=== PATIENT | female | born 1950 | race Caucasian/White ===

== ENCOUNTER 2017-11-29 14:35 | Emergency (ER) | payer MEDICARE, OTHER ==
[2017-11-29 14:44] VITALS: RESP 16
[2017-11-29] MEDS ORDERED: KETOROLAC 30 MG/ML 1 ML VIAL IVP STA (14:48)
[2017-11-29] MEDS ORDERED: KETOROLAC 60 MG/2 ML VIAL IVP STA (14:48)
--- NOTE | 2017-11-29 14:51 | ED ---
General Adult HPI - General Chief complaint: Chest Pain Stated complaint: Chest Pain Time Seen by Provider: 11/29/17 14:35 Source: patient, RN notes reviewed Mode of arrival: wheelchair Limitations: no limitations - History of Present Illness Initial comments: This is a 67-year-old female presents emergency Department complaining of left sided rib pain. Patient states the pain is been there for a week if she moves it's worse if she takes deep breath is worse. Patient states she does feel little bit more short of breath since the pain is gotten worse in the last couple of days. Patient states touching it makes it worse as well. Patient has not noticed any rashes. patient states the pain is never gone completely away for the last week. Patient states she's had no fever chills or cough. Patient denies any anterior chest pain. Patient denies any diaphoresis. Patient denies any nausea vomiting. Patient denies any injury but she states she is extremely active and she thought she just hurt something with her activity. Patient denies any abdominal pain. Patient denies any leg swelling or calf pain. Patient denies headache patient denies numbness weakness. - Related Data Home Medications Medication Instructions Recorded Confirmed Cholecalciferol [Vitamin D3] 1,000 unit PO DAILY 11/29/17 11/29/17 Vitamin B Complex 1 cap PO DAILY 11/29/17 11/29/17 traMADol HCL [Ultram] 50 mg PO Q8H PRN 11/29/17 11/29/17 Previous Rx's Medication Instructions Recorded Hydrocodone/Acetaminophen [[place] 1 each PO Q8HR PRN #1 tab 11/29/17 5-325] Ibuprofen [Motrin] 600 mg PO Q6HR PRN #20 tab 11/29/17 Orphenadrine [Norflex] 100 mg PO Q12H #20 tablet.er 11/29/17 Allergies Allergy/AdvReac Type Severity Reaction Status Date / Time No Known Allergies Allergy Verified 11/29/17 15:04 Review of Systems ROS Statement: Those systems with pertinent positive or pertinent negative responses have been documented in the HPI. ROS Other: All systems not noted in ROS Statement are negative. Past Medical History Past Medical History: Rheumatoid Arthritis (RA) History of Any Multi-Drug Resistant Organisms: None Reported Past Surgical History: Cholecystectomy Additional Past Surgical History / Comment(s): gastric sleeve surgery Past Psychological History: No Psychological Hx Reported Smoking Status: Never smoker Past Alcohol Use History: None Reported Past Drug Use History: None Reported General Exam - General Exam Comments Initial Comments: GENERAL: Patient is well-developed and well-nourished. Patient is nontoxic and well- hydrated and is in mild distress. ENT: Neck is soft and supple. No significant lymphadenopathy is noted. Oropharynx is clear. Moist mucous membranes. EYES: The sclera were anicteric and conjunctiva were pink and moist. Extraocular movements were intact and pupils were equal round and reactive to light. Eyelids were unremarkable. PULMONARY: Unlabored respirations. Good breath sounds bilaterally. No audible rales rhonchi or wheezing was noted. CARDIOVASCULAR: There is a regular rate and rhythm without any murmurs gallops or rubs. left lateral chest wall is tender to palpation there is no rash in the area. ABDOMEN: Soft and nontender with normal bowel sounds. No palpable organomegaly was noted. There is no palpable pulsatile mass. SKIN: Skin is clear with no lesions or rashes and otherwise unremarkable. NEUROLOGIC: Patient is alert and oriented x3. Cranial nerves II through XII are grossly intact. Motor and sensory are also intact. Normal speech, volume and content. Symmetrical smile. MUSCULOSKELETAL: Normal extremities with adequate strength and full range of motion. No lower extremity swelling or edema. No calf tenderness. LYMPHATICS: No significant lymphadenopathy is noted PSYCHIATRIC: Normal psychiatric evaluation. Normal interpersonal interactions appears functionally intact in deals appropriately with others. No signs of depression. No signs of anxiety. Limitations: no limitations Course Vital Signs 11/29/17 11/29/17 14:40 15:30 Temperature 98.2 F Pulse Rate 69 66 Respiratory 16 16 Rate Blood Pressure 153/80 134/73 O2 Sat by Pulse 100 98 Oximetry Medical Decision Making - Medical Decision Making EKG shows sinus rhythm at 69 bpm AK interval 206 QRS is under QT interval 386 QTC is 413. EKG shows no ST segment elevation or depression no T-wave abnormalities are noted. patient's chest x-ray showed no acute abnormality. After patient received pain medicine she was completely pain-free even movement did not elicit the same pain she had earlier. - Lab Data Result diagrams: 11/29/17 14:56 11/29/17 14:56 Lab Results 11/29/17 11/29/17 11/29/17 Range/Units 14:56 14:56 14:56 WBC 6.6 (3.8-10.6) k/uL RBC 4.92 (3.80-5.40) m/uL Hgb 13.9 (11.4-16.0) gm/dL Hct 42.0 (34.0-46.0) % MCV 85.4 (80.0-100.0) fL MCH 28.3 (25.0-35.0) pg MCHC 33.1 (31.0-37.0) g/dL RDW 13.6 (11.5-15.5) % Plt Count 250 (150-450) k/uL Neutrophils % 49 % Lymphocytes % 38 % Monocytes % 7 % Eosinophils % 3 % Basophils % 0 % Neutrophils # 3.2 (1.3-7.7) k/uL Lymphocytes # 2.5 (1.0-4.8) k/uL Monocytes # 0.5 (0-1.0) k/uL Eosinophils # 0.2 (0-0.7) k/uL Basophils # 0.0 (0-0.2) k/uL PT (9.0-12.0) sec INR (<1.2) APTT (22.0-30.0) sec D-Dimer (<0.60) mg/L FEU Sodium 141 (137-145) mmol/L Potassium 4.2 (3.5-5.1) mmol/L Chloride 104 (98-107) mmol/L Carbon Dioxide 28 (22-30) mmol/L Anion Gap 9 mmol/L BUN 15 (7-17) mg/dL Creatinine 0.77 (0.52-1.04) mg/dL Est GFR (MDRD) Af Amer >60 (>60 ml/min/1.73 sqM) Est GFR (MDRD) Non-Af >60 (>60 ml/min/1.73 sqM) Glucose 97 (74-99) mg/dL Calcium 9.6 (8.4-10.2) mg/dL Magnesium 1.9 (1.6-2.3) mg/dL Total Bilirubin 0.5 (0.2-1.3) mg/dL AST 27 (14-36) U/L ALT 26 (9-52) U/L Alkaline Phosphatase 84 (38-126) U/L Total Creatine Kinase 54 (30-135) U/L CK-MB (CK-2) 0.5 (0.0-2.4) ng/mL CK-MB (CK-2) Rel Index 0.9 Troponin I <0.012 (0.000-0.034) ng/mL Total Protein 6.7 (6.3-8.2) g/dL Albumin 3.9 (3.5-5.0) g/dL 11/29/17 Range/Units 14:56 WBC (3.8-10.6) k/uL RBC (3.80-5.40) m/uL Hgb (11.4-16.0) gm/dL Hct (34.0-46.0) % MCV (80.0-100.0) fL MCH (25.0-35.0) pg MCHC (31.0-37.0) g/dL RDW (11.5-15.5) % Plt Count (150-450) k/uL Neutrophils % % Lymphocytes % % Monocytes % % Eosinophils % % Basophils % % Neutrophils # (1.3-7.7) k/uL Lymphocytes # (1.0-4.8) k/uL Monocytes # (0-1.0) k/uL Eosinophils # (0-0.7) k/uL Basophils # (0-0.2) k/uL PT 10.2 (9.0-12.0) sec INR 1.0 (<1.2) APTT 22.5 (22.0-30.0) sec D-Dimer 0.56 (<0.60) mg/L FEU Sodium (137-145) mmol/L Potassium (3.5-5.1) mmol/L Chloride (98-107) mmol/L Carbon Dioxide (22-30) mmol/L Anion Gap mmol/L BUN (7-17) mg/dL Creatinine (0.52-1.04) mg/dL Est GFR (MDRD) Af Amer (>60 ml/min/1.73 sqM) Est GFR (MDRD) Non-Af (>60 ml/min/1.73 sqM) Glucose (74-99) mg/dL Calcium (8.4-10.2) mg/dL Magnesium (1.6-2.3) mg/dL Total Bilirubin (0.2-1.3) mg/dL AST (14-36) U/L ALT (9-52) U/L Alkaline Phosphatase (38-126) U/L Total Creatine Kinase (30-135) U/L CK-MB (CK-2) (0.0-2.4) ng/mL CK-MB (CK-2) Rel Index Troponin I (0.000-0.034) ng/mL Total Protein (6.3-8.2) g/dL Albumin (3.5-5.0) g/dL Disposition Clinical Impression: Chest wall pain Disposition: HOME SELF-CARE Condition: Good Instructions: Chest Pain (ED) Prescriptions: Hydrocodone/Acetaminophen [[place] 5-325] 1 each PO Q8HR PRN #1 tab PRN Reason: Pain Ibuprofen [Motrin] 600 mg PO Q6HR PRN #20 tab PRN Reason: For pain Orphenadrine [Norflex] 100 mg PO Q12H #20 tablet.er Referrals: Wilmar Calixto DO [Primary Care Provider] - 1-2 days Time of Disposition: 16:27
[2017-11-29 15:09] LABS: Basophils % (A) 0 %; Eosinophils # (A) 0.2 k/uL (0-0.7); Eosinophils % (A) 3 %; HGB 13.9 gm/dL (11.4-16.0); Lymphocytes # (A) 2.5 k/uL (1.0-4.8); Lymphocytes % (A) 38 %; MCH 28.3 pg (25.0-35.0); MCHC 33.1 g/dL (31.0-37.0); MCV 85.4 fL (80.0-100.0); Mean Platelet Volume 7.4; Monocytes # (A) 0.5 k/uL (0-1.0); Monocytes % (A) 7 %; Neutrophils # (A) 3.2 k/uL (1.3-7.7); Neutrophils % (A) 49 %; Platelet Count 250 k/uL (150-450); RBC 4.92 m/uL (3.80-5.40); RDW 13.6 % (11.5-15.5); WBC 6.6 k/uL (3.8-10.6)
--- NOTE | 2017-11-29 15:15 | XR ---
EXAMINATION TYPE: XR chest 2V DATE OF EXAM: 11/29/2017 COMPARISON: 02/08/2009 HISTORY: Chest pain TECHNIQUE: Frontal and lateral views of the chest are obtained. FINDINGS: Heart and mediastinum are normal. Lungs are clear. Diaphragm is normal. There are chest le ads. Bony thorax is intact. IMPRESSION: Normal chest. No change.
[2017-11-29 15:18] LABS: ALT 26 U/L (9-52); AST 27 U/L (14-36); Albumin 3.9 g/dL (3.5-5.0); Alkaline Phosphatase 84 U/L (38-126); Anion Gap 9 mmol/L; Blood Urea Nitrogen 15 mg/dL (7-17); Calcium 9.6 mg/dL (8.4-10.2); Carbon Dioxide 28 mmol/L (22-30); Chloride 104 mmol/L (98-107); Glucose 97 mg/dL (74-99); Magnesium 1.9 mg/dL (1.6-2.3); Potassium 4.2 mmol/L (3.5-5.1); Sodium 141 mmol/L (137-145); Total Bilirubin 0.5 mg/dL (0.2-1.3); Total Protein 6.7 g/dL (6.3-8.2)
[2017-11-29 15:24] LABS: D-Dimer 0.56 mg/L FEU (<0.60); Partial Thromboplastin Time 22.5 sec (22.0-30.0); Prothrombin Time 10.2 sec (9.0-12.0)
[2017-11-29 15:29] LABS: Creatine Kinase 54 U/L (30-135)
[2017-11-29] MEDS ORDERED: HYDROmorphone 0.5 MG/0.5 ML SYRINGE IVP STA (15:38)
[2017-11-29 15:41] LABS: Creatine Kinase MB 0.5 ng/mL (0.0-2.4); Troponin I <0.012 ng/mL (0.000-0.034)
[2017-11-29] MEDS ORDERED: HYDROmorphone 2 MG/ML 1 ML SYRINGE IVP STA (15:44)
[2017-11-29] MEDS ORDERED: HYDROmorphone 4 MG/ML 1 ML SYRINGE IVP STA (15:47)
[2017-11-29] MEDS: DIAZEPAM 5 MG/ML 2 ML INJ IVP STA ×2 (15:48→15:49)
[2017-11-29 16:38] VITALS: BP 148/70; PULSE 70; TEMP 97.8
== END 2017-11-29 16:37 | disposition home or self-care (01) ==
LOC: EC 14:35
DX: R07.89 Other chest pain (principal); R06.02 Shortness of breath; Z79.899 Other long term (current) drug therapy; Z53.8 Procedure and treatment not carried out for other reasons
CPT/HCPCS: 36415; 85379; 80053; 82550; 82553; 83735; 84484; 85025; 85610; 85730; 71046; 99285; 96374; 96375 ×2; J3360; J1885; J1170; 93005

== ENCOUNTER → 2018-01-04 | Outpatient (CLI) | payer MEDICARE, OTHER ==
--- NOTE | 2018-01-05 18:28 | ECHOF ---
Referral Reason:I34.0 Nonrheumatic Mitral Valve Insuffieciency MEASUREMENTS -------- HEIGHT: 162.6 cm WEIGHT: 81.6 kg BP: 158/68 RVIDd: 2.8 cm (< 3.3) IVSd: 1.1 cm (0.6 - 1.1) LVIDd: 4.1 cm (3.9 - 5.3) LVPWd: 1.1 cm (0.6 - 1.1) IVSs: 1.7 cm LVIDs: 2.9 cm LVPWs: 1.5 cm LA Diam: 3.2 cm (2.7 - 3.8) LAESV Index (A-L): 20.68 ml/m Ao Diam: 3.1 cm (2.0 - 3.7) AV Cusp: 1.9 cm (1.5 - 2.6) MV EXCURSION: 18.829 mm (> 18.000) MV EF SLOPE: 101 mm/s (70 - 150) EPSS: 0.5 cm MV E Raul: 0.58 m/s MV DecT: 194 ms MV A Raul: 0.70 m/s MV E/A Ratio: 0.84 AV maxP.04 mmHg AV meanP.01 mmHg RAP: 5.00 mmHg RVSP: 22.84 mmHg FINDINGS -------- Sinus rhythm. This was a technically adequate study. The left ventricular size is normal. There is borderline concentric left ventricular hypertrophy. Overall left ventricular systolic function is normal with, an EF between 55 - 60 %. The right ventricle is normal in size. Normal LA size by volume 22+/-6 ml/m2. The right atrium is normal in size. There is mild to moderate aortic valve sclerosis. There is mild aortic stenosis present. Peak/teagan n gradient across the Aortic Valve is 22.04mmHg / 12.01mmHg. Can't exclude possible Bicuspid Aov. There is trace mitral regurgitation. Mild tricuspid regurgitation present. Right ventricular systolic pressure is normal at < 35 mmHg. The pulmonic valve was not well visualized. The aortic root size is normal. Normal inferior vena cava with normal inspiratory collapse consistent with estimated right atrial pre ssure of 5 mmHg. There is no pericardial effusion. CONCLUSIONS -------- 1. Sinus rhythm. 2. This was a technically adequate study. 3. The left ventricular size is normal. 4. There is borderline concentric left ventricular hypertrophy. 5. Overall left ventricular systolic function is normal with, an EF between 55 - 60 %. 6. The right ventricle is normal in size. 7. Normal LA size by volume 22+/-6 ml/m2. 8. The right atrium is normal in size. 9. There is mild to moderate aortic valve sclerosis. 10. There is mild aortic stenosis present. 11. Peak/mean gradient across the Aortic Valve is 22.04mmHg / 12.01mmHg. 12. Can't exclude possible Bicuspid Aov. 13. There is trace mitral regurgitation. 14. Mild tricuspid regurgitation present. 15. Right ventricular systolic pressure is normal at < 35 mmHg. 16. The pulmonic valve was not well visualized. 17. The aortic root size is normal. 18. Normal inferior vena cava with normal inspiratory collapse consistent with estimated right atrial pressure of 5 mmHg. 19. There is no pericardial effusion. MACHINE CARTON MARKER: Shala Paris RDCS
== END | disposition home or self-care (01) ==
LOC: RADECHMAIN 14:30
PROVIDERS: ATTEND Family Medicine
DX: I08.2 Rheumatic disorders of both aortic and tricuspid valves (principal)
CPT/HCPCS: 93306

== ENCOUNTER → 2018-01-25 | Outpatient (CLI) | payer MEDICARE, OTHER ==
--- NOTE | 2018-01-25 16:02 | BD ---
EXAMINATION TYPE: MG DEXA axial skeleton. DATE OF EXAM: 01/25/2018 COMPARISON: NONE CLINICAL HISTORY: 67-year-old female postmenopausal SCREENING for osteopenia Height: 5'3 Weight: 197 FRAX RISK QUESTIONS: Alcohol (3 or more units per day): n Family History (Parent hip fracture): n Glucocorticoids (More than 3mos): n (Ex: prednisone, prednisolone, methylprednisolone, dexamethasone, and hydrocortisone). History of Fracture in Adulthood: n Secondary Osteoporosis: 1. Type 1 Diabetes: n 2. Hyperthyroidism: n 3. Menopause before 45: y 4. Malnutrition: n 5. Chronic liver disease: n Rheumatoid Arthritis: y Current Tobacco Use: n RISK FACTORS HISTORY OF: Postmenopausal woman: MEDICATIONS: Additional Medications: pain Additional History: gastric sleeve surgery 2012, lost 125 lbs EXAM MEASUREMENTS: Bone mineral densitometry was performed using the [employer] System. Bone mineral density as measured about the Lumbar spine is: ----- L1-L4(G/cm2): 1.369 T Score Values are as follows: ----- L2: 1.0 ----- L3: 1.8 ----- L4: 2.9 ----- L1-L4;1.6 Bone mineral density about the R hip (g/cm2): 0.830 Bone mineral density about the L hip (g/cm2): 0.925 T Score values are as follows: -----R Neck: -1.2 -----L Neck: -1.5 -----R Total: -1.0 -----L Total: -0.3 IMPRESSION: Osteopenia (T Score between -2.5 and -1). There is slightly increased risk of fracture and the patient may be considered for treatment. Re-Screen 2-5 years. NOTE: T-SCORE=SD OF THE YOUNG ADULT MEAN.
--- NOTE | 2018-01-28 09:54 | MM ---
Reason for exam: screening (asymptomatic). Last mammogram was performed 2 years and 1 month ago. History: Patient is postmenopausal. Family history of breast cancer in sister at age 60 and breast cancer in sister at age 58. Physical Findings: A clinical breast exam by your physician is recommended on an annual basis and results should be correlated with mammographic findings. MG 3D Screening Mammo W/Cad Bilateral CC and MLO view(s) were taken. Prior study comparison: December 24, 2015, bilateral MG screening mammo w CAD. October 17, 2014, bilateral MG screening mammo w CAD. There are scattered fibroglandular densities. No significant changes when compared with prior studies. ASSESSMENT: Negative, BI-RAD 1 RECOMMENDATION: Routine screening mammogram of both breasts in 1 year.
== END | disposition home or self-care (01) ==
LOC: RADMAMWWP 13:20
PROVIDERS: ATTEND Family Medicine
DX: Z12.31 Encounter for screening mammogram for malignant neoplasm of breast (principal); Z13.820 Encounter for screening for osteoporosis; M85.80 Other specified disorders of bone density and structure, unspecified site
CPT/HCPCS: 77063; 77067; 77080

== ENCOUNTER → 2018-04-01 | Outpatient (CLI) | payer MEDICARE, OTHER | END | disposition home or self-care (01) | LOC: RADECHMAIN 16:18 | PROVIDERS: ATTEND Family Medicine | DX: Z53.9 Procedure and treatment not carried out, unspecified reason (principal) ==

== ENCOUNTER → 2019-03-07 | Outpatient (CLI) | payer MEDICARE, OTHER ==
--- NOTE | 2019-03-08 10:54 | ECHOF ---
Referral Reason:R01.1 cardiac murmur MEASUREMENTS -------- HEIGHT: 162.6 cm WEIGHT: 81.6 kg BP: 119/58 RVIDd: 2.9 cm (< 3.3) IVSd: 1.0 cm (0.6 - 1.1) LVIDd: 4.2 cm (3.9 - 5.3) LVPWd: 1.2 cm (0.6 - 1.1) IVSs: 1.5 cm LVIDs: 2.8 cm LVPWs: 1.8 cm LA Diam: 3.5 cm (2.7 - 3.8) LAESV Index (A-L): 24.89 ml/m Ao Diam: 3.2 cm (2.0 - 3.7) AV Cusp: 0.9 cm (1.5 - 2.6) EPSS: 0.1 cm MV E Raul: 0.62 m/s MV DecT: 246 ms MV A Raul: 0.63 m/s MV E/A Ratio: 0.98 AV maxP.39 mmHg AV meanP.52 mmHg RAP: 5.00 mmHg RVSP: 27.22 mmHg MV EF SLOPE: 140.01 mm/s (70 - 150) MV EXCURSION: 2.46 cm (> 18.000) FINDINGS -------- Sinus rhythm. This was a technically adequate study. The left ventricular size is normal. There is borderline concentric left ventricular hypertrophy. Overall left ventricular systolic function is normal with, an EF between 60 - 65 %. The right ventricle is normal in size. Normal LA size by volume 22+/-6 ml/m2. The right atrium is normal in size. Aneurysmal Interatrial septum. There is moderate aortic valve sclerosis. Trace amount of aortic regurgitation. There is mild ao rtic stenosis present. Peak/mean gradient across the Aortic Valve is 28.39mmHg / 14.52mmHg. Can't exclude possible Bicuspid Aov. The mitral valve leaflets are mildly thickened. Mild mitral annular calcification present. Mild m itral regurgitation is present. Mild tricuspid regurgitation present. Right ventricular systolic pressure is normal at < 35 mmHg. Trace/mild (physiologic) pulmonic regurgitation. The aortic root size is normal. Normal inferior vena cava with normal inspiratory collapse consistent with estimated right atrial pre ssure of 5 mmHg. There is no pericardial effusion. CONCLUSIONS -------- 1. Sinus rhythm. 2. This was a technically adequate study. 3. The left ventricular size is normal. 4. There is borderline concentric left ventricular hypertrophy. 5. Overall left ventricular systolic function is normal with, an EF between 60 - 65 %. 6. The right ventricle is normal in size. 7. Normal LA size by volume 22+/-6 ml/m2. 8. The right atrium is normal in size. 9. Aneurysmal Interatrial septum. 10. There is moderate aortic valve sclerosis. 11. Trace amount of aortic regurgitation. 12. There is mild aortic stenosis present. 13. Peak/mean gradient across the Aortic Valve is 28.39mmHg / 14.52mmHg. 14. Can't exclude possible Bicuspid Aov. 15. The mitral valve leaflets are mildly thickened. 16. Mild mitral annular calcification present. 17. Mild mitral regurgitation is present. 18. Mild tricuspid regurgitation present. 19. Right ventricular systolic pressure is normal at < 35 mmHg. 20. Trace/mild (physiologic) pulmonic regurgitation. 21. The aortic root size is normal. 22. Normal inferior vena cava with normal inspiratory collapse consistent with estimated right atrial pressure of 5 mmHg. 23. There is no pericardial effusion. CHEMISTRY TECHNICIAN: MAGALIE Covington
== END | disposition home or self-care (01) ==
LOC: RADECHMAIN 13:09
PROVIDERS: ATTEND Family Medicine
DX: I08.1 Rheumatic disorders of both mitral and tricuspid valves (principal); I25.3 Aneurysm of heart
CPT/HCPCS: 93306

== ENCOUNTER → 2019-03-10 | Outpatient (CLI) | payer MEDICARE, OTHER ==
--- NOTE | 2019-03-11 10:00 | MM ---
Reason for exam: screening (asymptomatic). Last mammogram was performed 1 year and 1 month ago. History: Patient is postmenopausal. Family history of breast cancer in sister at age 60 and breast cancer in sister at age 58. Physical Findings: A clinical breast exam by your physician is recommended on an annual basis and results should be correlated with mammographic findings. MG 3D Screening Mammo W/Cad Bilateral CC and MLO view(s) were taken. Prior study comparison: January 25, 2018, bilateral MG 3d screening mammo w/cad. December 24, 2015, bilateral MG screening mammo w CAD. There are scattered fibroglandular densities. No significant changes when compared with prior studies. ASSESSMENT: Benign, BI-RAD 2 RECOMMENDATION: Routine screening mammogram of both breasts in 1 year.
== END | disposition home or self-care (01) ==
LOC: RADMAMWWP 12:22
PROVIDERS: ATTEND Family Medicine
DX: Z12.31 Encounter for screening mammogram for malignant neoplasm of breast (principal)
CPT/HCPCS: 77063; 77067

== ENCOUNTER → 2020-05-15 | Outpatient (CLI) | payer MEDICARE, OTHER ==
--- NOTE | 2020-05-16 08:43 | MM ---
Reason for exam: screening (asymptomatic). Last mammogram was performed 1 year and 2 months ago. History: Patient is postmenopausal. Family history of breast cancer in sister at age 60 and breast cancer in sister at age 58. Physical Findings: A clinical breast exam by your physician is recommended on an annual basis and results should be correlated with mammographic findings. MG 3D Screening Mammo W/Cad Bilateral CC and MLO view(s) were taken. Prior study comparison: March 10, 2019, bilateral MG 3d screening mammo w/cad. January 25, 2018, bilateral MG 3d screening mammo w/cad. The breast tissue is heterogeneously dense. This may lower the sensitivity of mammography. There are benign appearing round linear calcifications bilaterally. There is no discrete abnormality. ASSESSMENT: Benign, BI-RAD 2 RECOMMENDATION: Routine screening mammogram of both breasts in 1 year.
== END | disposition home or self-care (01) ==
LOC: RADMAMWWP 11:18
PROVIDERS: ATTEND Family Medicine
DX: Z12.31 Encounter for screening mammogram for malignant neoplasm of breast (principal)
CPT/HCPCS: 77063; 77067

== ENCOUNTER → 2020-08-23 | Outpatient (CLI) | payer MEDICARE, OTHER | END | disposition home or self-care (01) | LOC: LABWHC1 15:21 | PROVIDERS: ATTEND Family Medicine | DX: R19.7 Diarrhea, unspecified (principal) | CPT/HCPCS: U0003; C9803 ==

== ENCOUNTER → 2021-04-11 | Outpatient (CLI) | payer MEDICARE, OTHER ==
--- NOTE | 2021-04-11 18:13 | ECHOF ---
Referral Reason:I35.0 Nnrheumatic aortic stenosis; R09.89 other MEASUREMENTS -------- HEIGHT: 165.1 cm WEIGHT: 77.1 kg BP: RVIDd: 3.6 cm (< 3.3) IVSd: 1.4 cm (0.6 - 1.1) LVIDd: 4.4 cm (3.9 - 5.3) LVPWd: 1.3 cm (0.6 - 1.1) IVSs: 1.7 cm LVIDs: 3.2 cm LVPWs: 1.6 cm LAESV Index (A-L): 23.36 ml/m Ao Diam: 2.9 cm (2.0 - 3.7) AV Cusp: 1.6 cm (1.5 - 2.6) LA Diam: 3.4 cm (2.7 - 3.8) MV EXCURSION: 20.174 mm (> 18.000) MV EF SLOPE: 47 mm/s (70 - 150) EPSS: 0.4 cm MV E Raul: 0.64 m/s MV DecT: 211 ms MV A Raul: 0.73 m/s MV E/A Ratio: 0.88 AV maxP.92 mmHg AV meanP.75 mmHg RAP: 5.00 mmHg RVSP: 38.72 mmHg FINDINGS -------- Sinus rhythm. This was a technically adequate study. The left ventricular size is normal. There is moderate concentric left ventricular hypertrophy. O verall left ventricular systolic function is normal with, an EF between 55 - 60 %. The diastolic fi lling pattern is normal for the age of the patient 10.43. The right ventricle is mildly enlarged. Normal LA size by volume 22+/-6 ml/m2. The right atrial size is normal. Interatrial and interventricular septum intact. There is no evidence of aortic regurgitation. There is moderate aortic stenosis present. Peak/teagan n gradient across the Aortic Valve is 46.92mmHg / 27.75mmHg. Functionally bicuspid aortic valve. Mild mitral annular calcification present. Mild mitral regurgitation is present. The tricuspid valve appears structurally normal. Mild tricuspid regurgitation present. There is m ild pulmonary hypertension. The right ventricular systolic pressure, as measured by Doppler, is 38. 72mmHg. There is no pulmonic regurgitation present. The aortic root size is normal. Normal inferior vena cava with normal inspiratory collapse consistent with estimated right atrial pre ssure of 5 mmHg. There is no pericardial effusion. CONCLUSIONS -------- 1. There is moderate concentric left ventricular hypertrophy. 2. Overall left ventricular systolic function is normal with, an EF between 55 - 60 %. 3. The right ventricle is mildly enlarged. 4. Normal LA size by volume 22+/-6 ml/m2. 5. There is moderate aortic stenosis present. 6. Peak/mean gradient across the Aortic Valve is 46.92mmHg / 27.75mmHg. 7. Functionally bicuspid aortic valve. 8. Mild mitral annular calcification present. 9. Mild mitral regurgitation is present. 10. Mild tricuspid regurgitation present. 11. There is mild pulmonary hypertension. 12. There is no pericardial effusion. FISHERIES DIRECTOR: Tatiana Hernandez RDCS
--- NOTE | 2021-04-12 07:15 | US ---
EXAMINATION TYPE: US carotid duplex BILAT DATE OF EXAM: 04/11/2021 COMPARISON: NONE CLINICAL HISTORY: R09.89 OTHER SPECIFIED SYMPTOMS AND SIGNS INVOLVING. Bruit EXAM MEASUREMENTS: RIGHT: Peak Systolic Velocity (PSV) cm/sec ----- Right CCA: 70.6 ----- Right ICA: 104.0 ----- Right ECA: 96.8 ICA/CCA ratio: 1.5 RIGHT: End Diastole cm/sec ----- Right CCA: 19.8 ----- Right ICA: 35.7 ----- Right ECA: 12.5 LEFT: Peak Systolic Velocity (PSV) cm/sec ----- Left CCA: 54.5 ----- Left ICA: 99.7 ----- Left ECA: 69.2 ICA/CCA ratio: 1.8 LEFT: End Diastole cm/sec ----- Left CCA: 16.9 ----- Left ICA: 40.1 ----- Left ECA: 0 VERTEBRALS (direction of flow): Right Vertebral: Antegrade Left Vertebral: Antegrade Rhythm: Normal No significant stenosis seen IMPRESSION: No sonographic evidence for hemodynamically significant stenosis in the bilateral carotid arteries. Criteria for Assigning % of Stenosis / Diameter reduction (Estimation based on the indirect measurements of the internal carotid artery velocities (ICA PSV). 1. Normal (no stenosis)=ICA PSV < 125 cm/s: ratio < 2.0: ICA EDV<40 cm/s. 2. Less than 50% stenosis=ICA PSV < 125 cm/s: ratio < 2.0: ICA EDV<40 cm/s. 3. 50 to 69% stenosis=ICA PSV of 125 to 230 cm/s: ration 2.0 ? 4.0: ICA EDV 40-100 cm/s. 4. Greater than 70% stenosis to near occlusion= ICA PSV > 230 cm/s: ratio > 4.0: ICA EDV > 100 cm/s. 5. Near occlusion= ICA PSV velocities may be low or undetectable: variable ratio and ICA EDV. 6. Total occlusion=unable to detect flow.
== END | disposition home or self-care (01) ==
LOC: RADECHMAIN 14:54
PROVIDERS: ATTEND Family Medicine
DX: I08.1 Rheumatic disorders of both mitral and tricuspid valves (principal); I27.20 Pulmonary hypertension, unspecified; R09.89 Other specified symptoms and signs involving the circulatory and respiratory systems
CPT/HCPCS: 93306; 93880

== ENCOUNTER → 2022-07-01 | Outpatient (CLI) | payer MEDICARE, OTHER ==
--- NOTE | 2022-07-11 09:24 | MM ---
Reason for Exam: Screening (asymptomatic). Last mammogram was performed 2 year(s) and 2 month(s) ago. Patient History: Menarche at age 14. First Full-Term at age 26. Left ovary removed at age 29. Right ovary removed at age 29. Hysterectomy at age 29. Postmenopausal. Sister had breast cancer, age 60. Sister had breast cancer, age 58. Risk Values: Kavitha 5 year model risk: 6.0%. NCI Lifetime model risk: 16.5%. Prior Study Comparison: 01/25/2018 Bilateral Screening Mammogram, [facility]. 03/10/2019 Bilateral Screening Mammogram, [facility]. 05/15/2020 Bilateral Screening Mammogram, [facility]. Tissue Density: There are scattered fibroglandular densities. Findings: Analyzed By CAD. There is no suspicious group of microcalcifications or new suspicious mass in either breast. Overall Assessment: Benign, BI-RAD 2 Management: Screening Mammogram of both breasts in 1 year. A clinical breast exam by your physician is recommended on an annual basis and results should be correlated with mammographic findings. Electronically signed and approved by: Jam Martin M.D. Radiologis
== END | disposition home or self-care (01) ==
LOC: RADMAMWWP 20:59
PROVIDERS: ATTEND Family Medicine
DX: Z12.31 Encounter for screening mammogram for malignant neoplasm of breast (principal); Z78.0 Asymptomatic menopausal state; Z80.3 Family history of malignant neoplasm of breast
CPT/HCPCS: 77063; 77067

== ENCOUNTER 2023-04-04 07:41 | Emergency (ER) | payer MEDICARE, OTHER ==
[2023-04-04 07:54] VITALS: TEMP 98.2
[2023-04-04] MEDS ORDERED: KETOROLAC 15 MG/ML 1 ML VIAL IVP STA (08:25)
[2023-04-04] MEDS ORDERED: ORPHENADRINE 30 MG/ML 2 ML VIAL IVP STA (08:26)
--- NOTE | 2023-04-04 09:20 | ED ---
General Adult HPI - General Chief complaint: Back Pain/Injury Stated complaint: numbness rt side Time Seen by Provider: 04/04/23 07:59 Source: patient, family (daughter), RN notes reviewed Mode of arrival: wheelchair Limitations: physical limitation - History of Present Illness Initial comments: Patient is a 72-year-old female presenting to the emergency room with severe pain in the right shoulder with reduced range of motion without trauma. She also reports radiculopathy radiating from the shoulder towards the neck and down her arm. She denies any numbness or tingling not in these locations. She states that the pain began during the night and has progressively worsened. She denies any abnormal activity previously that would've possibly strained her shoulder. She denies any focal neurological deficits, weakness not related to he r pain in her right shoulder, chest pain, shortness of breath, abdominal pain, nausea, vomiting, fevers or chills. She took [id number] Tylenol for pain without any relief in symptoms. She has a past medical history significant for rheumatoid arthritis but is not currently on any immune suppressant therapy. - Related Data Home Medications Medication Instructions Recorded Confirmed Cholecalciferol [Vitamin D3] 1,000 unit PO DAILY 11/29/17 11/29/17 Vitamin B Complex 1 cap PO DAILY 11/29/17 11/29/17 traMADol HCL [Ultram] 50 mg PO Q8H PRN 11/29/17 11/29/17 Previous Rx's Medication Instructions Recorded Hydrocodone/Acetaminophen [[place] 1 each PO Q8HR PRN #1 tab 11/29/17 5-325] Ibuprofen [Motrin] 600 mg PO Q6HR PRN #20 tab 11/29/17 Orphenadrine [Norflex] 100 mg PO Q12H #20 tablet.er 11/29/17 Cyclobenzaprine HCl 5 mg PO TID PRN 7 Days #21 tab 04/04/23 Ketorolac [Toradol] 10 mg PO Q8H PRN 5 Days #15 tab 04/04/23 Allergies Allergy/AdvReac Type Severity Reaction Status Date / Time No Known Allergies Allergy Verified 04/04/23 07:54 Review of Systems ROS Statement: Those systems with pertinent positive or pertinent negative responses have been documented in the HPI. ROS Other: All systems not noted in ROS Statement are negative. Past Medical History Past Medical History: Rheumatoid Arthritis (RA) History of Any Multi-Drug Resistant Organisms: None Reported Past Surgical History: Bariatric Surgery, Cholecystectomy, Joint Replacement Additional Past Surgical History / Comment(s): gastric sleeve surgery, rt knee Past Psychological History: No Psychological Hx Reported Smoking Status: Never smoker Past Alcohol Use History: None Reported Past Drug Use History: None Reported General Exam Limitations: physical limitation General appearance: alert Head exam: Present: atraumatic, normocephalic, normal inspection Eye exam: Present: normal appearance, PERRL, EOMI. Absent: scleral icterus, conjunctival injection, periorbital swelling ENT exam: Present: normal exam, mucous membranes moist Neck exam: Present: normal inspection, full ROM. Absent: tenderness Respiratory exam: Present: normal lung sounds bilaterally. Absent: respiratory distress, wheezes, rales, rhonchi, stridor Cardiovascular Exam: Present: regular rate, normal rhythm, normal heart sounds. Absent: systolic murmur, diastolic murmur, rubs, gallop, clicks GI/Abdominal exam: Present: soft, normal bowel sounds. Absent: distended, tenderness, guarding, rebound, rigid Right Shoulder Exam: Present: tenderness, tenderness over AC joint. Absent: full ROM, swelling, abrasion, laceration, ecchymosis, deformity, crepitus, dislocation Vascular: Absent: vascular compromise Back exam: Present: normal inspection. Absent: vertebral tenderness Neurological exam: Present: alert, oriented X3, CN II-XII intact Expanded Cranial nerves: EOM's Intact: Normal, Gag Reflex: Normal, Tongue Deviation: Normal, Nystagmus: Normal, Facial Sensation: Abnormal Right (limited left jaw line radiating from shoulder, neck and trapezius), Facial Palsy with Forehead Movement: Normal, Facial Palsy without Forehead Movement: Normal Ataxia: Absent: yes Sensory exam: Upper Extremity Light Touch: Abnormal Right (Upper arm shoulder and trapezius) [place] Total: 15 Psychiatric exam: Present: normal affect, normal mood Skin exam: Present: warm, dry, intact, normal color. Absent: rash Course Vital Signs 04/04/23 04/04/23 04/04/23 07:51 09:00 10:20 Temperature 98.2 F Pulse Rate 69 64 76 Respiratory 20 18 18 Rate Blood Pressure 150/77 133/99 151/90 O2 Sat by Pulse 98 98 98 Oximetry Medical Decision Making - Medical Decision Making Was pt. sent in by a medical professional or institution (RUBINA Kiser, POULTRY VACCINATOR, urgent care, hospital, or care home...) When possible be specific @ -No Did you speak to anyone other than the patient for history (EMS, parent, family, police, friend...)? What history was obtained from this source @ -No Did you review nursing and triage notes (agree or disagree)? Why? @ -I reviewed and agree with nursing and triage notes Were old charts reviewed (outside hosp., previous admission, EMS record, old EKG, old radiological studies, urgent care reports/EKG's, care home records)? Report findings @ -No old charts were reviewed Differential Diagnosis (chest pain, altered mental status, abdominal pain women, abdominal pain men, vaginal bleeding, weakness, fever, dyspnea, syncope, headache, dizziness, GI bleed, back pain, seizure, CVA, palpatations, mental health, musculoskeletal)? @ -Differential Musculoskeletal Muscular strain, contusion, ligament sprain, fracture, arthritis, septic arthritis, bursitis, cellulitis, muscle spasm, nerve compression, DVT, arterial occlusion, herpes zoster, electrolyte abnormality, tumor.... This is not meant to be in all inclusive list EKG interpreted by me (3pts min.). @ -Sinus rhythm, ventricular rate 65 bpm, FL interval 140 ms, QRS duration 97 ms, QT/QTC 383/395 ms, PRT axes 60, 48, 24 X-rays interpreted by me (1pt min.). @ -X-ray of right shoulder: Capsular hypertrophy concerning for low-grade sprain. X-ray cervical spine: Degenerative disc disease. Foramen narrowing moderate right sized C7-T1. No fracture or subluxation. X-ray thoracic spine: Spondylosis mid and lower thoracic spine, no fracture. CT interpreted by me (1pt min.). @ -None done U/S interpreted by me (1pt. min.). @ -None done What testing was considered but not performed or refused? (CT, X-rays, U/S, labs)? Why? @ -None What meds were considered but not given or refused? Why? @ -None Did you discuss the management of the patient with other professionals (professionals i.e. RUBINA Kiser, POULTRY VACCINATOR, lab, RT, psych nurse, social human services assistants, gas engine operator, teacher, human resources officer, piano case maker)? Give summary @ -No Was smoking cessation discussed for >3mins.? @ -No Was critical care preformed (if so, how long)? @ -No Were there social determinants of health that impacted care today? How? (Homelessness, low income, unemployed, alcoholism, drug addiction, transportation, low edu. Level, literacy, decrease access to med. care, shelter, rehab)? @ -No Was there de-escalation of care discussed even if they declined (Discuss DNR or withdrawal of care, Hospice)? DNR status @ -No What co-morbidities impacted this encounter? (DM, HTN, Smoking, COPD, CAD, Cancer, CVA, ARF, Chemo, Hep., AIDS, mental health diagnosis, sleep apnea, morbid obesity)? @ -None Was patient admitted / discharged? Hospital course, mention meds given and route, prescriptions, significant lab abnormalities, going to OR and other pert inent info. @ -72-year-old female presenting to the emergency room with severe pain in the right shoulder with reduced range of motion without trauma. She also reports radiculopathy radiating from the shoulder towards the neck and down her arm. She denies any numbness or tingling not in these locations. Will give Toradol IV along with reduced Norflex dose of 30 mg IV. Triag nurse completed EKG will order. Will also obtain laboratory studies of CBC, CMP, and troponin. EKG shows sinus rhythm. No abnormalities on laboratory studies including normal CBC, normal CMP and negative troponin. X-ray of shoulder concerning for low- grade sprain versus degenerative changes. C7-T1 right moderate foramen narrowing noted on cervical spine x-ray. Thoracic spine without any acute abnormalities. Pain improved with Toradol and Norflex. Findings discussed with patient and daughter at bedside. Advised no indication for further diagnostic imaging or laboratory studies. Encouraged gentle range of motion as tolerated along with continuation of muscle relaxer and anti-inflammatory. Advised may also use previously prescribed tramadol for pain as well. Advised not to drive after taking Flexeril and not to take Flexeril and tramadol together. Encouraged follow-up with primary care provider. Questions and concerns answered. Return parameters to the emergency room discussed. Will discharge home in stable condition on anti-inflammatory and muscle relaxer to treat right shoulder sprain along with cervical radiculopathy encouraging range of motion and follow-up with primary care provider. Undiagnosed new problem with uncertain prognosis? @ -No Drug Therapy requiring intensive monitoring for toxicity (Heparin, Nitro, Insulin, Cardizem)? @ -No Were any procedures done? @ -No Diagnosis/symptom? @ -Right shoulder strain Acute, or Chronic, or Acute on Chronic? @ -Acute Uncomplicated (without systemic symptoms) or Complicated (systemic symptoms)? @ -Uncomplicated Side effects of treatment? @ -No Exacerbation, Progression, or Severe Exacerbation? @ -No Poses a threat to life or bodily function? How? (Chest pain, [place], DC, pneumonia, PE, COPD, DKA, ARF, appy, cholecystitis, CVA, Diverticulitis, Homicidal, Suicidal, threat to staff... and all critical care pts) @ -No Diagnosis/symptom? @ -Cervical radiculopathy Acute, or Chronic, or Acute on Chronic? @ -Acute Uncomplicated (without systemic symptoms) or Complicated (systemic symptoms)? @ -Uncomplicated Side effects of treatment? @ -none Exacerbation, Progression, or Severe Exacerbation] @ -no Poses a threat to life or bodily function? @ -no Case discussed with Dr. Juárez. - Lab Data Result diagrams: 04/04/23 09:06 04/04/23 09:06 Lab Results 04/04/23 04/04/23 04/04/23 Range/Units 09:06 09:06 09:06 WBC 7.4 (3.8-10.6) k/uL RBC 4.52 (3.80-5.40) m/uL Hgb 13.1 (11.4-16.0) gm/dL Hct 39.4 (34.0-46.0) % MCV 87.2 (80.0-100.0) fL MCH 29.0 (25.0-35.0) pg MCHC 33.3 (31.0-37.0) g/dL RDW 13.9 (11.5-15.5) % Plt Count 170 (150-450) k/uL MPV 9.1 Neutrophils % 69 % Lymphocytes % 18 % Monocytes % 8 % Eosinophils % 2 % Basophils % 0 % Neutrophils # 5.2 (1.3-7.7) k/uL Lymphocytes # 1.4 (1.0-4.8) k/uL Monocytes # 0.6 (0-1.0) k/uL Eosinophils # 0.2 (0-0.7) k/uL Basophils # 0.0 (0-0.2) k/uL Sodium 138 (137-145) mmol/L Potassium 4.1 (3.5-5.1) mmol/L Chloride 104 (98-107) mmol/L Carbon Dioxide 28 (22-30) mmol/L Anion Gap 6 mmol/L BUN 17 (7-17) mg/dL Creatinine 0.72 (0.52-1.04) mg/dL Est GFR (CKD-EPI)AfAm >90 (>60 ml/min/1.73 sqM) Est GFR (CKD-EPI)NonAf 85 (>60 ml/min/1.73 sqM) Glucose 97 (74-99) mg/dL Calcium 8.8 (8.4-10.2) mg/dL Total Bilirubin 0.7 (0.2-1.3) mg/dL AST 24 (14-36) U/L ALT 13 (4-34) U/L Alkaline Phosphatase 91 (38-126) U/L Troponin I <0.012 (0.000-0.034) ng/mL Total Protein 6.5 (6.3-8.2) g/dL Albumin 3.7 (3.5-5.0) g/dL Disposition Clinical Impression: Sprain of right shoulder joint, Foraminal stenosis of cervical region Disposition: HOME SELF-CARE Condition: Stable Instructions (If sedation given, give patient instructions): Shoulder Sprain (ED), Cervical Radiculopathy (ED) Additional Instructions: Utilize muscle relaxer of Flexeril as needed for muscle spasms. Utilize Toradol as needed for pain, do not take other NSAIDs when taking Toradol. May continue to use your already prescribed tramadol for pain as well. Do not take tramadol and Flexeril together. Gentle range of motion as tolerated encouraged. Please follow-up with your primary care provider. Please return to the Emergency Department if symptoms worsen or any other concerns. Prescriptions: Cyclobenzaprine HCl 5 mg PO TID PRN 7 Days #21 tab PRN Reason: Spasms Ketorolac [Toradol] 10 mg PO Q8H PRN 5 Days #15 tab PRN Reason: Pain Is patient prescribed a controlled substance at d/c from ED?: No Referrals: Wilmar Calixto DO [Primary Care Provider] - 1-2 days Time of Disposition: 10:39
[2023-04-04 09:37] LABS: Basophils % (A) 0 %; Eosinophils # (A) 0.2 k/uL (0-0.7); Eosinophils % (A) 2 %; HCT 39.4 % (34.0-46.0); HGB 13.1 gm/dL (11.4-16.0); Lymphocytes # (A) 1.4 k/uL (1.0-4.8); Lymphocytes % (A) 18 %; MCHC 33.3 g/dL (31.0-37.0); MCV 87.2 fL (80.0-100.0); Mean Platelet Volume 9.1; Monocytes # (A) 0.6 k/uL (0-1.0); Monocytes % (A) 8 %; Neutrophils # (A) 5.2 k/uL (1.3-7.7); Neutrophils % (A) 69 %; Platelet Count 170 k/uL (150-450); RBC 4.52 m/uL (3.80-5.40); RDW 13.9 % (11.5-15.5); WBC 7.4 k/uL (3.8-10.6)
[2023-04-04 09:46] VITALS: RESP 18
--- NOTE | 2023-04-04 09:48 | XR ---
EXAMINATION TYPE: XR cervical spine 5 views comp, XR thoracic spine 3 views complete, XR shoulder com plete 3 views RT DATE OF EXAM: 04/04/2023 COMPARISON: None HISTORY: 72-year-old female right shoulder pain with radiculopathy FINDINGS: Cervical spine: No predental space widening or prevertebral soft tissue swelling. Advanced facet and uncovertebral efren int arthropathy is present. Mild multilevel degenerative disc disease. Trace grade 1 anterolisthesis C6-C7. Remaining alignment appears maintained. Mild bony neuroforaminal narrowing on the right and C4 -C5 and C6-C7. Possibly more moderate at C7-T1. On the left, mild bony neuroforaminal narrowing at C6 -C7 and C7-T1. Normal odontoid view. Thoracic spine: 12 vertebrae thoracic vertebral bodies. All pedicles are visualized. There is some anterior and right lateral endplate spondylosis mid to lower thoracic spine noted. Vertebral body heights are preserved and alignment is maintained. Right shoulder: Capsular hypertrophy at the AC joint. Joint spaces relatively maintained. Subacromial space is preser radu. No tendinous or bursal calcifications. No acute fracture, subluxation, or dislocation. IMPRESSION: 1. Cervical spine: Multilevel advanced uncovertebral joint and facet arthropathy. Degenerative grade 1 anterolisthesis C6-C7. Possible moderate right-sided neuroforaminal narrowing at C7-T1 and mild at C4-C5 and C6-C7. 2. Thoracic spine: Anterior and right lateral endplate spondylosis mid to lower thoracic spine. No ve rtebral compression collapse or malalignment seen. 3. Right shoulder: Capsular hypertrophy of the AC joint could be on a degenerative basis or could ref lect a low-grade AC joint sprain. Otherwise, no acute osseous abnormality seen.
[2023-04-04 09:50] LABS: ALT 13 U/L (4-34); AST 24 U/L (14-36); African American GFR (CKD) >90 (>60 ml/min/1.73 sqM); Albumin 3.7 g/dL (3.5-5.0); Alkaline Phosphatase 91 U/L (38-126); Anion Gap 6 mmol/L; Blood Urea Nitrogen 17 mg/dL (7-17); Calcium 8.8 mg/dL (8.4-10.2); Carbon Dioxide 28 mmol/L (22-30); Chloride 104 mmol/L (98-107); Glucose 97 mg/dL (74-99); Non-African American GFR(CKD) 85 (>60 ml/min/1.73 sqM); Potassium 4.1 mmol/L (3.5-5.1); Sodium 138 mmol/L (137-145); Total Bilirubin 0.7 mg/dL (0.2-1.3); Total Protein 6.5 g/dL (6.3-8.2)
[2023-04-04 10:21] VITALS: BP 151/90; PULSE 76
== END 2023-04-04 10:59 | disposition home or self-care (01) ==
LOC: EC 07:41
DX: S43.401A Unspecified sprain of right shoulder joint, initial encounter (principal); M48.02 Spinal stenosis, cervical region; M43.12 Spondylolisthesis, cervical region; M47.812 Spondylosis without myelopathy or radiculopathy, cervical region; M47.814 Spondylosis without myelopathy or radiculopathy, thoracic region; X58.XXXA Exposure to other specified factors, initial encounter
CPT/HCPCS: 36415; 93005; 80053; 84484; 85025; 72072; 72050; 73030; 99283; 96374; 96375; J2360; J1885

== ENCOUNTER → 2023-08-25 | Outpatient (CLI) | payer MEDICARE, OTHER ==
--- NOTE | 2023-08-26 08:40 | MM ---
Reason for Exam: Screening (asymptomatic). Last mammogram was performed 1 year(s) and 1 month(s) ago. Patient History: Menarche at age 14. First Full-Term at age 26. Left ovary removed at age 29. Right ovary removed at age 29. Hysterectomy at age 29. Postmenopausal. Patient has history of breast feeding. Patient used Hormonal Contraceptives for 2 years. Sister had breast cancer, age 60. Sister had breast cancer, age 58. Risk Values: Kavitha 5 year model risk: 6.0%. NCI Lifetime model risk: 15.8%. Prior Study Comparison: 03/10/2019 Bilateral Screening Mammogram, [facility]. 05/15/2020 Bilateral Screening Mammogram, [facility]. 07/01/2022 Bilateral MG 3D screening mammo w/cad, [facility]. Tissue Density: There are scattered fibroglandular densities. Findings: Analyzed By CAD. There is no suspicious group of microcalcifications or new suspicious mass in either breast. Benign-appearing desiccation within both breasts. Overall Assessment: Benign, BI-RAD 2 Management: Screening Mammogram of both breasts in 1 year. A clinical breast exam by your physician is recommended on an annual basis and results should be correlated with mammographic findings. Note on Kavitha scores and lifetime risk: 1. A Kavitha score greater than 3% is considered moderate risk. If this is the case, consider specialist referral to assess eligibility for a risk reducing agent. If overall lifetime risk for the development of breast cancer is 20% or higher, the patient may qualify for future screening with alternating mammogram and breast MRI. Electronically signed and approved by: Brent Jones D.O.
--- NOTE | 2023-08-26 11:22 | CA ---
Transthoracic Echo Report Name: Raina Vieyra Age: 72 Gender: F : 1950 Exam Date: 08/25/2023 13:02 Exam Location: [place] Ht (in): 64 Wt (lb): 175 Ordering Physician: Wilmar Calixto DO Attending/Referring Phys: Certified Ethical Hacker Lisbeth Akhtar [facility] Procedure CPT: Indications: I35.0 nonrheumatic aortic valve stenosis Cardiac Hx: Technical Quality: Fair Contrast 1: Total Dose (mL): Contrast 2: Total Dose (mL): MEASUREMENTS (Male / Female) Normal Values 2D ECHO LV Diastolic Diameter PLAX 4.6 cm 4.2 - 5.9 / 3.9 - 5.3 cm LV Systolic Diameter PLAX 2.8 cm IVS Diastolic Thickness 1.0 cm 0.6 - 1.0 / 0.6 - 0.9 cm LVPW Diastolic Thickness 1.0 cm 0.6 - 1.0 / 0.6 - 0.9 cm LV Relative Wall Thickness 0.5 LVOT Diameter 2.0 cm Aortic Root Diameter 3.0 cm Ascending Aorta Diameter 3.5 cm DOPPLER AV Peak Velocity 438.0 cm/s AV Peak Gradient 76.7 mmHg AV Mean Velocity 339.2 cm/s AV Mean Gradient 49.9 mmHg AV Velocity Time Integral 104.8 cm LVOT Peak Velocity 101.6 cm/s LVOT Peak Gradient 4.1 mmHg LVOT Velocity Time Integral 23.6 cm LVOT Stroke Volume 72.3 cm??? LVOT Stroke Volume Index 39.1 ml/m??? LVOT Cardiac Index 2562.1 cm???/min???m??? AV Area Cont Eq vti 0.7 cm??? AV Area Cont Eq pk 0.7 cm??? Mitral E Point Velocity 61.3 cm/s Mitral A Point Velocity 76.9 cm/s Mitral E to A Ratio 0.8 MV Deceleration Time 178.7 ms LV E' Lateral Velocity 6.5 cm/s Mitral E to LV E' Lateral Ratio 9.4 LV E' Septal Velocity 6.8 cm/s Mitral E to LV E' Septal Ratio 9.0 TR Peak Velocity 245.7 cm/s TR Peak Gradient 24.1 mmHg Right Atrial Pressure 3.0 mmHg Pulmonary Artery Systolic Pressu 27.1 mmHg Right Ventricular Systolic Press 27.1 mmHg FINDINGS Left Ventricle Mildly increased left ventricular wall thickness. Left ventricular cavity size normal. Normal Left ventricular size, wall thickness, systolic function with no obvious regional wall motion abnormalities. Normal Left ventricular diastolic filling pattern. Left ventricular ejection fraction is estimated at 55-60%. Right Ventricle Normal right ventricular size. Right Atrium Normal right atrial size. Left Atrium Severe left atrial dilatation. Mitral Valve Moderate mitral annular calcification. Moderate mitral regurgitation. Aortic Valve Trileaflet aortic valve. Thickened/calcified aortic valve cusps with reduced excursion. Severe aortic stenosis with a peak velocity of 4.37 m/s, peak gradient 76.73 mmHg, mean gradient 49.87 mmHg, and estimated aortic valve area of 0.7 cm???. Tricuspid Valve Structurally normal tricuspid valve. Mild tricuspid regurgitation. Pulmonic Valve Structurally normal pulmonic valve. Trace pulmonic regurgitation. Pericardium No pericardial effusion. Aorta Normal size aortic root and proximal ascending aorta. CONCLUSIONS 1. Normal left ventricular size and systolic function 2. Severe aortic stenosis with a mean gradient of 50 mmHg 3. Moderate mitral with mild tricuspid regurgitation Previewed by: Dr. Katherine Tijerina MD (Electronically Signed) Final Date: 26 August 2023 11:22
== END | disposition home or self-care (01) ==
LOC: RADECHMAIN 12:52
PROVIDERS: ATTEND Family Medicine
DX: Z12.31 Encounter for screening mammogram for malignant neoplasm of breast (principal); I35.0 Nonrheumatic aortic (valve) stenosis; Z78.0 Asymptomatic menopausal state; Z80.3 Family history of malignant neoplasm of breast
CPT/HCPCS: 77063; 77067; 93306

== ENCOUNTER 2023-10-12 10:32 | Day surgery (SDC) | payer MEDICARE, OTHER ==
[~2023-10-12 10:32] MED LIST: ALPRAZolam 0.25 MG TAB PO PRN; ALPRAZolam 0.5 MG TAB PO PRN; ASPIRIN 325 MG TAB PO STA; NITROGLYCERIN SL TABS 0.4 MG TAB SUBLINGUAL PRN; SODIUM CHLORIDE 0.9% 1,000 ML in EMPTY BAG 1 BAG IV SCH
[2023-10-12 11:05] VITALS: RESP 18; TEMP 98.2
[2023-10-12] MEDS ORDERED: LIDOCAINE 1% INJ 10MG/ML (20 ML MDV) ONE (11:40)
[2023-10-12] MEDS ORDERED: VERAPAMIL 2.5 MG/ML 2 ML AMP ONE (11:40)
[2023-10-12] MEDS ORDERED: IV FLUID CONTINUATION 1,000 ML IV ONE (11:49)
[2023-10-12] MEDS ORDERED: fentaNYL (PF) 50 MCG/ML 2 ML AMP ONE ×2 (11:57→12:12)
[2023-10-12] MEDS ORDERED: HEPARIN SODIUM 1,000 UN/ML (10ML VL) ONE (11:58)
[2023-10-12] MEDS: BENZOCAINE SPRAY 1 CAN MUCOUS MEM ONE ×2 (12:00→12:05)
[2023-10-12] MEDS ORDERED: MIDAZOLAM 2 MG/2 ML VIAL IVP ONE (12:09)
[2023-10-12] MEDS: fentaNYL (PF) 50 MCG/1 ML VIAL IVP ONE ×2 (12:09→12:12)
[2023-10-12] MEDS: MIDAZOLAM 2 MG/2 ML VIAL IVP ONE ×2 (12:12→12:14)
[2023-10-12] MEDS ORDERED: fentaNYL (PF) 50 MCG/1 ML VIAL IVP ONE (12:14)
--- NOTE | 2023-10-12 12:23 | P.TEE ---
Description of Procedure(s): Procedure performed: Transesophageal Echocardiogram with color flow doppler, pulsed wave doppler and continuous wave doppler, moderate conscious sedation Moderate conscious sedation: Moderate conscious sedation was supplied with direct supervision of myself using Versed and Fentanyl. Complications: none Indications: Severe symptomatic aortic stenosis PROCEDURE: After the risks, benefits and alternatives of the above mentioned procedure was explained in detail with the patient, informed consent was obtained. Patient was brought to the lab in a fasting state. Patient was given IV Versed and Fentanyl for sedation. The throat was sprayed with Hurricane to anesthetize the throat. A lubricated Omni probe was then introduced into the esophagus and stomach and multiple views were obtained. 2D echo with color flow doppler, pulsed wave doppler and continuous wave doppler was utilized. Agitated saline bubbles were injected to assess for any intra-atrial shunt. The probe was then removed. Patient tolerated the procedure well. Patient was transferred to the post procedure area in stable and satisfactory condition. FINDINGS: 1. The aortic valve is likely bicuspid with fusion of the right coronary cusp with severe aortic stenosis with aortic valve area 0.6 cm by planimetry. 2. The mitral valve appears be normal with trace mitral regurgitation. 3. Tricuspid valve to be normal. 4. The interatrial septum is intact. No evidence of PFO. 5. Left atrial appendage is free of clot. 6. Left ventricular ejection fraction 55%
[2023-10-12] MEDS ORDERED: LIDOCAINE 1% INJ 10MG/ML (20 ML MDV) SQ ONE (12:28)
[2023-10-12] MEDS ORDERED: VERAPAMIL SYRINGE (5 MG/10 ML) INTRAARTER ONE (12:30)
[2023-10-12] MEDS ORDERED: HEPARIN SODIUM 1,000 UN/ML (10ML VL) IV ONE (12:32)
[2023-10-12] MEDS ORDERED: IOPAMIDOL-370 100ML BTL INJ ONE (12:43)
--- NOTE | 2023-10-12 12:43 | P.CARDCATH ---
Description of Procedure: PROCEDURES PERFORMED: Bilateral coronary angiography, ultrasound guided arterial access INDICATION: Aortic stenosis CONSENT:I have discussed the risks, benefits and alternative therapies for the above-mentioned procedure and for both sedation/analgesia as well as necessary blood product administration, if indicated, as they pertain to this patient. The patient has indicated understanding and acceptance of the risks and procedures discussed. PROCEDURE: After the risks, benefits and alternatives of the above mentioned procedure explained in detail with the patient, informed consent was obtained. Patient was taken to the catheterization lab and prepped and draped in usual fashion. Ultrasound guidance was used to assess for arterial access. 1% lidocaine was used to anesthetize the right radial artery. A 6-Mongolian sheath was placed in the right radial artery using modified Seldinger technique and ultrasound guidance. Left coronary angiography was performed with a 5-Mongolian JL 3.5 catheter and right coronary angiography was performed with a 5-Mongolian FR5 catheter in various views. The right radial sheath was removed and a TR band was placed with hemostasis achieved. The patient tolerated the procedure well. Patient was transported back to the post catheterization holding area in stable condition. Conscious Sedation: Patient was monitored under the direct supervision of myself for conscious sedation using Versed and fentanyl for a total duration of 10 minutes HEMODYNAMICS: Medical: 130/60 SELECTIVE CORONARY ARTERIOGRAPHY: LEFT MAIN: The left main is a large caliber vessel which bifurcates into the LAD and circumflex. There is no significant stenosis. LEFT ANTERIOR DESCENDING CORONARY ARTERY: LAD is a large caliber vessel which reaches the apex however majority of apex supplied by PDA. There is no significant stenosis. LEFT CIRCUMFLEX CORONARY ARTERY: Left circumflex is a moderate caliber vessel without significant stenosis. RIGHT CORONARY ARTERY: The right coronary artery is a large caliber vessel which gives off a PDA and PLV branch and is the dominant vessel. There is no significant stenosis. FINAL IMPRESSION: 1. Normal coronary arteries as described above. PLAN: 1. Aggressive risk factor modification per most recent ACC/AHA guidelines. 2. Follow-up in the office in 1-2 weeks.
[2023-10-12 16:27] VITALS: BP 123/58; PULSE 72
== END 2023-10-12 16:29 | disposition home or self-care (01) ==
LOC: CATHCVL 10:32
PROVIDERS: ATTEND Internal Medicine
DX: I08.0 Rheumatic disorders of both mitral and aortic valves (principal); E78.5 Hyperlipidemia, unspecified; M19.90 Unspecified osteoarthritis, unspecified site; Z79.899 Other long term (current) drug therapy
CPT/HCPCS: 93312; 93320; 93325; 93454; 76937; C1769; C1894; J2250; J2001; J1644; Q9967; J3010

== ENCOUNTER → 2023-10-29 | Outpatient (CLI) | payer MEDICARE, OTHER ==
[2023-10-29 10:13] LABS: Basophils % (A) 0 %; Eosinophils # (A) 0.1 k/uL (0-0.7); Eosinophils % (A) 2 %; HCT 42.4 % (34.0-46.0); Lymphocytes # (A) 1.5 k/uL (1.0-4.8); Lymphocytes % (A) 27 %; MCH 29.3 pg (25.0-35.0); MCHC 33.1 g/dL (31.0-37.0); MCV 88.4 fL (80.0-100.0); Monocytes # (A) 0.4 k/uL (0-1.0); Monocytes % (A) 7 %; Neutrophils # (A) 3.2 k/uL (1.3-7.7); Neutrophils % (A) 61 %; Platelet Count 200 k/uL (150-450); RBC 4.79 m/uL (3.80-5.40); RDW 13.8 % (11.5-15.5); WBC 5.3 k/uL (3.8-10.6)
[2023-10-29 10:23] LABS: Partial Thromboplastin Time 24.3 sec (22.0-30.0); Prothrombin Time 10.8 sec (10.0-12.5)
[2023-10-29 10:39] LABS: ALT 13 U/L (4-34); AST 25 U/L (14-36); African American GFR (CKD) 85 (>60 ml/min/1.73 sqM); Albumin/Globulin Ratio 1.4; Alkaline Phosphatase 81 U/L (38-126); Anion Gap 8 mmol/L; Blood Urea Nitrogen 18 mg/dL (7-17); Calcium 9.3 mg/dL (8.4-10.2); Carbon Dioxide 29 mmol/L (22-30); Chloride 104 mmol/L (98-107); Globulin 2.8 g/dL; Glucose 92 mg/dL (74-99); Non-African American GFR(CKD) 74 (>60 ml/min/1.73 sqM); Potassium 3.8 mmol/L (3.5-5.1); Sodium 141 mmol/L (137-145); Total Bilirubin 0.7 mg/dL (0.2-1.3); Total Protein 6.8 g/dL (6.3-8.2)
[2023-10-29 10:45] LABS: NT-Pro-B-Type Natriuretic Pept 784 pg/mL
--- NOTE | 2023-10-29 12:13 | US ---
EXAMINATION TYPE: US carotid duplex BILAT DATE OF EXAM: 10/29/2023 COMPARISON: 2020 CLINICAL INDICATION: Female, 73 years old with history of I35.1 NONRHEUMATIC AORTIC (VALVE) INSUFFICI ENCY; TECHNIQUE: Carotid duplex ultrasound examination. Indirect Doppler criteria was utilized. FINDINGS: EXAM MEASUREMENTS: RIGHT: Peak Systolic Velocity (PSV) cm/sec ----- Right CCA: 64.8 ----- Right ICA: 109.9 ----- Right ECA: 79.3 ICA/CCA ratio: 1.7 RIGHT: End Diastole cm/sec ----- Right CCA: 21.2 ----- Right ICA: 31.4 ----- Right ECA: 18.3 LEFT: Peak Systolic Velocity (PSV) cm/sec ----- Left CCA: 64.8 ----- Left ICA: 93.9 ----- Left ECA: 59.0 ICA/CCA ratio: 1.4 LEFT: End Diastole cm/sec ----- Left CCA: 28.5 ----- Left ICA: 35.7 ----- Left ECA: 12.5 VERTEBRALS (direction of flow): Right Vertebral: Antegrade Left Vertebral: Antegrade Rhythm: Normal [employer] NOTES: No significant stenosis seen IMPRESSION: 1. No suspicious stenosis based on velocities. Criteria for Assigning % of Stenosis / Diameter reduction (Estimation based on the indirect measurements of the internal carotid artery velocities (ICA PSV). 1. Normal (no stenosis)=ICA PSV < 125 cm/s: ratio < 2.0: ICA EDV<40 cm/s. 2. Less than 50% stenosis=ICA PSV < 125 cm/s: ratio < 2.0: ICA EDV<40 cm/s. 3. 50 to 69% stenosis=ICA PSV of 125 to 230 cm/s: ration 2.0 ? 4.0: ICA EDV 40-100 cm/s. 4. Greater than 70% stenosis to near occlusion= ICA PSV > 230 cm/s: ratio > 4.0: ICA EDV > 100 cm/s. 5. Near occlusion= ICA PSV velocities may be low or undetectable: variable ratio and ICA EDV. 6. Total occlusion=unable to detect flow.
[2023-10-29 12:14] LABS: Appearance,Urine Clear (Clear); Bacteria,Urine Rare /hpf; Bilirubin,Urine Negative (Negative); Blood,Urine Negative (Negative); Calcium Oxalate Crystals,Urine Occasional /hpf; Color,Urine Yellow; Glucose,Urine (UA) Negative (Negative); Ketones,Urine Negative (Negative); Leukocyte Esterase,Urine Large (Negative); Mucus,Urine Few /hpf; Nitrite,Urine Negative (Negative); Protein,Urine Negative (Negative); RBC,Urine 3 /hpf (0-5); Specific Gravity,Urine 1.028 (1.001-1.035); Squamous Epithelial Cell,Urine 3 /hpf (0-4); Urobilinogen,Urine <2.0 mg/dL (<2.0); WBC,Urine 2 /hpf (0-5)
--- NOTE | 2023-10-29 12:41 | CT ---
EXAMINATION TYPE: CT TAVR Planning DATE OF EXAM: 10/29/2023 HISTORY: NONRHEUMATIC AORTIC (VALVE) INSUFFICIENCY TAVR PLANNING CT DLP: 1684.30 mGycm Automated Exposure Control for Dose Reduction was Utilized. CONTRAST: CT scan of the chest, abdomen and pelvis is performed with IV Contrast, patient injected with 130ml m L of Isovue 300. COMPARISON: None TECHNIQUE: Helical imaging obtained through the chest, abdomen and pelvis during arterial phase hortencia sawyer administration of radiographic contrast intravenously. FINDINGS: See report from [employer] regarding preprocedural planning CHEST: Lower Neck and Thyroid: No significant findings Lungs: No significant findings Central Airway: No significant findings Pleura: No significant findings Pulmonary Arteries: No significant findings Heart and Pericardium: Severe Calcified thickening of the aortic leaflets is noted. Lymph Nodes: No significant findings Mediastinum & Esophagus: Surgical changes from gastric sleeve with moderate to severe wall thickening of the distal esophagus. Correlate clinically for possible reflux esophagitis and/or other etiology ABDOMEN/PELVIS: Please note arterial phase of the imaging limits detailed evaluation of the solid abdominal organs. Liver: No significant findings Spleen: No significant findings Kidneys: Parapelvic cysts bilaterally which are greater in size in the left kidney. Adrenal Glands: No significant findings Pancreas: No significant findings Gallbladder: No significant findings Bowel and Mesentery: Sigmoid colonic diverticulosis Lymph Nodes: No significant findings Urinary Bladder: No significant findings Pelvic Organs: Uterus is surgically absent Other: Scoliotic curvature in the lumbar spine. Multilevel spurring in the thoracolumbar spine. Vacuu m disc phenomenon and disc space narrowing at L3-L4 and L4-L5 levels. Most prominent spinal canal eff acement and/or stenosis at L4-L5 level due to facet arthropathy and ligamentum flavum hypertrophy is seen near axial image 110. IMPRESSION: Incidental findings noted as detailed above.
[2023-10-29 16:13] LABS: Chol/HDL Ratio 2.26 Ratio; LDL Cholesterol,Calculated 101.8 mg/dL (0.0-131.0); VLDL Calculation 12.64 mg/dL (5.00-40.00)
[2023-10-29 16:50] LABS: Hepatitis A Antibody IgM Nonreactive; Hepatitis B Core IgM Nonreactive; Hepatitis B Surface Antigen Nonreactive; Hepatitis C IgG Antibody Nonreactive
== END | disposition home or self-care (01) ==
LOC: LABWHC1 09:26
PROVIDERS: ATTEND Thoracic Surgery (Cardiothoracic Vascular Surgery)
DX: Z01.818 Encounter for other preprocedural examination (principal); I35.1 Nonrheumatic aortic (valve) insufficiency; I35.0 Nonrheumatic aortic (valve) stenosis; E87.8 Other disorders of electrolyte and fluid balance, not elsewhere classified; E07.9 Disorder of thyroid, unspecified; E11.9 Type 2 diabetes mellitus without complications; N28.9 Disorder of kidney and ureter, unspecified; E78.5 Hyperlipidemia, unspecified; Z79.01 Long term (current) use of anticoagulants; R35.0 Frequency of micturition; R58 Hemorrhage, not elsewhere classified; Z79.899 Other long term (current) drug therapy
CPT/HCPCS: 83880; 80061; 80053; 80074; 84443; 83735; 85025; 85610; 85730; 81001; 87086; 83036; 93880; 71275; 36415 ×2; 74174; Q9967

== ENCOUNTER → 2024-01-11 | Outpatient (CLI) | payer MEDICARE, OTHER ==
--- NOTE | 2024-01-11 15:18 | XR ---
EXAMINATION TYPE: XR chest 2V DATE OF EXAM: 01/11/2024 COMPARISON: NONE TECHNIQUE: PA and lateral views submitted. HISTORY: Preop FINDINGS: The lungs are clear and there is no pneumothorax, pleural effusion, or focal pneumonia. Heart size normal and no overt failure. Osseous structures demonstrate hypertrophic and degenerative changes of the spine. Mild hyperexpansion compatible COPD. Mild atherosclerotic change mild diffuse osteopenia. IMPRESSION: 1. No acute process.
== END | disposition home or self-care (01) ==
LOC: RADXRMAIN 14:53
PROVIDERS: ATTEND Surgery
DX: I35.1 Nonrheumatic aortic (valve) insufficiency (principal)
CPT/HCPCS: 71046

== ENCOUNTER → 2024-01-11 | Outpatient (CLI) | payer MEDICARE, OTHER ==
[2024-01-11 14:18] LABS: Partial Thromboplastin Time 23.7 sec (22.0-30.0); Prothrombin Time 10.7 sec (10.0-12.5)
--- NOTE | 2024-01-11 16:12 | US ---
EXAMINATION TYPE: US vein mapping BILAT DATE OF EXAM: 01/11/2024 2:48 PM COMPARISON: NONE CLINICAL INDICATION: Female, 73 years old with history of OPEN HEART; SIDE PERFORMED: Bilateral TECHNIQUE: Lower extremity saphenous vein is examined and measured utilizing real time linear array sonography. DUPLEX FINDINGS: Greater Saphenous: Color flow seen Lesser Saphenous: Color flow seen Measurements in mm: Right Greater Saphenous: Groin: 7.0 x 7.1 mm High Thigh: 4.6 x 4.4 mm Mid Thigh: 2.5 x 2.5 mm Above Knee: 2.3 x 1.9 mm Knee: 1.7 x 1.5 mm Below Knee: 1.8 x 1.5 mm Mid Calf: 1.6 x 1.6 mm At Ankle: too small to visual Left Greater Saphenous: Groin: 6.3 x 6.0 mm High Thigh: 5.1 x 3.9 mm Mid Thigh: 2.6 x 2.4 mm Above Knee: 2.8 x 2.5 mm Knee: 2.6 x 2.1 mm Below Knee: 1.9 x 1.4 mm Mid Calf: 1.3 x 1.2 mm At Ankle: 1.7 x 1.2 mm IMPRESSION: 1. Bilateral GSV measurements listed above. 2. Performing surgeon to determine viability as conduit.
[2024-01-11 20:10] LABS: Appearance,Urine Clear (Clear); Bilirubin,Urine Negative (Negative); Blood,Urine Negative (Negative); Color,Urine Yellow (Yellow); Ketones,Urine Negative (Negative); Nitrite,Urine Negative (Negative); Specific Gravity,Urine 1.022 (1.001-1.030); Urobilinogen,Urine 0.2 E.U./DL
[2024-01-11 20:34] LABS: HCT 41.1 % (37.2-46.3); HGB 13.3 g/dL (12.0-15.0); MCH 28.9 pg (27.0-32.0); MCHC 32.4 g/dL (32.0-37.0); MCV 89.2 FL (80.0-97.0); Mean Platelet Volume 11.1 FL (9.5-12.2); NRBC Per 100 WBC 0 X 10*3/uL (0.00-0.01); Platelet Count 217 X 10*3/uL (140-440); RBC 4.61 X 10*6/uL (4.10-5.20); RDW 13.8 % (11.5-14.5); WBC 4.86 X 10*3/uL (4.50-10.00)
[2024-01-11 20:36] LABS: Bacteria,Urine None Seen (None Seen); Calcium Oxalate Crystals,Urine Present (None Seen)
[2024-01-11 21:57] LABS: ALT 12 U/L (8-44); AST 21 U/L (13-35); Albumin 4.1 g/dL (3.8-4.9); Albumin/Globulin Ratio 1.78 Ratio (1.60-3.17); Alkaline Phosphatase 79 U/L (41-126); BUN/Creat Ratio 21.75 Ratio (12.00-20.00); Blood Urea Nitrogen 17.4 mg/dL (9.0-27.0); Calcium 9.5 mg/dL (8.7-10.3); Carbon Dioxide 25.6 mmol/L (21.6-31.8); Chloride 106 mmol/L (96-109); Globulin 2.3 g/dL (1.6-3.3); Glucose 84 mg/dL (70-110); Magnesium 1.9 mg/dL (1.5-2.4); Sodium 142 mmol/L (135-145); Total Bilirubin 0.5 mg/dL (0.3-1.2); Total Protein 6.4 g/dL (6.2-8.2)
== END | disposition home or self-care (01) ==
LOC: RADUSWWP 12:52
PROVIDERS: ATTEND Surgery
DX: I35.1 Nonrheumatic aortic (valve) insufficiency (principal)
CPT/HCPCS: 80053; 81001; 83735; 85027; 85610; 85730; 86850; 86900; 86901; 87070; 87086; 93005; 93970

== ENCOUNTER 2024-01-22 05:35 | Inpatient (IN) | payer MEDICARE, OTHER ==
[2024-01-11 14:18] LABS: Partial Thromboplastin Time 23.7 sec (22.0-30.0); Prothrombin Time 10.7 sec (10.0-12.5)
[2024-01-11 20:10] LABS: Appearance,Urine Clear (Clear); Bilirubin,Urine Negative (Negative); Blood,Urine Negative (Negative); Color,Urine Yellow (Yellow); Ketones,Urine Negative (Negative); Nitrite,Urine Negative (Negative); Specific Gravity,Urine 1.022 (1.001-1.030); Urobilinogen,Urine 0.2 E.U./DL
[2024-01-11 20:34] LABS: HCT 41.1 % (37.2-46.3); HGB 13.3 g/dL (12.0-15.0); MCH 28.9 pg (27.0-32.0); MCHC 32.4 g/dL (32.0-37.0); MCV 89.2 FL (80.0-97.0); Mean Platelet Volume 11.1 FL (9.5-12.2); NRBC Per 100 WBC 0 X 10*3/uL (0.00-0.01); Platelet Count 217 X 10*3/uL (140-440); RBC 4.61 X 10*6/uL (4.10-5.20); RDW 13.8 % (11.5-14.5); WBC 4.86 X 10*3/uL (4.50-10.00)
[2024-01-11 20:36] LABS: Bacteria,Urine None Seen (None Seen); Calcium Oxalate Crystals,Urine Present (None Seen)
[2024-01-11 21:57] LABS: ALT 12 U/L (8-44); AST 21 U/L (13-35); Albumin 4.1 g/dL (3.8-4.9); Albumin/Globulin Ratio 1.78 Ratio (1.60-3.17); Alkaline Phosphatase 79 U/L (41-126); BUN/Creat Ratio 21.75 Ratio (12.00-20.00); Blood Urea Nitrogen 17.4 mg/dL (9.0-27.0); Calcium 9.5 mg/dL (8.7-10.3); Carbon Dioxide 25.6 mmol/L (21.6-31.8); Chloride 106 mmol/L (96-109); Globulin 2.3 g/dL (1.6-3.3); Glucose 84 mg/dL (70-110); Magnesium 1.9 mg/dL (1.5-2.4); Sodium 142 mmol/L (135-145); Total Bilirubin 0.5 mg/dL (0.3-1.2); Total Protein 6.4 g/dL (6.2-8.2)
[~2024-01-22 05:35] MED LIST changes: +ALBUMIN HUMAN 25% 50 ML IV ONE; +ALBUMIN HUMAN 5% 500 ML IVPB ONE; -ALPRAZolam 0.25 MG TAB PO PRN; -ALPRAZolam 0.5 MG TAB PO PRN; +ASPIRIN 325 MG TAB PO ONE; -ASPIRIN 325 MG TAB PO STA; +CALCIUM CHLORIDE 100 MG/ML 10 ML SYRINGE IV ONE; +CHLORHEXIDINE GLUCONATE 15 ML CUP MUCOUS MEM ONE; +CLEVIDIPINE BUTYRATE 25 MG in EMPTY BAG 1 BAG IV ONE; +ELECTROLYTE-A SOLUTION 1,000 ML with POTASSIUM CHLORIDE 100 MEQ, MAGNESIUM SULFATE 16 M... IV ONE; +ELECTROLYTE-A SOLUTION 1,000 ML with POTASSIUM CHLORIDE 40 MEQ, MAGNESIUM SULFATE 16 ME... IV ONE; +HEPARIN SODIUM 1,000 UN/ML (10ML VL) IV ONE; +INSULIN REGULAR 100 UNIT in SODIUM CHLORIDE 0.9% 100 ML IV ONE; +MAGNESIUM SULFATE 16.24 MEQ in EMPTY SYRINGE 1 SYR IV ONE; +MANNITOL 25% 12.5 GM/50 ML VIAL IV ONE; +NITROGLYCERIN SL TABS 0.4 MG TAB SUBLINGUAL ONE; -NITROGLYCERIN SL TABS 0.4 MG TAB SUBLINGUAL PRN; +NITROGLYCERIN-D5W PMX 25 MG/250 ML BTL IV ONE; +NITROGLYCERIN-D5W PMX 50 MG in DEXTROSE/WATER 1 250ML.BAG IV ONE; +NOREPINEPHRINE 4 MG in SODIUM CHLORIDE 0.9% 250 ML IV ONE; +PAPAVERINE 360 MG in SODIUM CHLORIDE 0.9% 90 ML IV ONE; +PHENYLEPHRINE 10 MG/ML VIAL IV ONE; +PHENYLEPHRINE 40 MG in SODIUM CHLORIDE 0.9% 250 ML IV ONE; +PROTAMINE SULFATE 10 MG/ML 25 ML VIAL IV ONE; +PROTAMINE SULFATE 250 MG in EMPTY BAG 1 BAG IV ONE; +SODIUM BICARB 8.4% 50 ML SYR (1 MEQ/ML) IV ONE; +SODIUM CHLORIDE 0.9% 1,000 ML IV ONE; -SODIUM CHLORIDE 0.9% 1,000 ML in EMPTY BAG 1 BAG IV SCH; +TRANEXAMIC ACID 2,000 MG in SODIUM CHLORIDE 0.9% 80 ML IV ONE; +propofoL 1,000 MG/100 ML VIAL IV ONE
[2024-01-22] MEDS: LACTATED RINGERS 1,000 ML IV ONE (05:52)
[2024-01-22 06:18] LABS: Glucose,Whole Blood 91 mg/dL (70-110)
[2024-01-22] MEDS: ATORVASTATIN 10 MG TAB PO ONE (06:33)
[2024-01-22] MEDS: METOPROLOL TARTRATE 12.5 MG TAB PO ONE (06:33)
[2024-01-22] MEDS ORDERED: MUPIROCIN 2% OINT 22 GM TUBE NASAL ONE (07:00)
[2024-01-22] MEDS ORDERED: LIDOCAINE 2% SYG (PF) 100 MG/5 ML ONE (07:33)
[2024-01-22] MEDS ORDERED: PROTAMINE SULFATE 10 MG/ML 25 ML VIAL IV ONE (07:33)
[2024-01-22] MEDS ORDERED: SUCCINYLCHOLINE CHLORIDE 200 MG/10 ML VIAL IV ONE (07:33)
[2024-01-22] MEDS ORDERED: HEPARIN SODIUM,PORCINE 10,000 UNIT/ML 1 ML VIAL ONE (07:33)
[2024-01-22] MEDS ORDERED: HEPARIN SODIUM,PORCINE 5,000 UNIT/ML 1 ML VIAL ONE (07:33)
[2024-01-22] MEDS ORDERED: MIDAZOLAM HCL 10 MG/10 ML VIAL ONE (07:33)
[2024-01-22] MEDS ORDERED: fentaNYL (PF) 50 MCG/ML 50 ML VIAL ONE (07:33)
[2024-01-22] MEDS ORDERED: VECURONIUM 10 MG VIAL IV ONE (07:33)
[2024-01-22] MEDS ORDERED: TRANEXAMIC 1,000 MG/100ML-NACL PREMIX BAG ONE (07:33)
[2024-01-22] MEDS ORDERED: PROPOFOL 10 MG/ML 20 ML VIAL IV ONE (07:33)
[2024-01-22] MEDS ORDERED: INSULIN REGULAR 100 UNIT/ML VIAL (IV) ONE (07:33)
[2024-01-22] MEDS ORDERED: CALCIUM CHLORIDE 100 MG/ML 10 ML SYRINGE ONE (07:33)
[2024-01-22] MEDS ORDERED: ALBUMIN HUMAN 5% (25gm) 500 ML VIAL IVPB ONE (07:33)
--- NOTE | 2024-01-22 07:54 | P.ANPRN ---
Procedure Note - Anesthesia - Invasive Line Right Central Line Time Out Performed: Yes Date of Procedure: 01/22/24 Time of Procedure: 07:00 Location of Patient: PreOp Preparation: Sterile Prep, Sterile Dressing Central Line Location: Internal Jugular [place] U[place] Line Location: Internal Jugular Ultrasound Used: Yes Purpose - Visualization and Identification of Vasculature: Yes Image Stored and Saved: Yes Narrative: Invasive line placement per sterile protocol utilized. [place] U[place]ma catheter advanced to 48 cm with appropriate PA wave form
[2024-01-22 08:46] LABS: ABG Base Excess 0.6 mmol/L; ABG Glucose Whole Blood 92 mg/dL (75-99); ABG HCO3 25 mmol/L (21-25); ABG Hematocrit 33 % (34.0-46.0); ABG Ionized Calcium 4.7 mg/dL (4.5-5.3); ABG Lactic Acid Whole Blood 0.8 mmol/L (0.5-1.6); ABG Oxygen Saturation >99.4 % (94-97); ABG PCO2 41 mmHg (35-45); ABG PO2 252 mmHg (83-108); ABG Potassium Whole Blood 3.6 mmol/L (3.4-4.5); ABG Sodium Whole Blood 141 mmol/L (135-146); Allen Test Performed? Yes
[2024-01-22] MEDS: ceFAZolin 1,000 MG in SODIUM CHLORIDE 0.9% IRRIGATIO 1,000 ML IRRIGATION ONE (09:07)
[2024-01-22] MEDS: HEPARIN SODIUM,PORCINE (1 ML) 5,000 UNIT in SODIUM CHLORIDE 0.9% 500 ML 500 ML IV ONE (09:07)
[2024-01-22 09:21] LABS: ABG Base Excess 0.5 mmol/L; ABG Glucose Whole Blood 118 mg/dL (75-99); ABG HCO3 26 mmol/L (21-25); ABG Hematocrit 32 % (34.0-46.0); ABG Ionized Calcium 4.7 mg/dL (4.5-5.3); ABG Lactic Acid Whole Blood 0.9 mmol/L (0.5-1.6); ABG Oxygen Saturation >99.4 % (94-97); ABG PCO2 42 mmHg (35-45); ABG PH 7.39 (7.35-7.45); ABG PO2 259 mmHg (83-108); ABG Potassium Whole Blood 3.5 mmol/L (3.4-4.5); ABG Sodium Whole Blood 140 mmol/L (135-146); Allen Test Performed? Yes
[2024-01-22 09:54] LABS: ABG Base Excess 2.6 mmol/L; ABG Glucose Whole Blood 128 mg/dL (75-99); ABG HCO3 26 mmol/L (21-25); ABG Hematocrit 26 % (34.0-46.0); ABG Ionized Calcium 3.9 mg/dL (4.5-5.3); ABG Lactic Acid Whole Blood 0.9 mmol/L (0.5-1.6); ABG Oxygen Saturation >99.4 % (94-97); ABG PCO2 35 mmHg (35-45); ABG PH 7.48 (7.35-7.45); ABG Potassium Whole Blood 5.2 mmol/L (3.4-4.5); ABG Sodium Whole Blood 141 mmol/L (135-146); Allen Test Performed? Yes
[2024-01-22 10:25] LABS: ABG Base Excess 2.3 mmol/L; ABG Glucose Whole Blood 142 mg/dL (75-99); ABG HCO3 27 mmol/L (21-25); ABG Hematocrit 27 % (34.0-46.0); ABG Ionized Calcium 4.2 mg/dL (4.5-5.3); ABG Lactic Acid Whole Blood 0.9 mmol/L (0.5-1.6); ABG Oxygen Saturation >99.4 % (94-97); ABG PCO2 41 mmHg (35-45); ABG PH 7.42 (7.35-7.45); ABG Potassium Whole Blood 4.2 mmol/L (3.4-4.5); ABG Sodium Whole Blood 140 mmol/L (135-146); Allen Test Performed? Yes
[2024-01-22 10:50] LABS: ABG Base Excess 1.5 mmol/L; ABG Glucose Whole Blood 129 mg/dL (75-99); ABG HCO3 25 mmol/L (21-25); ABG Hematocrit 29 % (34.0-46.0); ABG Ionized Calcium 4.2 mg/dL (4.5-5.3); ABG Lactic Acid Whole Blood 1.2 mmol/L (0.5-1.6); ABG Oxygen Saturation >99.4 % (94-97); ABG PCO2 34 mmHg (35-45); ABG PH 7.47 (7.35-7.45); ABG PO2 414 mmHg (83-108); ABG Sodium Whole Blood 141 mmol/L (135-146); Allen Test Performed? Yes
--- NOTE | 2024-01-22 11:34 | P.ANPRN ---
Procedure Note - Anesthesia - KAROL Intraop Pre Bypass KAROL Intraop - Anesthesia Indication: Aortic Valve Replacement Date of Procedure: 01/22/24 Pre-operative Diagnosis: Severe Aortic Stenosis, Bicuspid Aortic Valve Surgeon: Nadeem Carlisle Left Ventricle: LVEF 50-55% Ejection Fraction: Normal Regional Wall Motion Abnormalities: None Left Ventricle Hypertrophy: No Right Ventricle: Normal function R. Ventricle Function: Normal Aortic Valve: Bicuspid Aortic Valve Anatomy: Other (Bicuspid) Aortic Stenosis: Severe Aortic Regurgitation: None Other Findings: Severely calcified Mitral Valve: LVOT 19mm Aortic Annulus 20mm Aortic Root 3.6cm Mitral Stenosis: None Mitral Regurgitation: Mild Tricuspid Stenosis: None Tricuspid Regurgitation: Trace Pulmonic Stenosis: None Pulmonic Regurgitation: None R. Atrial Dilation: No R. Atrial PFO: No L. Atrial Dilation: No Aortic Dissection: No Aortic Calcification: Mild Plural Effusion: None - KAROL Intraop Post Bypass KAROL Intraop Post Bypass Procedure Performed: Aortic Valve replacement Left Ventricle: Normal function with no air in the apex prior to decannulation Ejection Fraction: Normal Regional Wall Motion Abnormalities: None R. Ventricle Function: Normal Aortic Valve: Bioprosthetic valve visualized without any PVL or Aortic regurgitation Mitral Valve: Trace MR Tricuspid: Unchanged Pulmonic: Unchanged Aortic Dissection: No
[2024-01-22 12:12] LABS: ABG PO2 >420 mmHg (83-108)
[2024-01-22 12:13] LABS: ABG PO2 >420 mmHg (83-108)
[2024-01-22] MEDS ORDERED: IPRATROPIUM-ALBUTEROL 3 ML NEB INHALATION PRN (12:14)
[2024-01-22] MEDS ORDERED: Potassium Replacement Protocol 1 EACH MISC MISCELLANE PRN (12:14)
[2024-01-22] MEDS ORDERED: AMIODARONE 360 MG in DEXTROSE 5% IN WATER 200 ML IV PRN (12:14)
[2024-01-22] MEDS ORDERED: hydrALAZINE HCL 20 MG/ML 1 ML VIAL IVP PRN (12:14)
[2024-01-22] MEDS ORDERED: DEXTROSE 50% SYRINGE 50 ML IVP PRN ×2 (12:14)
[2024-01-22] MEDS ORDERED: DEXTROSE 5% IN WATER 100 ML with AMIODARONE 150 MG IV PRN (12:14)
[2024-01-22] MEDS ORDERED: Magnesium Replacement Protocol 1 EACH MISC MISCELLANE PRN (12:14)
[2024-01-22] MEDS ORDERED: AMIODARONE 450 MG in DEXTROSE 5% IN WATER 250 ML IV PRN (12:14)
[2024-01-22] MEDS ORDERED: CALCIUM GLUCONATE IN NACL 2 GM in SALINE 1 100ML.BAG IVPB PRN (12:14)
[2024-01-22] MEDS ORDERED: BENZOCAINE/MENTHOL LOZENG 1 EACH LOZENGE MUCOUS MEM PRN (12:14)
[2024-01-22] MEDS: LACTATED RINGERS 1,000 ML IV SCH (12:30)
[2024-01-22 12:36] LABS: Glucose,Whole Blood 134 mg/dL (70-110)
[2024-01-22] MEDS ORDERED: DEXMEDETOMIDINE/0.9% NACL(PMX) 400 MCG in EMPTY BAG 1 BAG IV SCH (12:45)
[2024-01-22 12:52] LABS: ABG Base Excess 0.3 mmol/L; ABG HCO3 25 mmol/L (21-25); ABG PCO2 41 mmHg (35-45); ABG PO2 >400 mmHg (83-108); ABG TCO2 26 mmol/L (19-24); Allen Test Performed? Yes
[2024-01-22 12:56] LABS: Basophils % (A) 0 %; Eosinophils # (A) 0.1 k/uL (0-0.7); Eosinophils % (A) 0 %; HCT 30.6 % (34.0-46.0); Lymphocytes # (A) 0.9 k/uL (1.0-4.8); Lymphocytes % (A) 8 %; MCH 28.9 pg (25.0-35.0); MCHC 32.8 g/dL (31.0-37.0); MCV 88.2 fL (80.0-100.0); Mean Platelet Volume 8.5; Monocytes # (A) 0.6 k/uL (0-1.0); Monocytes % (A) 6 %; Neutrophils # (A) 9.9 k/uL (1.3-7.7); Neutrophils % (A) 86 %; Platelet Count 119 k/uL (150-450); RBC 3.47 m/uL (3.80-5.40); RDW 13.6 % (11.5-15.5); WBC 11.5 k/uL (3.8-10.6)
--- NOTE | 2024-01-22 12:57 | XR ---
EXAMINATION TYPE: XR chest 1V portable DATE OF EXAM: 01/22/2024 COMPARISON: 01/11/2024 HISTORY: Postop cardiac surgery TECHNIQUE: Single frontal view of the chest is obtained. FINDINGS: Post median sternotomy with atrial appendage clips and prosthetic aortic valve. Epicardial lead is incidentally noted. There is an ET tube approximately 3.5 cm above the narciso and an NG tube is seen extending into the a bdomen. Bilateral chest tubes seen in position. There is a area of consolidation involving the left midlung a nd left lower lobe. Trace amount of pleural fluid on the right. There are bilateral chest tubes. [place] -Uzma catheter is seen with the tip overlying the pulmonary proximal outflow tract. There is a tiny less than 5% right apical pneumothorax. IMPRESSION: 1. Postoperative change with areas of consolidation favored to represent postoperative atelectasis. 2. ET and NG tube appear in good position. 3. Tiny less than 5% right apical pneumothorax.
[2024-01-22 12:59] LABS: Ionized Calcium 4.6 mg/dL (4.5-5.3)
[2024-01-22] MEDS: IPRATROPIUM-ALBUTEROL 3 ML NEB INHALATION SCH ×2 (12:59→21:11)
[2024-01-22 13:05] LABS: INR 1.3 (<1.2); Partial Thromboplastin Time 30.7 sec (22.0-30.0); Prothrombin Time 13.8 sec (10.0-12.5)
[2024-01-22 13:17] LABS: Glucose,Whole Blood 143 mg/dL (70-110)
[2024-01-22 13:19] LABS: ALT 16 U/L (4-34); AST 53 U/L (14-36); African American GFR (CKD) >90 (>60 ml/min/1.73 sqM); Albumin 2.8 g/dL (3.5-5.0); Alkaline Phosphatase 48 U/L (38-126); Anion Gap 4 mmol/L; Blood Urea Nitrogen 12 mg/dL (7-17); Calcium 7.9 mg/dL (8.4-10.2); Carbon Dioxide 23 mmol/L (22-30); Chloride 110 mmol/L (98-107); Glucose 123 mg/dL (74-99); Magnesium 2.7 mg/dL (1.6-2.3); Non-African American GFR(CKD) >90 (>60 ml/min/1.73 sqM); Potassium 4.1 mmol/L (3.5-5.1); Sodium 137 mmol/L (137-145); Total Bilirubin 0.8 mg/dL (0.2-1.3); Total Protein 4.8 g/dL (6.3-8.2)
[2024-01-22] MEDS: INSULIN REGULAR 100 UNIT in SODIUM CHLORIDE 0.9% 100 ML IV SCH (13:19)
[2024-01-22] MEDS: ACETAMINOPHEN IV (For NPO) 1,000 MG in EMPTY BAG 1 BAG IVPB SCH (13:50)
[2024-01-22 14:10] LABS: Glucose,Whole Blood 130 mg/dL (70-110)
--- NOTE | 2024-01-22 15:07 | P.CONS ---
History of Present Illness - Reason for Consult Consult date: 01/22/24 Medical management Requesting physician: Nadeem Carlisle - Chief Complaint Aortic valve surgery - History of Present Illness This is a 73-year-old patient, follows Dr. Calixto. Patient recently underwent a cardiac catheterization that showed normal coronaries. Patient has known severe arctic stenosis with a KAROL showing area of 0.6 cm. Bicuspid arctic valve. Patient today underwent aortic valve repair. Formal note is pending. Patient received albumin and Cell Saver during procedure. Postprocedure in the ICU. Intubated. On propofol and insulin. On the ventilator. Patient has 1 left 1 right pleural chest tube and 1 mediastinal chest tube. FiO2 60%. Review of systems: Patient intubated Social history: No smoking no alcohol Physical examination: VITAL SIGNS: 97.5, 79, 20, 102/48, 100% on the ventilator GENERAL: BMI 29.9, laying in bed sedated.. 1 right 1 left pleural chest tube and 1 mediastinal chest tube EYES: Pupils equal. Conjunctiva marvin l. HEENT: [External appearance of nose and ears normal, oral cavity endotracheal tube NECK: JVD unable to assess; masses not palpable. HEART: First and second heart sounds are normal; no edema. LUNGS: Respiratory rate increased al; decreased breath sounds n. ABDOMEN: Soft, nontender, liver spleen not palpable, no masses palpable. PSYCH: Alert and oriented x3; mood and affect marvin l. MUSCULOSKELETAL:No Clubbing/cyanosis;muscles-grossly intact. NEUROLOGICAL: Cranial nerves grossly intact; no facial asymmetry, power and sensation grossly intact. LYMPHATICS: No lymph nodes palpable in the axilla and neck INVESTIGATIONS, reviewed in the clinical context: January 22, 2024: White count 9.5 hemoglobin 10 platelets 119 sodium 137 potassium 4.1 creatinine 0.51 albumin 2.8 Previous labs: White count 4.8 hemoglobin 13.3 platelets 217 albumin 4.1 Cardiac catheterization: Normal coronaries KAROL: Bicuspid aortic valve. Area 0.6 cm Assessment plan: -Status post aortic valve repair for severe arctic stenosis -Acute ventilator support, postanesthesia for surgery Patient is currently on 50% FiO2. -Sedation with IV propofol -Acute postprocedure blood loss anemia expected from surgery Follow H&H -Acute dilutional postprocedure thrombocytopenia -Primary osteoarthritis -Kidney stones, asymptomatic -History of gastric sleeve surgery Currently no family at the bedside. Care was discussed with nurse at the bedside. Thank you Dr. Carlisle Past Medical History Past Medical History: Osteoarthritis (OA) Additional Past Medical History / Comment(s): heart murmur,Aortic stenosis, Covid Aug 2023,kidney stones History of Any Multi-Drug Resistant Organisms: None Reported Past Surgical History: Bariatric Surgery, Cholecystectomy, Hysterectomy, Joint Replacement Additional Past Surgical History / Comment(s): gastric sleeve surgery, rt knee replacement,keely cataracts,partial hyst Past Anesthesia/Blood Transfusion Reactions: No Reported Reaction Additional Past Anesthesia/Blood Transfusion Reaction / Comm: no hx blood transfusion Past Psychological History: No Psychological Hx Reported Smoking Status: Never smoker Past Alcohol Use History: None Reported Past Drug Use History: None Reported - Past Family History Father Additional Family Medical History / Comment(s): aortic valve replaced Sister(s) Additional Family Medical History / Comment(s): aortic valve replaced Medications and Allergies Home Medications Medication Instructions Recorded Confirmed Type Cholecalciferol [Vitamin D3] 1,000 unit PO DAILY 11/29/17 01/22/24 History Vitamin B Complex 1 cap PO DAILY 11/29/17 01/22/24 History traMADol HCL [Ultram] 50 mg PO DAILY PRN 11/29/17 01/22/24 History Aspirin 81 mg PO DAILY 10/12/23 01/22/24 History Acetaminophen [Tylenol Extra 500 mg PO Q8H PRN 01/11/24 01/22/24 History Strength] Ascorbic Acid [Vitamin C] 1,500 mg PO DAILY 01/11/24 01/22/24 History Melatonin 3 mg PO HS PRN 01/21/24 01/22/24 History Allergies Allergy/AdvReac Type Severity Reaction Status Date / Time No Known Allergies Allergy Verified 01/22/24 06:27 Physical Exam Vitals: Vital Signs Temp Pulse Pulse Resp BP BP Pulse Ox 01/22/24 14:15 79 20 100 01/22/24 14:00 97.5 F L 79 20 100 01/22/24 13:45 72 20 100 01/22/24 13:30 70 20 100 01/22/24 13:15 68 20 100 01/22/24 13:07 67 01/22/24 13:00 65 20 100 01/22/24 12:59 65 01/22/24 12:54 01/22/24 12:45 79 20 100 01/22/24 12:30 96.4 F L 79 20 100 01/22/24 12:29 01/22/24 12:25 01/22/24 06:05 98 F 76 16 145/67 140/73 97 FiO2 01/22/24 14:15 01/22/24 14:00 01/22/24 13:45 01/22/24 13:30 01/22/24 13:15 01/22/24 13:07 01/22/24 13:00 60 01/22/24 12:59 01/22/24 12:54 60 01/22/24 12:45 01/22/24 12:30 100 01/22/24 12:29 100 01/22/24 12:25 100 01/22/24 06:05 Intake and Output 01/22/24 01/22/24 01/22/24 06:59 14:59 22:59 Intake Total 100 401.444 Output Total 1445 Balance 100 -1043.556 Intake: IV 100 381 ACETAMINOPHEN IV (For NPO 100 ) 1,000 mg In Empty Bag 1 bag @ 400 mls/hr IVPB Q6H KUN Rx#:[id number] CO/CI 90 Lactated Ringers 1,000 ml 115 @ 50 mls/hr IV .Q20H KUN Rx#:[id number] pressure bags 24 Intake, IV Titration 20.444 Amount Insulin Regular 100 unit 1.262 In Sodium Chloride 0.9% 100 ml @ Per Protocol IV .Q0M KUN Rx#:[id number] propofoL 1,000 mg In 19.182 Empty Bag 1 bag @ Titrate IV .Q0M KUN Rx#: [id number] Output: Chest Tube Drainage 170 Left 55 Mediastinal 100 Right 15 Urine 675 Estimated Blood Loss 600 Other: Weight 79.1 kg ABP, PAP, CO, CI - Last 8 Hours Arterial Blood Pressure 102/48 Arterial Blood Pressure 100/48 Arterial Blood Pressure 98/46 Arterial Blood Pressure 100/47 Arterial Blood Pressure 103/47 Arterial Blood Pressure 104/47 Arterial Blood Pressure 119/57 Pulmonary Artery Pressure 19/12 Pulmonary Artery Pressure 22/11 Pulmonary Artery Pressure 21/10 Pulmonary Artery Pressure 22/13 Pulmonary Artery Pressure 23/13 Pulmonary Artery Pressure 22/12 Pulmonary Artery Pressure 21/12 Cardiac Output 4.9 Cardiac Output 4.7 Cardiac Output 4.9 Cardiac Index 2.6 Cardiac Index 2.5 Cardiac Index 2.6 Results CBC & Chem 7: 01/22/24 12:31 01/22/24 12:31 Labs: Abnormal Lab Results - Last 24 Hours (Table) 01/11/24 01/11/24 01/11/24 Range/Units 13:01 13:01 13:01 WBC (3.8-10.6) k/uL RBC (3.80-5.40) m/uL Hgb (11.4-16.0) gm/dL Hct (34.0-46.0) % Plt Count (150-450) k/uL Neutrophils # (1.3-7.7) k/uL Lymphocytes # (1.0-4.8) k/uL PT (10.0-12.5) sec INR (<1.2) APTT (22.0-30.0) sec Chloride (98-107) mmol/L Creatinine (0.52-1.04) mg/dL BUN/Creatinine Ratio 21.75 H (12.00-20.00) Ratio Glucose (74-99) mg/dL POC Glucose (mg/dL) (70-110) mg/dL Calcium (8.4-10.2) mg/dL Magnesium (1.6-2.3) mg/dL AST (14-36) U/L Total Protein (6.3-8.2) g/dL Albumin (3.5-5.0) g/dL Ur Leukocyte Esterase Small A (Negative) Ur Squamous Epith Cells 21-50 A (0-5) /LPF Calcium Oxalate Crystal Present A (None Seen) Crossmatch See Detail 01/22/24 01/22/24 01/22/24 Range/Units 12:31 12:31 12:31 WBC 11.5 H (3.8-10.6) k/uL RBC 3.47 L (3.80-5.40) m/uL Hgb 10.0 L (11.4-16.0) gm/dL Hct 30.6 L (34.0-46.0) % Plt Count 119 L (150-450) k/uL Neutrophils # 9.9 H (1.3-7.7) k/uL Lymphocytes # 0.9 L (1.0-4.8) k/uL PT 13.8 H (10.0-12.5) sec INR 1.3 H (<1.2) APTT 30.7 H (22.0-30.0) sec Chloride 110 H (98-107) mmol/L Creatinine 0.51 L (0.52-1.04) mg/dL BUN/Creatinine Ratio (12.00-20.00) Ratio Glucose 123 H (74-99) mg/dL POC Glucose (mg/dL) (70-110) mg/dL Calcium 7.9 L (8.4-10.2) mg/dL Magnesium 2.7 H (1.6-2.3) mg/dL AST 53 H (14-36) U/L Total Protein 4.8 L (6.3-8.2) g/dL Albumin 2.8 L (3.5-5.0) g/dL Ur Leukocyte Esterase (Negative) Ur Squamous Epith Cells (0-5) /LPF Calcium Oxalate Crystal (None Seen) Crossmatch 01/22/24 01/22/24 01/22/24 Range/Units 12:33 13:15 14:09 WBC (3.8-10.6) k/uL RBC (3.80-5.40) m/uL Hgb (11.4-16.0) gm/dL Hct (34.0-46.0) % Plt Count (150-450) k/uL Neutrophils # (1.3-7.7) k/uL Lymphocytes # (1.0-4.8) k/uL PT (10.0-12.5) sec INR (<1.2) APTT (22.0-30.0) sec Chloride (98-107) mmol/L Creatinine (0.52-1.04) mg/dL BUN/Creatinine Ratio (12.00-20.00) Ratio Glucose (74-99) mg/dL POC Glucose (mg/dL) 134 H 143 H 130 H (70-110) mg/dL Calcium (8.4-10.2) mg/dL Magnesium (1.6-2.3) mg/dL AST (14-36) U/L Total Protein (6.3-8.2) g/dL Albumin (3.5-5.0) g/dL Ur Leukocyte Esterase (Negative) Ur Squamous Epith Cells (0-5) /LPF Calcium Oxalate Crystal (None Seen) Crossmatch Microbiology - Last 24 Hours (Table) 01/11/24 13:01 Nasal Screen MRSA/MSSA - Final Nasal Swab 01/11/24 13:01 Urine Culture - Final Urine,Voided
[2024-01-22 15:09] LABS: Glucose,Whole Blood 125 mg/dL (70-110)
[2024-01-22] MEDS: CLEVIDIPINE BUTYRATE 25 MG in EMPTY BAG 1 BAG IV SCH (15:14)
[2024-01-22] MEDS: HEPARIN SODIUM,PORCINE 5,000 UNIT/ML 1 ML VIAL SQ SCH (15:20)
[2024-01-22 15:48] LABS: Basophils % (A) 0 %; Eosinophils % (A) 0 %; HCT 31.3 % (34.0-46.0); HGB 10.5 gm/dL (11.4-16.0); Lymphocytes # (A) 0.6 k/uL (1.0-4.8); Lymphocytes % (A) 4 %; MCH 29.4 pg (25.0-35.0); MCHC 33.4 g/dL (31.0-37.0); MCV 87.9 fL (80.0-100.0); Mean Platelet Volume 9.8; Monocytes % (A) 7 %; Neutrophils % (A) 87 %; Platelet Count 138 k/uL (150-450); RBC 3.56 m/uL (3.80-5.40); RDW 13.9 % (11.5-15.5); WBC 13.8 k/uL (3.8-10.6)
[2024-01-22 16:26] LABS: ABG Base Excess -0.1 mmol/L; ABG HCO3 25 mmol/L (21-25); ABG PCO2 42 mmHg (35-45); ABG PH 7.38 (7.35-7.45); ABG PO2 170 mmHg (83-108); ABG TCO2 26 mmol/L (19-24); Allen Test Performed? Yes
[2024-01-22 16:34] LABS: Glucose,Whole Blood 128 mg/dL (70-110)
--- NOTE | 2024-01-22 16:43 | P.CNPUL ---
History of Present Illness Consult date: 01/22/24 Requesting physician: Nadeem Carlisle Reason for consult: other (Mechanical ventilator/critical care management) Chief complaint: Bicuspid aortic valve stenosis History of present illness: This is a 73-year-old female patient with a known history of nephrolithiasis hyperlipidemia arthritis and bicuspid aortic valve stenosis. She was brought in electively today for an aortic valve replacement. She is seen today in consultation in the intensive care unit. She is currently intubated on the mechanical ventilator on assist-control mode at a rate of 20, tidal volume 400, FiO2 treated down to 40% and a PEEP of 5. Cardiac output 4.4. Cardiac index 2.4. PA pressures 20/12. CVP 7. X-ray reveals postoperative changes with some basilar atelectasis. Endotracheal and nasogastric tubes in good position. White count 13.8. Hemoglobin 10.5. Platelets 138. INR 1.3. Sodium 137. Potassium 4.1. Bicarb 23. BUN 12. Creatinine 0.51. Glucose 123. Right and left, mediastinal chest tubes in good position. Pacer wires in place with backup pacing at 80 bpm. Right IJ [place]-Uzma catheter in place. Left brachial arterial line in place. Heart hugger in place. Review of Systems ROS unobtainable: due to endotracheal tube Past Medical History Past Medical History: Osteoarthritis (OA) Additional Past Medical History / Comment(s): heart murmur,Aortic stenosis, Covid Aug 2023,kidney stones History of Any Multi-Drug Resistant Organisms: None Reported Past Surgical History: Bariatric Surgery, Cholecystectomy, Hysterectomy, Joint Replacement Additional Past Surgical History / Comment(s): gastric sleeve surgery, rt knee replacement,keely cataracts,partial hyst Past Anesthesia/Blood Transfusion Reactions: No Reported Reaction Additional Past Anesthesia/Blood Transfusion Reaction / Comment(s): no hx blood transfusion Past Psychological History: No Psychological Hx Reported Smoking Status: Never smoker Past Alcohol Use History: None Reported Past Drug Use History: None Reported - Past Family History Father Additional Family Medical History / Comment(s): aortic valve replaced Sister(s) Additional Family Medical History / Comment(s): aortic valve replaced Medications and Allergies Home Medications Medication Instructions Recorded Confirmed Type Cholecalciferol [Vitamin D3] 1,000 unit PO DAILY 11/29/17 01/22/24 History Vitamin B Complex 1 cap PO DAILY 11/29/17 01/22/24 History traMADol HCL [Ultram] 50 mg PO DAILY PRN 11/29/17 01/22/24 History Aspirin 81 mg PO DAILY 10/12/23 01/22/24 History Acetaminophen [Tylenol Extra 500 mg PO Q8H PRN 01/11/24 01/22/24 History Strength] Ascorbic Acid [Vitamin C] 1,500 mg PO DAILY 01/11/24 01/22/24 History Melatonin 3 mg PO HS PRN 01/21/24 01/22/24 History Allergies Allergy/AdvReac Type Severity Reaction Status Date / Time No Known Allergies Allergy Verified 01/22/24 06:27 Physical Exam Vitals: Vital Signs Temp Pulse Pulse Resp BP BP Pulse Ox 01/22/24 16:27 88 01/22/24 16:05 79 01/22/24 16:00 99.1 F 79 16 100 01/22/24 15:50 01/22/24 15:45 79 16 100 01/22/24 15:30 79 20 100 01/22/24 15:15 74 20 100 01/22/24 15:00 98.2 F 79 20 100 01/22/24 14:45 79 20 100 01/22/24 14:30 79 20 100 01/22/24 14:15 79 20 100 01/22/24 14:00 97.5 F L 79 20 100 01/22/24 13:45 72 20 100 01/22/24 13:30 70 20 100 01/22/24 13:15 68 20 100 01/22/24 13:07 67 01/22/24 13:00 65 20 100 01/22/24 12:59 65 01/22/24 12:54 01/22/24 12:45 79 20 100 01/22/24 12:30 96.4 F L 79 20 100 01/22/24 12:29 01/22/24 12:25 01/22/24 06:05 98 F 76 16 145/67 140/73 97 FiO2 01/22/24 16:27 01/22/24 16:05 01/22/24 16:00 40 01/22/24 15:50 40 01/22/24 15:45 40 01/22/24 15:30 01/22/24 15:15 01/22/24 15:00 01/22/24 14:45 01/22/24 14:30 01/22/24 14:15 01/22/24 14:00 01/22/24 13:45 01/22/24 13:30 01/22/24 13:15 01/22/24 13:07 01/22/24 13:00 60 01/22/24 12:59 01/22/24 12:54 60 01/22/24 12:45 01/22/24 12:30 100 01/22/24 12:29 100 01/22/24 12:25 100 01/22/24 06:05 Intake and Output 01/22/24 01/22/24 01/22/24 06:59 14:59 22:59 Intake Total 100 403.817 101.571 Output Total 1445 125 Balance 100 -1041.183 -23.429 Intake: IV 100 381 99 ACETAMINOPHEN IV (For NPO 100 ) 1,000 mg In Empty Bag 1 bag @ 400 mls/hr IVPB Q6H KUN Rx#:[id number] CO/CI 90 40 Lactated Ringers 1,000 ml 115 50 @ 50 mls/hr IV .Q20H KUN Rx#:[id number] pressure bags 24 9 Intake, IV Titration 22.817 2.571 Amount Insulin Regular 100 unit 1.262 In Sodium Chloride 0.9% 100 ml @ Per Protocol IV .Q0M KUN Rx#:[id number] propofoL 1,000 mg In 21.555 2.571 Empty Bag 1 bag @ Titrate IV .Q0M KUN Rx#: [id number] Output: Chest Tube Drainage 170 80 Left 55 35 Mediastinal 100 40 Right 15 5 Urine 675 45 Estimated Blood Loss 600 Other: Weight 79.1 kg ABP, PAP, CO, CI - Last 8 Hours Arterial Blood Pressure 105/51 Arterial Blood Pressure 96/48 Arterial Blood Pressure 96/47 Arterial Blood Pressure 101/49 Arterial Blood Pressure 104/50 Arterial Blood Pressure 103/51 Arterial Blood Pressure 104/50 Arterial Blood Pressure 102/48 Arterial Blood Pressure 100/48 Arterial Blood Pressure 98/46 Arterial Blood Pressure 100/47 Arterial Blood Pressure 103/47 Arterial Blood Pressure 104/47 Arterial Blood Pressure 119/57 Pulmonary Artery Pressure 20/12 Pulmonary Artery Pressure 19/10 Pulmonary Artery Pressure 18/10 Pulmonary Artery Pressure 19/10 Pulmonary Artery Pressure 20/11 Pulmonary Artery Pressure 20/9 Pulmonary Artery Pressure 20/11 Pulmonary Artery Pressure 19/12 Pulmonary Artery Pressure 22/11 Pulmonary Artery Pressure 21/10 Pulmonary Artery Pressure 22/13 Pulmonary Artery Pressure 23/13 Pulmonary Artery Pressure 22/12 Pulmonary Artery Pressure 21/12 Cardiac Output 4.4 Cardiac Output 4.3 Cardiac Output 4.9 Cardiac Output 4.7 Cardiac Output 4.9 Cardiac Index 2.4 Cardiac Index 2.3 Cardiac Index 2.6 Cardiac Index 2.5 Cardiac Index 2.6 GENERAL EXAM: Intubated, 73-year-old female on the mechanical ventilator,, comfortable in no apparent distress. HEAD: Normocephalic. EYES: Normal reaction of pupils, equal size. NOSE: Clear with pink turbinates. THROAT: No erythema or exudates. NECK: No masses, no JVD. Right IJ [place]-Uzma catheter in place CHEST: General dressing dry and intact. Right, left, mediastinal chest tubes in place, pacer wires in place LUNGS: Equal air entry with no crackles, wheeze, rhonchi or dullness. CVS: S1 and S2 normal with no audible murmur, regular rhythm. ABDOMEN: No hepatosplenomegaly, normal bowel sounds, no guarding or rigidity. SPINE: No scoliosis or deformity SKIN: No rashes CENTRAL NERVOUS SYSTEM: Intubated, tone is normal in all 4 extremities. EXTREMITIES: Left brachial arterial line in place. There is no peripheral edema. No clubbing, no cyanosis. Peripheral pulses are intact. Results - Laboratory Findings CBC and BMP: 01/22/24 15:30 01/22/24 12:31 PT/INR, D-dimer PT 13.8 sec (10.0-12.5) H 01/22/24 12:31 INR 1.3 (<1.2) H 01/22/24 12:31 Abnormal lab findings: Abnormal Labs 01/11/24 01/11/24 01/11/24 13:01 13:01 13:01 WBC RBC Hgb Hct Plt Count Neutrophils # Lymphocytes # PT INR APTT Chloride Creatinine BUN/Creatinine Ratio 21.75 H Glucose POC Glucose (mg/dL) Calcium Magnesium AST Total Protein Albumin Ur Leukocyte Esterase Small A Ur Squamous Epith Cells 21-50 A Calcium Oxalate Crystal Present A Crossmatch See Detail 03/29/24 03/29/24 03/29/24 12:31 12:31 12:31 WBC 11.5 H RBC 3.47 L Hgb 10.0 L Hct 30.6 L Plt Count 119 L Neutrophils # 9.9 H Lymphocytes # 0.9 L PT 13.8 H INR 1.3 H APTT 30.7 H Chloride 110 H Creatinine 0.51 L BUN/Creatinine Ratio Glucose 123 H POC Glucose (mg/dL) Calcium 7.9 L Magnesium 2.7 H AST 53 H Total Protein 4.8 L Albumin 2.8 L Ur Leukocyte Esterase Ur Squamous Epith Cells Calcium Oxalate Crystal Crossmatch 01/22/24 01/22/24 01/22/24 12:33 13:15 14:09 WBC RBC Hgb Hct Plt Count Neutrophils # Lymphocytes # PT INR APTT Chloride Creatinine BUN/Creatinine Ratio Glucose POC Glucose (mg/dL) 134 H 143 H 130 H Calcium Magnesium AST Total Protein Albumin Ur Leukocyte Esterase Ur Squamous Epith Cells Calcium Oxalate Crystal Crossmatch 01/22/24 01/22/24 01/22/24 15:07 15:30 16:33 WBC 13.8 H RBC 3.56 L Hgb 10.5 L Hct 31.3 L Plt Count 138 L Neutrophils # 12.0 H Lymphocytes # 0.6 L PT INR APTT Chloride Creatinine BUN/Creatinine Ratio Glucose POC Glucose (mg/dL) 125 H 128 H Calcium Magnesium AST Total Protein Albumin Ur Leukocyte Esterase Ur Squamous Epith Cells Calcium Oxalate Crystal Crossmatch - Diagnostic Findings Chest x-ray: image reviewed Assessment and Plan Assessment: Symptomatic bicuspid aortic valve stenosis. Status post aortic valve replacement. Postoperative day #0 History of nephrolithiasis Hyperlipidemia Arthritis Plan: The patient was seen and evaluated Chest x-ray, ABGs, labs and medications reviewed Will plan for early extubation protocol as tolerated Encourage increased use of the incentive spirometer Continue bronchodilators Continue lactated Ringer's at 50 mL/h We will continue to follow and make further recommendations based on her clinical status I have personally seen and examined the patient, performed the documentation and the assessment and plan as written. Number of minutes spent on the visit: 20.
[2024-01-22] MEDS: ALBUMIN HUMAN 5% 250 ML in EMPTY BAG 1 BAG IVPB PRN (17:14)
[2024-01-22 17:18] LABS: ABG Oxygen Saturation 98.8 % (94-97)
[2024-01-22 17:19] LABS: ABG Oxygen Saturation 99.4 % (94-97)
[2024-01-22 17:54] LABS: Glucose,Whole Blood 124 mg/dL (70-110)
[2024-01-22 18:54] LABS: Glucose,Whole Blood 119 mg/dL (70-110)
[2024-01-22 19:04] LABS: Basophils % (A) 0 %; Eosinophils % (A) 0 %; HCT 27.6 % (34.0-46.0); Lymphocytes # (A) 0.3 k/uL (1.0-4.8); Lymphocytes % (A) 3 %; MCH 28.7 pg (25.0-35.0); MCHC 32.5 g/dL (31.0-37.0); MCV 88.4 fL (80.0-100.0); Mean Platelet Volume 10.7; Monocytes # (A) 0.4 k/uL (0-1.0); Monocytes % (A) 5 %; Neutrophils # (A) 8.4 k/uL (1.3-7.7); Neutrophils % (A) 92 %; Platelet Count 105 k/uL (150-450); RBC 3.12 m/uL (3.80-5.40); RDW 13.7 % (11.5-15.5); WBC 9.2 k/uL (3.8-10.6)
[2024-01-22 19:56] LABS: Glucose,Whole Blood 128 mg/dL (70-110)
--- NOTE | 2024-01-22 19:59 | OP ---
OPERATIVE REPORT DATE OF SERVICE : 01/22/2024 PREOPERATIVE DIAGNOSIS: Severe aortic valve stenosis. POSTOPERATIVE DIAGNOSIS: Severe aortic valve stenosis. PROCEDURE: 1. Aortic valve replacement using 21 mm Lynch Inspiris bioprosthetic valve. 2. Ligation of left atrial appendage using 35 mm AtriClip. 3. Epiaortic ultrasound. 4. Transesophageal echocardiogram. ASSISTANTS: 1. Mariano Schmid PA-C. 2. ALEA Whitney. ANESTHESIA: General. SPECIMEN: Aortic valve leaflets. COMPLICATIONS: None. INDICATION: The patient is a 73-year-old female with history of arthritis, hyperlipidemia, and kidney stones, who reports a known murmur since an early age. She reports shortness of breath with activity along with fatigue and dizziness. Echocardiogram confirmed severe aortic valve stenosis with a bicuspid aortic valve. An aortic valve replacement was recommended. The risks, benefits, and alternatives of the procedure were discussed with the patient. All her questions were answered. Consent was obtained. FINDINGS: The aortic valve was heavily calcified and bicuspid in nature. PROCEDURE IN DETAIL: The patient was taken to the operating room and placed supine on the operating table. After the induction of general anesthesia, she was prepped and draped in the usual sterile fashion. Preoperative transesophageal echocardiogram confirmed a bicuspid aortic valve with associated severe stenosis. There is [id number] central mitral regurgitation. Her ejection fraction was preserved. There was no clot noted within the left atrial appendage. A median sternotomy was performed. Intravenous heparin was administered. A pericardial cradle was created. The ascending aorta was palpated. There was no significant calcific plaque noted. Epiaortic ultrasound was then performed on the ascending aorta. Again, no calcific plaque or atheromatous disease was identified. An arterial cannula was placed in the distal ascending aorta. The venous cannula was placed through the right atrial appendage and directed into the IVC. Both antegrade and retrograde catheters were placed as well. The patient was then placed on cardiopulmonary bypass with good decompression of heart. The aortic cross- clamp was applied. An LV sump was placed via the right superior pulmonary vein. Cold blood potassium cardioplegia was delivered in both antegrade and retrograde fashion to achieve arrest of the heart. Of note, cardioplegia was delivered every 15 to 20 minutes while the patient remained under crossclamp. I began by identifying the left atrial appendage. A 35 mm AtriClip was placed across its base to ensure ligation. Next, a standard hockey-stick incision was created of the proximal ascending aorta. Of note, CO2 was administered across the operative field. The aortic valve was identified. It was bicuspid in nature with heavy calcium burden on the leaflets as well as on the anulus. Using scissors, the aortic leaflets were sharply excised and sent to pathology. Residual calcium was then removed using a rongeur. Both the left and right coronary ostia were identified. The aortic root was then copiously irrigated with cold saline solution. Using a sizing device, a 21 mm Lynch Inspiris bioprosthetic valve was chosen. Interrupted sutures were placed circumferentially around the anulus. The sutures were passed through the sewing ring of the valve. The bioprosthetic valve was then lowered in position and appeared to seat nicely. This sutures were then tied using core knots. Care was taken to place the sewing ring below both coronary ostia. Good note of cardioplegia was visualized from both coronary ostia during delivery of retrograde cardioplegia. The aortic leaflets did not appear to be obstructed in any way. The aortotomy was then closed in 2 layers using running 4-0 Prolene suture and the closure was reinforced with felt strips. 1 L of warm blood was delivered in retrograde fashion. Standard de-airing maneuvers were performed. Both lidocaine and magnesium were administered as well. The aortic cross-clamp was removed. Followup transesophageal echocardiogram confirmed no evidence of intracardiac care. The patient was then carefully weaned off cardiopulmonary bypass. She without difficulty. Followup transesophageal echocardiogram confirmed that the bioprosthetic valve was well seated without evidence of perivalvular leak. Leaflets open and close without obstruction. Protamine was administered. There were no adverse reactions. The remaining cannulas were removed. Temporary atrioventricular pacing wires were placed and brought through the skin. The mediastinum was copiously irrigated with warm saline solution. Again, all surgical sites were inspected and appeared to be hemostatic. Soft tissues reapproximated over the ascending aorta as well as over the majority of the heart. Chest tubes were placed in both the left pleural space and the mediastinum. Of note, the left pleural space was opened widely. A Arslan drain was placed and directed into the right pleural space. These were all secured to the skin using sutures. The sternum was then reapproximated using the [place] cable system. The cables were placed in a [id number] fashion. At the completion of the closure, the sternum was well aligned. The remainder of the wound was closed in layers. Sterile dressing was applied. The patient appeared to tolerate the procedure well. There were no immediate complications. She returned to the ICU in critical, but stable condition. She did not receive any intraoperative blood products. MMODL / IJN: [id number] /
[2024-01-22] MEDS: SENNOSIDES-DOCUSATE SODIUM 1 EACH TAB PO SCH (20:11)
[2024-01-22 20:52] LABS: HCT 27.3 % (34.0-46.0); MCH 28.7 pg (25.0-35.0); MCHC 32.3 g/dL (31.0-37.0); MCV 89.1 fL (80.0-100.0); Mean Platelet Volume 9.1; Platelet Count 117 k/uL (150-450); RBC 3.06 m/uL (3.80-5.40); RDW 13.8 % (11.5-15.5); WBC 9.1 k/uL (3.8-10.6)
[2024-01-22 20:58] LABS: INR 1.1 (<1.2); Partial Thromboplastin Time 33.6 sec (22.0-30.0); Prothrombin Time 12.3 sec (10.0-12.5)
[2024-01-22 20:59] LABS: HGB 8.8 gm/dL (11.4-16.0)
[2024-01-22 21:03] LABS: Glucose,Whole Blood 123 mg/dL (70-110)
[2024-01-22 22:05] LABS: Glucose,Whole Blood 127 mg/dL (70-110)
[2024-01-22] MEDS: ONDANSETRON 4 MG/2 ML VIAL IVP PRN (22:53)
[2024-01-22 23:00] LABS: Glucose,Whole Blood 126 mg/dL (70-110)
[2024-01-23 00:04] LABS: Glucose,Whole Blood 124 mg/dL (70-110)
[2024-01-23 01:03] LABS: Glucose,Whole Blood 117 mg/dL (70-110)
[2024-01-23] MEDS: ALBUMIN HUMAN 5% 250 ML in EMPTY BAG 1 BAG IVPB ONE (01:59)
[2024-01-23 02:08] LABS: Glucose,Whole Blood 116 mg/dL (70-110)
[2024-01-23 03:06] LABS: Glucose,Whole Blood 115 mg/dL (70-110)
[2024-01-23 03:35] LABS: Glucose,Whole Blood 122 mg/dL (70-110)
[2024-01-23 03:42] LABS: Basophils % (A) 0 %; Eosinophils % (A) 0 %; HCT 22.5 % (34.0-46.0); Lymphocytes # (A) 0.5 k/uL (1.0-4.8); Lymphocytes % (A) 8 %; MCH 29.6 pg (25.0-35.0); MCHC 32.9 g/dL (31.0-37.0); MCV 89.9 fL (80.0-100.0); Mean Platelet Volume 11.5; Monocytes # (A) 0.4 k/uL (0-1.0); Monocytes % (A) 6 %; Neutrophils # (A) 5.5 k/uL (1.3-7.7); Neutrophils % (A) 85 %; RDW 14.1 % (11.5-15.5); WBC 6.4 k/uL (3.8-10.6)
[2024-01-23 03:46] LABS: HGB 7.4 gm/dL (11.4-16.0)
[2024-01-23 04:05] LABS: Ionized Calcium 4.8 mg/dL (4.5-5.3)
[2024-01-23 04:10] LABS: Platelet Count 64 k/uL (150-450)
[2024-01-23 04:20] LABS: ALT 12 U/L (4-34); AST 39 U/L (14-36); African American GFR (CKD) >90 (>60 ml/min/1.73 sqM); Albumin 3.6 g/dL (3.5-5.0); Alkaline Phosphatase 37 U/L (38-126); Anion Gap 10 mmol/L; Blood Urea Nitrogen 13 mg/dL (7-17); Carbon Dioxide 19 mmol/L (22-30); Chloride 110 mmol/L (98-107); Glucose 105 mg/dL (74-99); Magnesium 2.1 mg/dL (1.6-2.3); Non-African American GFR(CKD) >90 (>60 ml/min/1.73 sqM); Potassium 4.1 mmol/L (3.5-5.1); Sodium 139 mmol/L (137-145); Total Bilirubin 0.8 mg/dL (0.2-1.3); Total Protein 5.2 g/dL (6.3-8.2)
[2024-01-23 04:56] LABS: Glucose,Whole Blood 116 mg/dL (70-110)
[2024-01-23] MEDS: METOCLOPRAMIDE 5 MG/ML 2 ML VIAL IVP PRN (05:50)
[2024-01-23 06:02] LABS: Glucose,Whole Blood 121 mg/dL (70-110)
[2024-01-23 07:01] LABS: Glucose,Whole Blood 111 mg/dL (70-110)
[2024-01-23] MEDS: FERROUS SULFATE 325 MG TAB PO SCH (07:09)
--- NOTE | 2024-01-23 08:05 | P.PN ---
Subjective Progress Note Date: 01/23/24 Principal diagnosis: Severe aortic valve stenosis with bicuspid aortic valve. History of hyperlipidemia, arthritis, lifelong non-smoker, and family history of aortic valve replacement in both father and sister POD #1 aortic valve replacement using a 21 mm Lynch Inspiris bioprosthetic valve, ligation of the left atrial appendage using a 35 mm AtriClip, epiaortic ultrasound and intraoperative transesophageal echocardiogram Postoperative acute blood loss anemia and thrombocytopenia, expected given hemodilution The patient was seen and examined sitting up in recliner at this morning in no acute distress. She was successfully extubated yesterday at 16:25. Currently in sinus rhythm, hemodynamically stable on no inotropes or pressors. Does complain of expected postsurgical chest discomfort which she is tolerating on current medication regimen, denies shortness of breath. Right internal jugular Thayer/Cordis, right radial arterial line, mediastinal/right/left pleural chest tubes all remain. Chest x-ray, labs reviewed. No other new concerns. Objective - Vital Signs Vital signs: Vital Signs Temp 99.5 F 01/22/24 20:00 Pulse 82 01/23/24 07:00 Resp 21 01/23/24 07:00 BP 88/45 01/23/24 03:30 Pulse Ox 94 L 01/23/24 07:00 FiO2 40 01/22/24 16:00 Intake & Output 01/22/24 01/23/24 01/23/24 18:59 06:59 18:59 Intake Total 037.535 9241.631 89 Output Total 1970 1380 20 Balance -1167.798 433.631 69 Weight 77.2 kg Intake: IV 772 1708 89 ACETAMINOPHEN IV (For NPO 100 100 ) 1,000 mg In Empty Bag 1 bag @ 400 mls/hr IVPB Q6H KUN Rx#:[id number] Albumin Human 5% 250 ml 750 In Empty Bag 1 bag @ 250 mls/hr IVPB Q1HR PRN Rx#: [id number] CO/CI 200 160 30 Lactated Ringers 1,000 ml 310 590 50 @ 20 mls/hr IV .Q24H KUN Rx#:[id number] ceFAZolin 2 gm In Sodium 50 Chloride 0.9% 50 ml @ 100 mls/hr IVPB Q8HR KUN Rx# :[id number] pressure bags 60 108 9 Intake, IV Titration 30.202 5.631 Amount Insulin Regular 100 unit 6.076 5.631 In Sodium Chloride 0.9% 100 ml @ Per Protocol IV .Q0M KUN Rx#:[id number] propofoL 1,000 mg In 24.126 Empty Bag 1 bag @ Titrate IV .Q0M KUN Rx#: [id number] Oral 100 Output: Chest Tube Drainage 450 950 0 Left 140 260 0 Mediastinal 200 180 0 Right 110 510 0 Urine 920 430 20 Estimated Blood Loss 600 Other: Voiding Method Indwelling Catheter Indwelling Catheter ABP, PAP, CO, CI - Last Documented Arterial Blood Pressure 110/42 Pulmonary Artery Pressure 18/5 Cardiac Output 5.2 Cardiac Index 2.8 - Exam CONSTITUTIONAL: Appears comfortable, cooperative, no acute distress RESPIRATORY: Lungs sounds diminished bilaterally. Respirations even, nonlabored. Currently on room air with oxygen saturation 96%. Able to achieve 500-750 mL on incentive spirometry. Strong cough. CARDIOVASCULAR: S1, S2 present. Regular rate and rhythm, sinus rhythm on telemetry. Sternum stable. Palpable peripheral pulses bilaterally. No edema present. No calf pain or tenderness noted. Heart hugger in place with patient demonstrating appropriate use. Antiembolism stockings, SCDs present. GASTROINTESTINAL: Abdomen soft, nontender, nondistended. Hypoactive bowel sounds present 4 quadrants. Tolerating clear liquids. Denies flatus GENITOURINARY: Cota present draining clear, yellow urine. Output overnight 10-50 mL per hour INTEGUMENTARY: Skin is warm and dry with evidence of good perfusion. Anterior chest incision well approximated and covered with dry intact dressing NEUROLOGIC: Cranial nerves II through XII intact MUSKULOSKELETAL: Able to move all extremities, strength equal bilaterally PSYCHIATRIC: Alert and oriented to person place and time, appropriate affect, intact judgment and insight INVASIVE LINES AND TUBES: Mediastinal/left/right pleural chest tubes present and connected to wall suction, no air leaks present. Mediastinal tube with 80 mL serosanguineous drainage overnight, 400 mL since surgery. Left pleural chest tube with 160 mL serosanguineous drainage overnight, 400 mL since surgery. Right pleural chest tube with 250 mL serosanguineous drainage overnight, 600 mL since surgery. A/V epicardial pacemaker wires present, connected to generator, backup rate 50 bpm. Right internal jugular Thayer/Cordis, right radial arterial line present. Last CO/CI 5.1/2.8, PA 20/7, CVP 3. - Allied health notes Allied health notes reviewed: nursing - Labs CBC & Chem 7: 01/23/24 03:35 01/23/24 03:35 Labs: Abnormal Lab Results - Last 24 Hours (Table) 01/11/24 01/22/24 01/22/24 Range/Units 13:01 12:31 12:31 WBC 11.5 H (3.8-10.6) k/uL RBC 3.47 L (3.80-5.40) m/uL Hgb 10.0 L (11.4-16.0) gm/dL Hct 30.6 L (34.0-46.0) % Plt Count 119 L (150-450) k/uL Neutrophils # 9.9 H (1.3-7.7) k/uL Lymphocytes # 0.9 L (1.0-4.8) k/uL PT 13.8 H (10.0-12.5) sec INR 1.3 H (<1.2) APTT 30.7 H (22.0-30.0) sec ABG pO2 (83-108) mmHg ABG Total CO2 (19-24) mmol/L ABG O2 Saturation (94-97) % Chloride (98-107) mmol/L Carbon Dioxide (22-30) mmol/L Creatinine (0.52-1.04) mg/dL Glucose (74-99) mg/dL POC Glucose (mg/dL) (70-110) mg/dL Calcium (8.4-10.2) mg/dL Magnesium (1.6-2.3) mg/dL AST (14-36) U/L Alkaline Phosphatase (38-126) U/L Total Protein (6.3-8.2) g/dL Albumin (3.5-5.0) g/dL Crossmatch See Detail 01/22/24 01/22/24 01/22/24 Range/Units 12:31 12:33 12:50 WBC (3.8-10.6) k/uL RBC (3.80-5.40) m/uL Hgb (11.4-16.0) gm/dL Hct (34.0-46.0) % Plt Count (150-450) k/uL Neutrophils # (1.3-7.7) k/uL Lymphocytes # (1.0-4.8) k/uL PT (10.0-12.5) sec INR (<1.2) APTT (22.0-30.0) sec ABG pO2 >400 H (83-108) mmHg ABG Total CO2 26 H (19-24) mmol/L ABG O2 Saturation 99.4 H (94-97) % Chloride 110 H (98-107) mmol/L Carbon Dioxide (22-30) mmol/L Creatinine 0.51 L (0.52-1.04) mg/dL Glucose 123 H (74-99) mg/dL POC Glucose (mg/dL) 134 H (70-110) mg/dL Calcium 7.9 L (8.4-10.2) mg/dL Magnesium 2.7 H (1.6-2.3) mg/dL AST 53 H (14-36) U/L Alkaline Phosphatase (38-126) U/L Total Protein 4.8 L (6.3-8.2) g/dL Albumin 2.8 L (3.5-5.0) g/dL Crossmatch 01/22/24 01/22/24 01/22/24 Range/Units 13:15 14:09 15:07 WBC (3.8-10.6) k/uL RBC (3.80-5.40) m/uL Hgb (11.4-16.0) gm/dL Hct (34.0-46.0) % Plt Count (150-450) k/uL Neutrophils # (1.3-7.7) k/uL Lymphocytes # (1.0-4.8) k/uL PT (10.0-12.5) sec INR (<1.2) APTT (22.0-30.0) sec ABG pO2 (83-108) mmHg ABG Total CO2 (19-24) mmol/L ABG O2 Saturation (94-97) % Chloride (98-107) mmol/L Carbon Dioxide (22-30) mmol/L Creatinine (0.52-1.04) mg/dL Glucose (74-99) mg/dL POC Glucose (mg/dL) 143 H 130 H 125 H (70-110) mg/dL Calcium (8.4-10.2) mg/dL Magnesium (1.6-2.3) mg/dL AST (14-36) U/L Alkaline Phosphatase (38-126) U/L Total Protein (6.3-8.2) g/dL Albumin (3.5-5.0) g/dL Crossmatch 01/22/24 01/22/24 01/22/24 Range/Units 15:30 16:24 16:33 WBC 13.8 H (3.8-10.6) k/uL RBC 3.56 L (3.80-5.40) m/uL Hgb 10.5 L (11.4-16.0) gm/dL Hct 31.3 L (34.0-46.0) % Plt Count 138 L (150-450) k/uL Neutrophils # 12.0 H (1.3-7.7) k/uL Lymphocytes # 0.6 L (1.0-4.8) k/uL PT (10.0-12.5) sec INR (<1.2) APTT (22.0-30.0) sec ABG pO2 170 H (83-108) mmHg ABG Total CO2 26 H (19-24) mmol/L ABG O2 Saturation 98.8 H (94-97) % Chloride (98-107) mmol/L Carbon Dioxide (22-30) mmol/L Creatinine (0.52-1.04) mg/dL Glucose (74-99) mg/dL POC Glucose (mg/dL) 128 H (70-110) mg/dL Calcium (8.4-10.2) mg/dL Magnesium (1.6-2.3) mg/dL AST (14-36) U/L Alkaline Phosphatase (38-126) U/L Total Protein (6.3-8.2) g/dL Albumin (3.5-5.0) g/dL Crossmatch 01/22/24 01/22/24 01/22/24 Range/Units 17:52 18:25 18:25 WBC (3.8-10.6) k/uL RBC 3.06 L (3.80-5.40) m/uL Hgb 8.8 L D (11.4-16.0) gm/dL Hct 27.3 L (34.0-46.0) % Plt Count 117 L (150-450) k/uL Neutrophils # (1.3-7.7) k/uL Lymphocytes # (1.0-4.8) k/uL PT (10.0-12.5) sec INR (<1.2) APTT 33.6 H (22.0-30.0) sec ABG pO2 (83-108) mmHg ABG Total CO2 (19-24) mmol/L ABG O2 Saturation (94-97) % Chloride (98-107) mmol/L Carbon Dioxide (22-30) mmol/L Creatinine (0.52-1.04) mg/dL Glucose (74-99) mg/dL POC Glucose (mg/dL) 124 H (70-110) mg/dL Calcium (8.4-10.2) mg/dL Magnesium (1.6-2.3) mg/dL AST (14-36) U/L Alkaline Phosphatase (38-126) U/L Total Protein (6.3-8.2) g/dL Albumin (3.5-5.0) g/dL Crossmatch 01/22/24 01/22/24 01/22/24 Range/Units 18:50 18:53 19:54 WBC (3.8-10.6) k/uL RBC 3.12 L (3.80-5.40) m/uL Hgb 9.0 L (11.4-16.0) gm/dL Hct 27.6 L (34.0-46.0) % Plt Count 105 L (150-450) k/uL Neutrophils # 8.4 H (1.3-7.7) k/uL Lymphocytes # 0.3 L (1.0-4.8) k/uL PT (10.0-12.5) sec INR (<1.2) APTT (22.0-30.0) sec ABG pO2 (83-108) mmHg ABG Total CO2 (19-24) mmol/L ABG O2 Saturation (94-97) % Chloride (98-107) mmol/L Carbon Dioxide (22-30) mmol/L Creatinine (0.52-1.04) mg/dL Glucose (74-99) mg/dL POC Glucose (mg/dL) 119 H 128 H (70-110) mg/dL Calcium (8.4-10.2) mg/dL Magnesium (1.6-2.3) mg/dL AST (14-36) U/L Alkaline Phosphatase (38-126) U/L Total Protein (6.3-8.2) g/dL Albumin (3.5-5.0) g/dL Crossmatch 01/22/24 01/22/24 01/22/24 Range/Units 21:01 22:04 22:58 WBC (3.8-10.6) k/uL RBC (3.80-5.40) m/uL Hgb (11.4-16.0) gm/dL Hct (34.0-46.0) % Plt Count (150-450) k/uL Neutrophils # (1.3-7.7) k/uL Lymphocytes # (1.0-4.8) k/uL PT (10.0-12.5) sec INR (<1.2) APTT (22.0-30.0) sec ABG pO2 (83-108) mmHg ABG Total CO2 (19-24) mmol/L ABG O2 Saturation (94-97) % Chloride (98-107) mmol/L Carbon Dioxide (22-30) mmol/L Creatinine (0.52-1.04) mg/dL Glucose (74-99) mg/dL POC Glucose (mg/dL) 123 H 127 H 126 H (70-110) mg/dL Calcium (8.4-10.2) mg/dL Magnesium (1.6-2.3) mg/dL AST (14-36) U/L Alkaline Phosphatase (38-126) U/L Total Protein (6.3-8.2) g/dL Albumin (3.5-5.0) g/dL Crossmatch 01/23/24 01/23/24 01/23/24 Range/Units 00:03 01:01 02:05 WBC (3.8-10.6) k/uL RBC (3.80-5.40) m/uL Hgb (11.4-16.0) gm/dL Hct (34.0-46.0) % Plt Count (150-450) k/uL Neutrophils # (1.3-7.7) k/uL Lymphocytes # (1.0-4.8) k/uL PT (10.0-12.5) sec INR (<1.2) APTT (22.0-30.0) sec ABG pO2 (83-108) mmHg ABG Total CO2 (19-24) mmol/L ABG O2 Saturation (94-97) % Chloride (98-107) mmol/L Carbon Dioxide (22-30) mmol/L Creatinine (0.52-1.04) mg/dL Glucose (74-99) mg/dL POC Glucose (mg/dL) 124 H 117 H 116 H (70-110) mg/dL Calcium (8.4-10.2) mg/dL Magnesium (1.6-2.3) mg/dL AST (14-36) U/L Alkaline Phosphatase (38-126) U/L Total Protein (6.3-8.2) g/dL Albumin (3.5-5.0) g/dL Crossmatch 01/23/24 01/23/24 01/23/24 Range/Units 03:04 03:33 03:35 WBC (3.8-10.6) k/uL RBC 2.50 L (3.80-5.40) m/uL Hgb 7.4 L D (11.4-16.0) gm/dL Hct 22.5 L (34.0-46.0) % Plt Count 64 L (150-450) k/uL Neutrophils # (1.3-7.7) k/uL Lymphocytes # 0.5 L (1.0-4.8) k/uL PT (10.0-12.5) sec INR (<1.2) APTT (22.0-30.0) sec ABG pO2 (83-108) mmHg ABG Total CO2 (19-24) mmol/L ABG O2 Saturation (94-97) % Chloride (98-107) mmol/L Carbon Dioxide (22-30) mmol/L Creatinine (0.52-1.04) mg/dL Glucose (74-99) mg/dL POC Glucose (mg/dL) 115 H 122 H (70-110) mg/dL Calcium (8.4-10.2) mg/dL Magnesium (1.6-2.3) mg/dL AST (14-36) U/L Alkaline Phosphatase (38-126) U/L Total Protein (6.3-8.2) g/dL Albumin (3.5-5.0) g/dL Crossmatch 01/23/24 01/23/24 01/23/24 Range/Units 03:35 04:54 06:00 WBC (3.8-10.6) k/uL RBC (3.80-5.40) m/uL Hgb (11.4-16.0) gm/dL Hct (34.0-46.0) % Plt Count (150-450) k/uL Neutrophils # (1.3-7.7) k/uL Lymphocytes # (1.0-4.8) k/uL PT (10.0-12.5) sec INR (<1.2) APTT (22.0-30.0) sec ABG pO2 (83-108) mmHg ABG Total CO2 (19-24) mmol/L ABG O2 Saturation (94-97) % Chloride 110 H (98-107) mmol/L Carbon Dioxide 19 L (22-30) mmol/L Creatinine (0.52-1.04) mg/dL Glucose 105 H (74-99) mg/dL POC Glucose (mg/dL) 116 H 121 H (70-110) mg/dL Calcium 8.0 L (8.4-10.2) mg/dL Magnesium (1.6-2.3) mg/dL AST 39 H (14-36) U/L Alkaline Phosphatase 37 L (38-126) U/L Total Protein 5.2 L (6.3-8.2) g/dL Albumin (3.5-5.0) g/dL Crossmatch 01/23/24 Range/Units 07:00 WBC (3.8-10.6) k/uL RBC (3.80-5.40) m/uL Hgb (11.4-16.0) gm/dL Hct (34.0-46.0) % Plt Count (150-450) k/uL Neutrophils # (1.3-7.7) k/uL Lymphocytes # (1.0-4.8) k/uL PT (10.0-12.5) sec INR (<1.2) APTT (22.0-30.0) sec ABG pO2 (83-108) mmHg ABG Total CO2 (19-24) mmol/L ABG O2 Saturation (94-97) % Chloride (98-107) mmol/L Carbon Dioxide (22-30) mmol/L Creatinine (0.52-1.04) mg/dL Glucose (74-99) mg/dL POC Glucose (mg/dL) 111 H (70-110) mg/dL Calcium (8.4-10.2) mg/dL Magnesium (1.6-2.3) mg/dL AST (14-36) U/L Alkaline Phosphatase (38-126) U/L Total Protein (6.3-8.2) g/dL Albumin (3.5-5.0) g/dL Crossmatch Microbiology - Last 24 Hours (Table) 01/11/24 13:01 Nasal Screen MRSA/MSSA - Final Nasal Swab 01/11/24 13:01 Urine Culture - Final Urine,Voided - Imaging and Cardiology Chest x-ray: image reviewed Assessment and Plan Assessment: Severe aortic valve stenosis with bicuspid aortic valve, status post bioprosthetic aortic valve replacement History of hyperlipidemia Arthritis Lifelong non-smoker Family history of aortic valve replacement in both father and sister Postoperative acute blood loss anemia and thrombocytopenia, expected Plan: Continue to maximize medical therapy with low-dose aspirin, statin, beta- dora. Will increase beta-dora therapy as tolerated Encourage incentive spirometry use 10 times every hour while awake. Bron chodilators per pulmonology Increase activity, ambulate as tolerated. PT/OT/cardiac rehab consulted Will monitor daily labs and x-rays. Electrolyte replacement per protocol GI/DVT prophylaxis Insulin management per internal medicine, patient is not diabetic, preoperative hemoglobin A1c 5.1%. Patient should remain on continuous IV insulin for 48 hours for tight blood sugar control, then may switch to subcutaneous Pain control with current medication regimen Discontinue Thayer. Connect Cordis to continuous CVP monitoring Continue chest tubes for another 24 hours, monitor output Continue Cota catheter for another 24 hours, continue to record strict accurate intake and output More recommendations to follow based on patient's progress
[2024-01-23 08:26] LABS: Glucose,Whole Blood 146 mg/dL (70-110)
[2024-01-23] MEDS: ASPIRIN 81 MG PO SCH (08:36)
[2024-01-23] MEDS: ASCORBIC ACID 500 MG TAB PO SCH (08:36)
[2024-01-23] MEDS: PANTOPRAZOLE 40 MG/10 ML VIAL IVP SCH (08:36)
[2024-01-23] MEDS: METOPROLOL TARTRATE 12.5 MG TAB PO SCH (08:36)
[2024-01-23] MEDS: ATORVASTATIN 40 MG TAB PO SCH (08:36)
[2024-01-23] MEDS: CHOLECALCIFEROL 25 MCG (1000 IU) TABLET PO SCH (08:43)
[2024-01-23] MEDS ORDERED: NON FORMULARY DRUG (Vitamin B Complex [Vitamin B Complex] 1 EACH Capsule) PO SCH (09:00)
[2024-01-23] MEDS ORDERED: MAGNESIUM HYDROXIDE 2,400 MG/30 ML CUP PO PRN (09:00)
[2024-01-23] MEDS ORDERED: CHOLECALCIFEROL 25 MCG (1000 IU) TABLET PO SCH (09:00)
[2024-01-23] MEDS ORDERED: bisacodyL 10 MG SUPP RECTAL PRN (09:00)
[2024-01-23] MEDS ORDERED: ASPIRIN 325 MG TAB PO SCH (09:00)
[2024-01-23] MEDS ORDERED: CLOPIDOGREL 75 MG TAB PO SCH (09:00)
[2024-01-23] MEDS ORDERED: DEXTROSE 50% SYRINGE 50 ML IVP PRN ×2 (09:13)
--- NOTE | 2024-01-23 09:18 | P.PN ---
Progress Note - Text Progress Note Date: 01/23/24 - Chief Complaint Aortic valve surgery - History of Present Illness This is a 73-year-old patient, follows Dr. Calixto. Patient recently underwent a cardiac catheterization that showed normal coronaries. Patient has known severe arctic stenosis with a KAROL showing area of 0.6 cm. Bicuspid arctic valve. Patient today underwent aortic valve repair. Formal note is pending. Patient received albumin and Cell Saver during procedure. Postprocedure in the ICU. Intubated. On propofol and insulin. On the ventilator. Patient has 1 left 1 right pleural chest tube and 1 mediastinal chest tube. FiO2 60%. January 22: Patient extubated this morning. Up in a recliner. Chest tubes remain in place. On clear liquid diet. Patient received IV amiodarone yesterday. DC IV insulin drip. Levemir 10 units IV once. Follow Accu-Cheks. Active Medications Acetaminophen (Acetaminophen Tab 325 Mg Tab) 650 mg PO Q4HR PRN PRN Reason: Fever and/ or Pain Albuterol/Ipratropium (Ipratropium-Albuterol 3 Ml Neb) 3 ml INHALATION RT-Q2H PRN PRN Reason: Shortness Of Breath Or Wheezing Albuterol/Ipratropium (Ipratropium-Albuterol 3 Ml Neb) 3 ml INHALATION RT-QID [facility] Last Admin: 01/22/24 21:11 Dose: 3 ml Ascorbic Acid (Ascorbic Acid 500 Mg Tab) 1,500 mg PO DAILY [facility] Last Admin: 01/23/24 08:36 Dose: 1,500 mg Aspirin (Aspirin 81 Mg) 81 mg PO DAILY [facility] Last Admin: 01/23/24 08:36 Dose: 81 mg Atorvastatin Calcium (Atorvastatin 40 Mg Tab) 40 mg PO DAILY [facility] Last Admin: 01/23/24 08:36 Dose: 40 mg Benzocaine/Menthol (Benzocaine/Menthol Lozeng 1 Each Lozenge) 1 each MUCOUS MEM Q2H PRN PRN Reason: Sore Throat Bisacodyl (Bisacodyl 10 Mg Supp) 10 mg RECTAL DAILY PRN PRN Reason: Constipation Cholecalciferol (Cholecalciferol 25 Mcg (1000 Iu) Tablet) 25 mcg PO DAILY [facility] Last Admin: 01/23/24 08:43 Dose: 25 mcg Dextrose/Water (Dextrose 50% Syringe 50 Ml) 25 ml IVP PER PROTOCOL PRN; Protocol PRN Reason: Hypoglycemia Dextrose/Water (Dextrose 50% Syringe 50 Ml) 50 ml IVP PER PROTOCOL PRN; Protocol PRN Reason: Hypoglycemia Dextrose/Water (Dextrose 50% Syringe 50 Ml) 25 ml IVP PER PROTOCOL PRN; Protocol PRN Reason: Hypoglycemia Dextrose/Water (Dextrose 50% Syringe 50 Ml) 50 ml IVP PER PROTOCOL PRN; Protocol PRN Reason: Hypoglycemia Ferrous Sulfate (Ferrous Sulfate 325 Mg Tab) 325 mg PO BID-W/MEALS [facility] Last Admin: 01/23/24 07:09 Dose: 325 mg Fondaparinux (Fondaparinux 2.5 Mg/0.5 Ml Syringe) 2.5 mg SQ DAILY KUN Amiodarone HCl 150 mg/ (Dextrose/Water) 103 mls @ 618 mls/hr IV .Q10M PRN; Protocol PRN Reason: A.FIB/FLUTTER Amiodarone HCl 360 mg/ (Dextrose/Water) 207.2 mls @ 34.533 mls/hr IV .Q6H PRN; Protocol PRN Reason: A.FIB/FLUTTER Amiodarone HCl 450 mg/ (Dextrose/Water) 250 mls @ 16.667 mls/hr IV .Q15H PRN; Protocol PRN Reason: A.FIB/FLUTTER Albumin Human 250 ml/ IV (Solution) 250 mls @ 250 mls/hr IVPB Q1HR PRN; Protocol PRN Reason: For Volume Stop: 01/24/24 12:15 Last Admin: 01/23/24 03:21 Dose: 250 mls/hr Lactated Ringer's (Lactated Ringers) 1,000 mls @ 20 mls/hr IV .Q24H [facility] Last Admin: 01/22/24 12:30 Dose: 50 mls/hr Calcium Gluconate/Sodium (Chloride 2 gm/ IV Solution) 100 mls @ 100 mls/hr IVPB ONCE PRN PRN Reason: Ionized Calcium less than 4.4 Stop: 02/01/24 12:15 Insulin Aspart (Insulin Aspart (Novolog) 100 Unit/Ml Vial) 0 unit SQ ACHS KUN; Protocol Insulin Detemir (Insulin Detemir (Levemir) 100 Unit/Ml Syr) 10 unit SQ ANSHUL LY@0700 [facility] Magnesium Hydroxide (Magnesium Hydroxide 2,400 Mg/30 Ml Cup) 2,400 mg PO BID PRN PRN Reason: Constipation Metoclopramide HCl (Metoclopramide 5 Mg/Ml 2 Ml Vial) 10 mg IVP Q4H PRN PRN Reason: Nausea And Vomiting Last Admin: 01/23/24 05:50 Dose: 10 mg Metoprolol Tartrate (Metoprolol Tartrate 12.5 Mg Tab) 12.5 mg PO BID [facility] Last Admin: 01/23/24 08:36 Dose: 12.5 mg Miscellaneous Information (Potassium Replacement Protocol 1 Each Misc) 1 each MISCELLANE DAILY PRN; Protocol PRN Reason: Per Protocol Miscellaneous Information (Magnesium Replacement Protocol 1 Each Misc) 1 each MISCELLANE DAILY PRN; Protocol PRN Reason: Per Protocol Ondansetron HCl (Ondansetron 4 Mg/2 Ml Vial) 4 mg IVP Q6HR PRN PRN Reason: Nausea And Vomiting Last Admin: 01/23/24 05:30 Dose: 4 mg Oxycodone HCl (Oxycodone Hcl 5 Mg Tab) 5 mg PO Q4HR PRN PRN Reason: Moderate Pain (Scale 4 to 6) Oxycodone HCl (Oxycodone Hcl 5 Mg Tab) 10 mg PO Q4HR PRN PRN Reason: Severe Pain (Scale 7 to 10) Last Admin: 01/23/24 02:33 Dose: 10 mg Pantoprazole Sodium (Pantoprazole 40 Mg/10 Ml Vial) 40 mg IVP DAILY [facility] Stop: 01/23/24 10:00 Last Admin: 01/23/24 08:36 Dose: 40 mg Pantoprazole Sodium (Pantoprazole 40 Mg Tablet) 40 mg PO AC-BRKFST [facility] Senna/Docusate Sodium (Sennosides-Docusate Sodium 1 Each Tab) 2 each PO HS [facility] Last Admin: 01/22/24 20:11 Dose: 2 each Sodium Chloride (Sodium Chloride 0.9% Flush 10 Ml Syringe) 10 ml IV BID [facility] Last Admin: 01/23/24 08:37 Dose: 10 ml Social history: No smoking no alcohol Physical examination: VITAL SIGNS: 82, 21, 100/42, 94% GENERAL: In a recliner. Tired.. 1 right 1 left pleural chest tube and 1 mediastinal chest tube EYES: Pupils equal. Conjunctiva marvin l. HEENT: [External appearance of nose and ears normal, oral cavity endotracheal tube NECK: JVD unable to assess; masses not palpable. HEART: First and second heart sounds are normal; no edema. LUNGS: Respiratory rate increased l; decreased breath sounds ABDOMEN: Soft, nontender, liver spleen not palpable, no masses palpable. PSYCH: Alert and oriented x3; mood and affect marvin l. MUSCULOSKELETAL:No Clubbing/cyanosis;muscles-grossly intact. NEUROLOGICAL: Cranial nerves grossly intact; no facial asymmetry, power and sensation grossly intact. INVESTIGATIONS, reviewed in the clinical context: January 22: White count 6.4 hemoglobin 7.4 platelets 64 potassium 4.1 creatinine 0.59 January 22, 2024: White count 9.5 hemoglobin 10 platelets 119 sodium 137 potassium 4.1 creatinine 0.51 albumin 2.8 Previous labs: White count 4.8 hemoglobin 13.3 platelets 217 albumin 4.1 Cardiac catheterization: Normal coronaries KAROL: Bicuspid aortic valve. Area 0.6 cm Assessment plan: -Status post aortic valve repair for severe arctic stenosis -Acute ventilator support, postanesthesia for surgery-extubated January 22 -Sedation with IV propofol-discontinued -Acute postprocedure blood loss anemia expected from surgery: Some worsening Follow H&H IV Ferrlecit -Acute dilutional postprocedure thrombocytopenia, follow -Primary osteoarthritis -Kidney stones, asymptomatic -History of gastric sleeve surgery Further drop in hemoglobin. IV Ferrlecit. Follow H&H. Thank you Dr. Carlisle Past Medical History Past Medical History: Osteoarthritis (OA) Additional Past Medical History / Comment(s): heart murmur,Aortic stenosis, Covid Aug 2023,kidney stones History of Any Multi-Drug Resistant Organisms: None Reported Past Surgical History: Bariatric Surgery, Cholecystectomy, Hysterectomy, Joint Replacement Additional Past Surgical History / Comment(s): gastric sleeve surgery, rt knee replacement,keely cataracts,partial hyst Past Anesthesia/Blood Transfusion Reactions: No Reported Reaction Additional Past Anesthesia/Blood Transfusion Reaction / Comm: no hx blood transfusion Past Psychological History: No Psychological Hx Reported Smoking Status: Never smoker Past Alcohol Use History: None Reported Past Drug Use History: None Reported
[2024-01-23 10:01] LABS: Glucose,Whole Blood 138 mg/dL (70-110)
[2024-01-23] MEDS: FONDAPARINUX 2.5 MG/0.5 ML SYRINGE SQ SCH (10:04)
[2024-01-23] MEDS: INSULIN DETEMIR (LEVEMIR) 100 UNIT/ML SYR SQ SCH (10:05)
[2024-01-23 11:17] LABS: Glucose,Whole Blood 133 mg/dL (70-110)
[2024-01-23] MEDS: INSULIN ASPART (NovoLOG) 100 UNIT/ML VIAL SQ SCH (11:58)
[2024-01-23] MEDS: SODIUM FERRIC GLUCONAT-SUCROSE 125 MG in SODIUM CHLORIDE 0.9% 100 ML IVPB SCH (12:12)
[2024-01-23 12:36] VITALS: BMI 29.2
--- NOTE | 2024-01-23 12:49 | P.PN ---
Subjective Progress Note Date: 01/23/24 Principal diagnosis: POD #1 aortic valve replacement using a 21 mm Lynch Inspiris bioprosthetic valve, This is a 73-year-old female patient with a known history of nephrolithiasis hyperlipidemia arthritis and bicuspid aortic valve stenosis. She was brought in electively today for an aortic valve replacement. She is seen today in consultation in the intensive care unit. She is currently intubated on the mechanical ventilator on assist-control mode at a rate of 20, tidal volume 400, FiO2 treated down to 40% and a PEEP of 5. Cardiac output 4.4. Cardiac index 2.4. PA pressures 20/12. CVP 7. X-ray reveals postoperative changes with some basilar atelectasis. Endotracheal and nasogastric tubes in good position. White count 13.8. Hemoglobin 10.5. Platelets 138. INR 1.3. Sodium 137. Potassium 4.1. Bicarb 23. BUN 12. Creatinine 0.51. Glucose 123. Right and left, mediastinal chest tubes in good position. Pacer wires in place with backup pacing at 80 bpm. Right IJ [place]Uzma catheter in place. Left brachial arterial line in place. Heart hugger in place. Patient was reevaluated today on 01/23/24, patient is now postoperative day #1, sitting at bedside recliner, not in any distress, patient is on room air, she was extubated uneventfully LAR yesterday around 1620 5 PM. Currently in sinus rhythm, hemodynamically stable, not requiring any inotropes or any pressors. Patient has some chest discomfort which is expected, continues to have mediastin al right and left pleural chest tubes in place, and continues to have right internal jugular with [place]-Uzma catheter in place/right IJ, chest x-ray showed mostly postoperative changes, no acute processes noted. Lines and catheters were all noted chest tubes were noted CBC is relatively unremarkable hemoglobin is 7.4 today. And as expected, Basic metabolic profile is normal and renal profile is normal Objective - Vital Signs Vital signs: Vital Signs Temp 99.0 F 01/23/24 12:00 Pulse 87 01/23/24 12:00 Resp 23 01/23/24 12:00 BP 88/45 01/23/24 03:30 Pulse Ox 95 01/23/24 12:00 FiO2 40 01/22/24 16:00 Intake & Output 01/22/24 01/23/24 01/23/24 18:59 06:59 18:59 Intake Total 064.092 1820.631 1066 Output Total 1970 1380 235 Balance -1167.798 433.631 831 Weight 77.2 kg 77.2 kg Intake: IV 772 1708 458 ACETAMINOPHEN IV (For NPO 100 100 ) 1,000 mg In Empty Bag 1 bag @ 400 mls/hr IVPB Q6H KUN Rx#:[id number] Albumin Human 5% 250 ml 750 In Empty Bag 1 bag @ 250 mls/hr IVPB Q1HR PRN Rx#: [id number] CO/CI 200 160 30 Lactated Ringers 1,000 ml 310 590 230 @ 20 mls/hr IV .Q24H KUN Rx#:[id number] Sodium Ferric Gluconat- 100 Sucrose 125 mg In Sodium Chloride 0.9% 100 ml @ 100 mls/hr IVPB DAILY KUN Rx#:[id number] ceFAZolin 2 gm In Sodium 50 50 Chloride 0.9% 50 ml @ 100 mls/hr IVPB Q8HR KUN Rx# :[id number] pressure bags 60 108 48 Intake, IV Titration 30.202 5.631 0 Amount Insulin Regular 100 unit 6.076 5.631 0 In Sodium Chloride 0.9% 100 ml @ Per Protocol IV .Q0M KUN Rx#:[id number] propofoL 1,000 mg In 24.126 Empty Bag 1 bag @ Titrate IV .Q0M KUN Rx#: [id number] Oral 100 608 Output: Chest Tube Drainage 450 950 110 Left 140 260 50 Mediastinal 200 180 20 Right 110 510 40 Urine 920 430 125 Estimated Blood Loss 600 Other: Voiding Method Indwelling Catheter Indwelling Catheter ABP, PAP, CO, CI - Last Documented Arterial Blood Pressure 135/43 Pulmonary Artery Pressure 16/4 Cardiac Output 5.2 Cardiac Index 2.8 - Exam GENERAL EXAM: Reveals 74-year-old female on room air, in no distress HEAD: Normocephalic. Atraumatic EYES: Normal reaction of pupils, equal size. NOSE: Clear with pink turbinates. THROAT: No erythema or exudates. NECK: No masses, no JVD. Right IJ [place]-Uzma catheter in place CHEST: General dressing dry and intact. Right, left, mediastinal chest tubes in place, pacer wires in place LUNGS: Clear bilaterally no rhonchi no wheezes CVS: S1 and S2 normal 6 systolic murmur throughout the precordium, regular rhythm. ABDOMEN: No hepatosplenomegaly, normal bowel sounds, no guarding or rigidity. SKIN: No rashes CENTRAL NERVOUS SYSTEM: Alert and oriented x 3 no gross focal deficit EXTREMITIES: No clubbing edema or cyanosis - Labs CBC & Chem 7: 01/23/24 03:35 01/23/24 03:35 Labs: Abnormal Lab Results - Last 24 Hours (Table) 01/22/24 01/22/24 01/22/24 Range/Units 12:31 12:31 12:31 WBC 11.5 H (3.8-10.6) k/uL RBC 3.47 L (3.80-5.40) m/uL Hgb 10.0 L (11.4-16.0) gm/dL Hct 30.6 L (34.0-46.0) % Plt Count 119 L (150-450) k/uL Neutrophils # 9.9 H (1.3-7.7) k/uL Lymphocytes # 0.9 L (1.0-4.8) k/uL PT 13.8 H (10.0-12.5) sec INR 1.3 H (<1.2) APTT 30.7 H (22.0-30.0) sec ABG pO2 (83-108) mmHg ABG Total CO2 (19-24) mmol/L ABG O2 Saturation (94-97) % Chloride 110 H (98-107) mmol/L Carbon Dioxide (22-30) mmol/L Creatinine 0.51 L (0.52-1.04) mg/dL Glucose 123 H (74-99) mg/dL POC Glucose (mg/dL) (70-110) mg/dL Calcium 7.9 L (8.4-10.2) mg/dL Magnesium 2.7 H (1.6-2.3) mg/dL AST 53 H (14-36) U/L Alkaline Phosphatase (38-126) U/L Total Protein 4.8 L (6.3-8.2) g/dL Albumin 2.8 L (3.5-5.0) g/dL 01/22/24 01/22/24 01/22/24 Range/Units 12:50 13:15 14:09 WBC (3.8-10.6) k/uL RBC (3.80-5.40) m/uL Hgb (11.4-16.0) gm/dL Hct (34.0-46.0) % Plt Count (150-450) k/uL Neutrophils # (1.3-7.7) k/uL Lymphocytes # (1.0-4.8) k/uL PT (10.0-12.5) sec INR (<1.2) APTT (22.0-30.0) sec ABG pO2 >400 H (83-108) mmHg ABG Total CO2 26 H (19-24) mmol/L ABG O2 Saturation 99.4 H (94-97) % Chloride (98-107) mmol/L Carbon Dioxide (22-30) mmol/L Creatinine (0.52-1.04) mg/dL Glucose (74-99) mg/dL POC Glucose (mg/dL) 143 H 130 H (70-110) mg/dL Calcium (8.4-10.2) mg/dL Magnesium (1.6-2.3) mg/dL AST (14-36) U/L Alkaline Phosphatase (38-126) U/L Total Protein (6.3-8.2) g/dL Albumin (3.5-5.0) g/dL 01/22/24 01/22/24 01/22/24 Range/Units 15:07 15:30 16:24 WBC 13.8 H (3.8-10.6) k/uL RBC 3.56 L (3.80-5.40) m/uL Hgb 10.5 L (11.4-16.0) gm/dL Hct 31.3 L (34.0-46.0) % Plt Count 138 L (150-450) k/uL Neutrophils # 12.0 H (1.3-7.7) k/uL Lymphocytes # 0.6 L (1.0-4.8) k/uL PT (10.0-12.5) sec INR (<1.2) APTT (22.0-30.0) sec ABG pO2 170 H (83-108) mmHg ABG Total CO2 26 H (19-24) mmol/L ABG O2 Saturation 98.8 H (94-97) % Chloride (98-107) mmol/L Carbon Dioxide (22-30) mmol/L Creatinine (0.52-1.04) mg/dL Glucose (74-99) mg/dL POC Glucose (mg/dL) 125 H (70-110) mg/dL Calcium (8.4-10.2) mg/dL Magnesium (1.6-2.3) mg/dL AST (14-36) U/L Alkaline Phosphatase (38-126) U/L Total Protein (6.3-8.2) g/dL Albumin (3.5-5.0) g/dL 01/22/24 01/22/24 01/22/24 Range/Units 16:33 17:52 18:25 WBC (3.8-10.6) k/uL RBC (3.80-5.40) m/uL Hgb (11.4-16.0) gm/dL Hct (34.0-46.0) % Plt Count (150-450) k/uL Neutrophils # (1.3-7.7) k/uL Lymphocytes # (1.0-4.8) k/uL PT (10.0-12.5) sec INR (<1.2) APTT 33.6 H (22.0-30.0) sec ABG pO2 (83-108) mmHg ABG Total CO2 (19-24) mmol/L ABG O2 Saturation (94-97) % Chloride (98-107) mmol/L Carbon Dioxide (22-30) mmol/L Creatinine (0.52-1.04) mg/dL Glucose (74-99) mg/dL POC Glucose (mg/dL) 128 H 124 H (70-110) mg/dL Calcium (8.4-10.2) mg/dL Magnesium (1.6-2.3) mg/dL AST (14-36) U/L Alkaline Phosphatase (38-126) U/L Total Protein (6.3-8.2) g/dL Albumin (3.5-5.0) g/dL 01/22/24 01/22/24 01/22/24 Range/Units 18:25 18:50 18:53 WBC (3.8-10.6) k/uL RBC 3.06 L 3.12 L (3.80-5.40) m/uL Hgb 8.8 L D 9.0 L (11.4-16.0) gm/dL Hct 27.3 L 27.6 L (34.0-46.0) % Plt Count 117 L 105 L (150-450) k/uL Neutrophils # 8.4 H (1.3-7.7) k/uL Lymphocytes # 0.3 L (1.0-4.8) k/uL PT (10.0-12.5) sec INR (<1.2) APTT (22.0-30.0) sec ABG pO2 (83-108) mmHg ABG Total CO2 (19-24) mmol/L ABG O2 Saturation (94-97) % Chloride (98-107) mmol/L Carbon Dioxide (22-30) mmol/L Creatinine (0.52-1.04) mg/dL Glucose (74-99) mg/dL POC Glucose (mg/dL) 119 H (70-110) mg/dL Calcium (8.4-10.2) mg/dL Magnesium (1.6-2.3) mg/dL AST (14-36) U/L Alkaline Phosphatase (38-126) U/L Total Protein (6.3-8.2) g/dL Albumin (3.5-5.0) g/dL 01/22/24 01/22/24 01/22/24 Range/Units 19:54 21:01 22:04 WBC (3.8-10.6) k/uL RBC (3.80-5.40) m/uL Hgb (11.4-16.0) gm/dL Hct (34.0-46.0) % Plt Count (150-450) k/uL Neutrophils # (1.3-7.7) k/uL Lymphocytes # (1.0-4.8) k/uL PT (10.0-12.5) sec INR (<1.2) APTT (22.0-30.0) sec ABG pO2 (83-108) mmHg ABG Total CO2 (19-24) mmol/L ABG O2 Saturation (94-97) % Chloride (98-107) mmol/L Carbon Dioxide (22-30) mmol/L Creatinine (0.52-1.04) mg/dL Glucose (74-99) mg/dL POC Glucose (mg/dL) 128 H 123 H 127 H (70-110) mg/dL Calcium (8.4-10.2) mg/dL Magnesium (1.6-2.3) mg/dL AST (14-36) U/L Alkaline Phosphatase (38-126) U/L Total Protein (6.3-8.2) g/dL Albumin (3.5-5.0) g/dL 01/22/24 01/23/24 01/23/24 Range/Units 22:58 00:03 01:01 WBC (3.8-10.6) k/uL RBC (3.80-5.40) m/uL Hgb (11.4-16.0) gm/dL Hct (34.0-46.0) % Plt Count (150-450) k/uL Neutrophils # (1.3-7.7) k/uL Lymphocytes # (1.0-4.8) k/uL PT (10.0-12.5) sec INR (<1.2) APTT (22.0-30.0) sec ABG pO2 (83-108) mmHg ABG Total CO2 (19-24) mmol/L ABG O2 Saturation (94-97) % Chloride (98-107) mmol/L Carbon Dioxide (22-30) mmol/L Creatinine (0.52-1.04) mg/dL Glucose (74-99) mg/dL POC Glucose (mg/dL) 126 H 124 H 117 H (70-110) mg/dL Calcium (8.4-10.2) mg/dL Magnesium (1.6-2.3) mg/dL AST (14-36) U/L Alkaline Phosphatase (38-126) U/L Total Protein (6.3-8.2) g/dL Albumin (3.5-5.0) g/dL 01/23/24 01/23/24 01/23/24 Range/Units 02:05 03:04 03:33 WBC (3.8-10.6) k/uL RBC (3.80-5.40) m/uL Hgb (11.4-16.0) gm/dL Hct (34.0-46.0) % Plt Count (150-450) k/uL Neutrophils # (1.3-7.7) k/uL Lymphocytes # (1.0-4.8) k/uL PT (10.0-12.5) sec INR (<1.2) APTT (22.0-30.0) sec ABG pO2 (83-108) mmHg ABG Total CO2 (19-24) mmol/L ABG O2 Saturation (94-97) % Chloride (98-107) mmol/L Carbon Dioxide (22-30) mmol/L Creatinine (0.52-1.04) mg/dL Glucose (74-99) mg/dL POC Glucose (mg/dL) 116 H 115 H 122 H (70-110) mg/dL Calcium (8.4-10.2) mg/dL Magnesium (1.6-2.3) mg/dL AST (14-36) U/L Alkaline Phosphatase (38-126) U/L Total Protein (6.3-8.2) g/dL Albumin (3.5-5.0) g/dL 01/23/24 01/23/24 01/23/24 Range/Units 03:35 03:35 04:54 WBC (3.8-10.6) k/uL RBC 2.50 L (3.80-5.40) m/uL Hgb 7.4 L D (11.4-16.0) gm/dL Hct 22.5 L (34.0-46.0) % Plt Count 64 L (150-450) k/uL Neutrophils # (1.3-7.7) k/uL Lymphocytes # 0.5 L (1.0-4.8) k/uL PT (10.0-12.5) sec INR (<1.2) APTT (22.0-30.0) sec ABG pO2 (83-108) mmHg ABG Total CO2 (19-24) mmol/L ABG O2 Saturation (94-97) % Chloride 110 H (98-107) mmol/L Carbon Dioxide 19 L (22-30) mmol/L Creatinine (0.52-1.04) mg/dL Glucose 105 H (74-99) mg/dL POC Glucose (mg/dL) 116 H (70-110) mg/dL Calcium 8.0 L (8.4-10.2) mg/dL Magnesium (1.6-2.3) mg/dL AST 39 H (14-36) U/L Alkaline Phosphatase 37 L (38-126) U/L Total Protein 5.2 L (6.3-8.2) g/dL Albumin (3.5-5.0) g/dL 01/23/24 01/23/24 01/23/24 Range/Units 06:00 07:00 08:24 WBC (3.8-10.6) k/uL RBC (3.80-5.40) m/uL Hgb (11.4-16.0) gm/dL Hct (34.0-46.0) % Plt Count (150-450) k/uL Neutrophils # (1.3-7.7) k/uL Lymphocytes # (1.0-4.8) k/uL PT (10.0-12.5) sec INR (<1.2) APTT (22.0-30.0) sec ABG pO2 (83-108) mmHg ABG Total CO2 (19-24) mmol/L ABG O2 Saturation (94-97) % Chloride (98-107) mmol/L Carbon Dioxide (22-30) mmol/L Creatinine (0.52-1.04) mg/dL Glucose (74-99) mg/dL POC Glucose (mg/dL) 121 H 111 H 146 H (70-110) mg/dL Calcium (8.4-10.2) mg/dL Magnesium (1.6-2.3) mg/dL AST (14-36) U/L Alkaline Phosphatase (38-126) U/L Total Protein (6.3-8.2) g/dL Albumin (3.5-5.0) g/dL 01/23/24 01/23/24 Range/Units 10:00 11:16 WBC (3.8-10.6) k/uL RBC (3.80-5.40) m/uL Hgb (11.4-16.0) gm/dL Hct (34.0-46.0) % Plt Count (150-450) k/uL Neutrophils # (1.3-7.7) k/uL Lymphocytes # (1.0-4.8) k/uL PT (10.0-12.5) sec INR (<1.2) APTT (22.0-30.0) sec ABG pO2 (83-108) mmHg ABG Total CO2 (19-24) mmol/L ABG O2 Saturation (94-97) % Chloride (98-107) mmol/L Carbon Dioxide (22-30) mmol/L Creatinine (0.52-1.04) mg/dL Glucose (74-99) mg/dL POC Glucose (mg/dL) 138 H 133 H (70-110) mg/dL Calcium (8.4-10.2) mg/dL Magnesium (1.6-2.3) mg/dL AST (14-36) U/L Alkaline Phosphatase (38-126) U/L Total Protein (6.3-8.2) g/dL Albumin (3.5-5.0) g/dL Assessment and Plan Assessment: Impression: Symptomatic bicuspid aortic valve stenosis. Status post aortic valve replacement. Postoperative day #1 History of nephrolithiasis Hyperlipidemia Arthritis Recommendation: Continue maximal therapy including low-dose aspirin beta-blockers statin Ambulate as early as possible Continue incentive spirometry Pain control with current medications Discontinue unnecessary catheters and tubes as soon as possible if not felt to be necessary Continue [place] catheter for the next 24 hours Will continue to follow Time with Patient: Less than 30
--- NOTE | 2024-01-23 13:50 | XR ---
EXAMINATION TYPE: XR chest 1V portable DATE OF EXAM: 01/23/2024 COMPARISON: 01/22/2024 INDICATION: Post cardiac surgery TECHNIQUE: Single frontal view of the chest is obtained. FINDINGS: The heart size is normal. The pulmonary vasculature is normal. Mild infiltrates in the left midlung. Correlate for atelectasis. Findings are improving. [place]zma catheter is present with tip in the main pulmonary artery region. Epicardial leads are evid ent. Left-sided chest tube is present. Mediastinal tube is present. A right-sided chest tube is prese nt. Sternotomy wires are present. IMPRESSION: 1. Minimal atelectatic type changes left mid lung, improving from comparison. 2. Multiple lines and catheters discussed above
[2024-01-23 16:25] LABS: Glucose,Whole Blood 174 mg/dL (70-110)
[2024-01-23 20:01] LABS: Glucose,Whole Blood 161 mg/dL (70-110)
--- NOTE | 2024-01-23 20:46 | P.CRDCN ---
History of Present Illness Consult date: 01/23/24 History of present illness: HISTORY OF PRESENTING ILLNESS 73-year-old with history of severe aortic stenosis with bicuspid aortic valve, hypertension, dyslipidemia, underwent surgical aortic valve replacement with 21 mm Lynch Inspira bioprosthetic aortic valve, ligation of left atrial appendage with 35mm atrial clip. Patient is currently monitored in ICU. She tolerated the procedure well. She has 3 chest tubes, temporary pacemaker, IJ catheter is in place. Hickory-Uzma catheter was removed this morning. She is hemodynamically stable. No arrhythmias noted on telemetry so far. REVIEW OF SYSTEMS 14 point review of system is negative except what is mentioned above in HPI. PHYSICAL EXAMINATION Lungs: Diminished breath sounds pulm slightly effort, [address], 1 mediastinal, 1 chest tube bilateral, Heart: Regular rate and rhythm, mild systolic murmur audible in aortic area. Abdomen: Soft nontender, Extremities: No edema, Neuro: Alert, oritented, no focal deficits. Detailed neuro exam was not performed. ASSESSMENT Severe bicuspid aortic stenosis s/p Lynch Inspira 21 mm surgical aortic valve replacement Atrial clip ligation Dyslipidemia PLAN Continue to monitor hemodynamics. Continue aspirin, statin, low-dose beta-dora. Cardiology team will continue to follow-up. At this time patient does not appear volume overloaded. Will evaluate the patient on day-to-day basis. Clint Ross MD, FACC, RPVI Thank you for allowing [facility] to participate in this patient's care. Feel free to reach out in case of any followup questions. Past Medical History Past Medical History: Osteoarthritis (OA) Additional Past Medical History / Comment(s): heart murmur,Aortic stenosis, Covid Aug 2023,kidney stones History of Any Multi-Drug Resistant Organisms: None Reported Past Surgical History: Bariatric Surgery, Cholecystectomy, Hysterectomy, Joint Replacement Additional Past Surgical History / Comment(s): gastric sleeve surgery, rt knee replacement,keely cataracts,partial hyst Past Anesthesia/Blood Transfusion Reactions: No Reported Reaction Additional Past Anesthesia/Blood Transfusion Reaction / Comment(s): no hx blood transfusion Past Psychological History: No Psychological Hx Reported Smoking Status: Never smoker Past Alcohol Use History: None Reported Past Drug Use History: None Reported - Past Family History Father Additional Family Medical History / Comment(s): aortic valve replaced Sister(s) Additional Family Medical History / Comment(s): aortic valve replaced Medications and Allergies Home Medications Medication Instructions Recorded Confirmed Type Cholecalciferol [Vitamin D3] 1,000 unit PO DAILY 11/29/17 01/22/24 History Vitamin B Complex 1 cap PO DAILY 11/29/17 01/22/24 History traMADol HCL [Ultram] 50 mg PO DAILY PRN 11/29/17 01/22/24 History Aspirin 81 mg PO DAILY 10/12/23 01/22/24 History Acetaminophen [Tylenol Extra 500 mg PO Q8H PRN 01/11/24 01/22/24 History Strength] Ascorbic Acid [Vitamin C] 1,500 mg PO DAILY 01/11/24 01/22/24 History Melatonin 3 mg PO HS PRN 01/21/24 01/22/24 History Allergies Allergy/AdvReac Type Severity Reaction Status Date / Time No Known Allergies Allergy Verified 01/22/24 06:27 Physical Exam Vitals: Vital Signs Temp Pulse Resp BP Pulse Ox 01/23/24 19:00 82 7 L 90 L 01/23/24 18:30 84 11 L 91 L 01/23/24 18:00 85 16 90 L 01/23/24 17:30 81 5 L 91 L 01/23/24 17:00 85 6 L 89 L 01/23/24 16:30 79 5 L 92 L 01/23/24 16:00 99.0 F 78 4 L 92 L 01/23/24 15:31 83 10 L 01/23/24 15:00 79 19 94 L 01/23/24 14:30 80 19 01/23/24 14:00 85 27 H 95 01/23/24 13:30 83 18 01/23/24 13:00 87 18 94 L 01/23/24 12:30 87 30 H 94 L 01/23/24 12:00 99.0 F 87 23 95 01/23/24 11:48 82 01/23/24 11:38 80 01/23/24 11:30 78 20 93 L 01/23/24 11:00 77 21 93 L 01/23/24 10:30 75 19 94 L 01/23/24 10:00 76 19 92 L 01/23/24 09:45 79 21 94 L 01/23/24 09:30 79 19 93 L 01/23/24 09:15 80 19 95 01/23/24 09:00 81 17 94 L 01/23/24 08:45 85 22 95 01/23/24 08:30 82 20 95 01/23/24 08:15 82 19 96 01/23/24 08:00 100.4 F H 82 20 94 L 01/23/24 07:45 84 15 96 01/23/24 07:30 82 19 96 01/23/24 07:15 80 17 93 L 01/23/24 07:00 82 21 94 L 01/23/24 06:45 84 18 95 01/23/24 06:30 83 19 96 01/23/24 06:15 83 19 93 L 01/23/24 06:00 84 20 92 L 01/23/24 05:45 13 93 L 01/23/24 05:30 88 17 92 L 01/23/24 05:15 86 17 93 L 01/23/24 05:00 84 18 92 L 01/23/24 04:45 82 17 94 L 01/23/24 04:30 86 19 94 L 01/23/24 04:15 85 16 90 L 01/23/24 04:00 83 19 90 L 01/23/24 03:45 84 17 91 L 01/23/24 03:30 82 17 88/45 91 L 01/23/24 03:15 83 19 91 L 01/23/24 03:00 82 16 92 L 01/23/24 02:45 81 12 95 01/23/24 02:30 84 14 98 01/23/24 02:15 82 15 99 01/23/24 02:00 82 18 97 01/23/24 01:45 83 17 98/50 98 01/23/24 01:30 84 18 94 L 01/23/24 01:15 82 17 93 L 01/23/24 01:00 82 17 93 L 01/23/24 00:45 85 17 101/48 93 L 01/23/24 00:30 85 18 93 L 01/23/24 00:15 84 17 93 L 01/23/24 00:00 85 18 93 L 01/22/24 23:45 85 18 93 L 01/22/24 23:30 86 18 93 L 01/22/24 23:15 85 18 94 L 01/22/24 23:00 86 18 96 01/22/24 22:45 87 20 96 01/22/24 22:30 82 19 95 01/22/24 22:15 86 21 94 L 01/22/24 22:00 87 19 96 01/22/24 21:45 88 17 97 01/22/24 21:30 86 18 96 01/22/24 21:23 88 01/22/24 21:15 82 17 100 01/22/24 21:14 83 01/22/24 21:00 84 15 100 Intake and Output 01/23/24 01/23/24 01/23/24 06:59 14:59 22:59 Intake Total 1355.56 1118 498 Output Total 730 280 300 Balance 625.56 838 198 Intake: IV 1352 510 380 Albumin Human 5% 250 ml 750 250 In Empty Bag 1 bag @ 250 mls/hr IVPB Q1HR PRN Rx#: [id number] CO/CI 130 30 Lactated Ringers 1,000 ml 400 270 100 @ 20 mls/hr IV .Q24H [facility] Rx#:[id number] Sodium Ferric Gluconat- 100 Sucrose 125 mg In Sodium Chloride 0.9% 100 ml @ 100 mls/hr IVPB DAILY [facility] Rx#:[id number] ceFAZolin 2 gm In Sodium 50 Chloride 0.9% 50 ml @ 100 mls/hr IVPB Q8HR [facility] Rx# :[id number] pressure bags 72 60 30 Intake, IV Titration 3.56 0 Amount Insulin Regular 100 unit 3.56 0 In Sodium Chloride 0.9% 100 ml @ Per Protocol IV .Q0M [facility] Rx#:[id number] Oral 608 118 Output: Chest Tube Drainage 490 110 210 Left 160 50 30 Mediastinal 80 20 80 Right 250 40 100 Urine 240 170 90 Other: Voiding Method Indwelling Catheter Indwelling Catheter Indwelling Catheter Weight 77.2 kg 77.2 kg ABP, PAP, CO, CI - Last 8 Hours Arterial Blood Pressure 108/59 Arterial Blood Pressure 86/49 Arterial Blood Pressure 99/50 Arterial Blood Pressure 109/45 Arterial Blood Pressure 128/54 Arterial Blood Pressure 135/47 Arterial Blood Pressure 123/41 Arterial Blood Pressure 122/49 Arterial Blood Pressure 120/41 Arterial Blood Pressure 119/42 Arterial Blood Pressure 117/41 Arterial Blood Pressure 114/41 Results 01/23/24 03:35 01/23/24 03:35 Cardiac Enzymes 01/23/24 Range/Units 03:35 AST 39 H (14-36) U/L Coagulation 01/22/24 Range/Units 18:25 PT 12.3 (10.0-12.5) sec APTT 33.6 H (22.0-30.0) sec CBC 01/22/24 01/22/24 01/23/24 Range/Units 18:25 18:50 03:35 WBC 9.1 9.2 6.4 (3.8-10.6) k/uL RBC 3.06 L 3.12 L 2.50 L (3.80-5.40) m/uL Hgb 8.8 L D 9.0 L 7.4 L D (11.4-16.0) gm/dL Hct 27.3 L 27.6 L 22.5 L (34.0-46.0) % Plt Count 117 L 105 L 64 L (150-450) k/uL Comprehensive Metabolic Panel 01/23/24 Range/Units 03:35 Sodium 139 (137-145) mmol/L Potassium 4.1 (3.5-5.1) mmol/L Chloride 110 H (98-107) mmol/L Carbon Dioxide 19 L (22-30) mmol/L BUN 13 (7-17) mg/dL Creatinine 0.59 (0.52-1.04) mg/dL Glucose 105 H (74-99) mg/dL Calcium 8.0 L (8.4-10.2) mg/dL AST 39 H (14-36) U/L ALT 12 (4-34) U/L Alkaline Phosphatase 37 L (38-126) U/L Total Protein 5.2 L (6.3-8.2) g/dL Albumin 3.6 (3.5-5.0) g/dL Current Medications Generic Name Dose Route Start Last Admin Trade Name Freq PRN Reason Stop Dose Admin Acetaminophen 650 mg 01/23/24 06:35 Acetaminophen Tab 325 Mg Tab PO Q4HR PRN Fever and/ or Pain Albuterol/Ipratropium 3 ml 01/22/24 12:14 Ipratropium-Albuterol 3 Ml Neb INHALATION RT-Q2H PRN Shortness Of Breath Or Wheezing Albuterol/Ipratropium 3 ml 01/22/24 20:00 01/23/24 15:57 Ipratropium-Albuterol 3 Ml Neb INHALATION Not Given RT-QID KUN Ascorbic Acid 1,500 mg 01/23/24 09:00 01/23/24 08:36 Ascorbic Acid 500 Mg Tab PO 1,500 mg DAILY KUN Administration Aspirin 81 mg 01/23/24 09:00 01/23/24 08:36 Aspirin 81 Mg PO 81 mg DAILY KUN Administration Atorvastatin Calcium 40 mg 01/23/24 09:00 01/23/24 08:36 Atorvastatin 40 Mg Tab PO 40 mg DAILY KUN Administration Benzocaine/Menthol 1 each 01/22/24 12:14 Benzocaine/Menthol Lozeng 1 Each Lozenge MUCOUS MEM Q2H PRN Sore Throat Bisacodyl 10 mg 01/23/24 09:00 Bisacodyl 10 Mg Supp RECTAL DAILY PRN Constipation Cholecalciferol 25 mcg 01/23/24 09:00 01/23/24 08:43 Cholecalciferol 25 Mcg (1000 Iu) Tablet PO 25 mcg DAILY KUN Administration Dextrose/Water 25 ml 01/22/24 12:14 Dextrose 50% Syringe 50 Ml IVP PER PROTOCOL PRN Hypoglycemia Protocol Dextrose/Water 50 ml 01/22/24 12:14 Dextrose 50% Syringe 50 Ml IVP PER PROTOCOL PRN Hypoglycemia Protocol Dextrose/Water 25 ml 01/23/24 09:13 Dextrose 50% Syringe 50 Ml IVP PER PROTOCOL PRN Hypoglycemia Protocol Dextrose/Water 50 ml 01/23/24 09:13 Dextrose 50% Syringe 50 Ml IVP PER PROTOCOL PRN Hypoglycemia Protocol Ferrous Sulfate 325 mg 01/23/24 07:30 01/23/24 17:06 Ferrous Sulfate 325 Mg Tab PO 325 mg BID-W/MEALS KUN Administration Fondaparinux 2.5 mg 01/23/24 09:00 01/23/24 10:04 Fondaparinux 2.5 Mg/0.5 Ml Syringe SQ 2.5 mg DAILY KUN Administration Amiodarone HCl 150 mg/ 103 mls @ 618 mls/hr 01/22/24 12:14 Dextrose/Water IV .Q10M PRN A.FIB/FLUTTER Protocol Amiodarone HCl 360 mg/ 207.2 mls @ 34.533 mls/hr 01/22/24 12:14 Dextrose/Water IV .Q6H PRN A.FIB/FLUTTER Protocol 1 MG/MIN Amiodarone HCl 450 mg/ 250 mls @ 16.667 mls/hr 01/22/24 12:14 Dextrose/Water IV .Q15H PRN A.FIB/FLUTTER Protocol 0.5 MG/MIN Albumin Human 250 ml/ IV 250 mls @ 250 mls/hr 01/22/24 12:14 01/23/24 18:27 Solution IVPB 01/24/24 12:15 250 mls/hr Q1HR PRN Administration For Volume Protocol Lactated Ringer's 1,000 mls @ 20 mls/hr 01/22/24 12:14 01/23/24 12:13 Lactated Ringers IV 20 mls/hr .Q24H KUN Administration Calcium Gluconate/Sodium 100 mls @ 100 mls/hr 01/22/24 12:14 Chloride 2 gm/ IV Solution IVPB 02/01/24 12:15 ONCE PRN Ionized Calcium less than 4.4 Ferric Sodium Gluconate 125 mg 110 mls @ 100 mls/hr 01/23/24 10:00 01/23/24 12:12 / Sodium Chloride IVPB 01/25/24 10:05 100 mls/hr DAILY KUN Administration Insulin Aspart 0 unit 01/23/24 12:30 01/23/24 20:03 Insulin Aspart (Novolog) 100 Unit/Ml Vial SQ 1 unit ACHS KUN Administration Protocol Insulin Detemir 10 unit 01/23/24 09:13 01/23/24 10:05 Insulin Detemir (Levemir) 100 Unit/Ml Syr SQ 10 unit DAILY@0700 KUN Administration Magnesium Hydroxide 2,400 mg 01/23/24 09:00 Magnesium Hydroxide 2,400 Mg/30 Ml Cup PO BID PRN Constipation Metoclopramide HCl 10 mg 01/22/24 12:14 01/23/24 05:50 Metoclopramide 5 Mg/Ml 2 Ml Vial IVP 10 mg Q4H PRN Administration Nausea And Vomiting Metoprolol Tartrate 12.5 mg 01/23/24 09:00 01/23/24 20:03 Metoprolol Tartrate 12.5 Mg Tab PO 12.5 mg BID KUN Administration Miscellaneous Information 1 each 01/22/24 12:14 Potassium Replacement Protocol 1 Each Misc MISCELLANE DAILY PRN Per Protocol Protocol Miscellaneous Information 1 each 03/29/24 12:14 Magnesium Replacement Protocol 1 Each Misc MISCELLANE DAILY PRN Per Protocol Protocol Ondansetron HCl 4 mg 01/22/24 12:14 01/23/24 05:30 Ondansetron 4 Mg/2 Ml Vial IVP 4 mg Q6HR PRN Administration Nausea And Vomiting Oxycodone HCl 5 mg 01/22/24 12:14 Oxycodone Hcl 5 Mg Tab PO Q4HR PRN Moderate Pain (Scale 4 to 6) Oxycodone HCl 10 mg 01/22/24 12:14 01/23/24 20:04 Oxycodone Hcl 5 Mg Tab PO 10 mg Q4HR PRN Administration Severe Pain (Scale 7 to 10) Pantoprazole Sodium 40 mg 01/24/24 07:30 Pantoprazole 40 Mg Tablet PO [id number] KUN Senna/Docusate Sodium 2 each 01/22/24 21:00 01/23/24 20:04 Sennosides-Docusate Sodium 1 Each Tab PO 2 each HS KUN Administration Sodium Chloride 10 ml 01/22/24 21:00 01/23/24 20:03 Sodium Chloride 0.9% Flush 10 Ml Syringe IV 10 ml BID KUN Administration Intake and Output 01/23/24 01/23/24 01/23/24 06:59 14:59 22:59 Intake Total 1355.56 1118 498 Output Total 730 280 300 Balance 625.56 838 198 Intake: IV 1352 510 380 Albumin Human 5% 250 ml 750 250 In Empty Bag 1 bag @ 250 mls/hr IVPB Q1HR PRN Rx#: [id number] CO/CI 130 30 Lactated Ringers 1,000 ml 400 270 100 @ 20 mls/hr IV .Q24H [facility] Rx#:[id number] Sodium Ferric Gluconat- 100 Sucrose 125 mg In Sodium Chloride 0.9% 100 ml @ 100 mls/hr IVPB DAILY [facility] Rx#:[id number] ceFAZolin 2 gm In Sodium 50 Chloride 0.9% 50 ml @ 100 mls/hr IVPB Q8HR [facility] Rx# :[id number] pressure bags 72 60 30 Intake, IV Titration 3.56 0 Amount Insulin Regular 100 unit 3.56 0 In Sodium Chloride 0.9% 100 ml @ Per Protocol IV .Q0M [facility] Rx#:[id number] Oral 608 118 Output: Chest Tube Drainage 490 110 210 Left 160 50 30 Mediastinal 80 20 80 Right 250 40 100 Urine 240 170 90 Other: Voiding Method Indwelling Catheter Indwelling Catheter Indwelling Catheter Weight 77.2 kg 77.2 kg Patient Weight 01/24/24 06:59 Weight 77.2 kg 01/23/24 03:35 01/23/24 03:35
[2024-01-24 04:35] LABS: Basophils % (A) 0 %; Eosinophils % (A) 0 %; HCT 23.1 % (34.0-46.0); HGB 7.6 gm/dL (11.4-16.0); Lymphocytes # (A) 0.9 k/uL (1.0-4.8); Lymphocytes % (A) 8 %; MCH 29.6 pg (25.0-35.0); MCV 89.7 fL (80.0-100.0); Mean Platelet Volume 10.8; Monocytes # (A) 0.6 k/uL (0-1.0); Monocytes % (A) 6 %; Neutrophils # (A) 9.1 k/uL (1.3-7.7); Neutrophils % (A) 84 %; RBC 2.57 m/uL (3.80-5.40); RDW 14.2 % (11.5-15.5); WBC 10.7 k/uL (3.8-10.6)
[2024-01-24 04:55] LABS: ALT 11 U/L (4-34); AST 38 U/L (14-36); African American GFR (CKD) >90 (>60 ml/min/1.73 sqM); Albumin 3.2 g/dL (3.5-5.0); Alkaline Phosphatase 37 U/L (38-126); Anion Gap 6 mmol/L; Blood Urea Nitrogen 18 mg/dL (7-17); Calcium 8.6 mg/dL (8.4-10.2); Carbon Dioxide 22 mmol/L (22-30); Chloride 109 mmol/L (98-107); Glucose 95 mg/dL (74-99); Non-African American GFR(CKD) 88 (>60 ml/min/1.73 sqM); Sodium 137 mmol/L (137-145); Total Bilirubin 0.8 mg/dL (0.2-1.3); Total Protein 5.1 g/dL (6.3-8.2)
[2024-01-24 05:01] LABS: Platelet Count 89 k/uL (150-450)
[2024-01-24 06:06] LABS: Glucose,Whole Blood 111 mg/dL (70-110)
[2024-01-24] MEDS: PANTOPRAZOLE 40 MG TABLET PO SCH (06:38)
--- NOTE | 2024-01-24 08:15 | P.PN ---
Subjective Progress Note Date: 01/24/24 Principal diagnosis: Severe aortic valve stenosis with bicuspid aortic valve. History of hyperlipidemia, arthritis, lifelong non-smoker, and family history of aortic valve replacement in both father and sister POD #2 aortic valve replacement using a 21 mm Lynch Inspiris bioprosthetic valve, ligation of the left atrial appendage using a 35 mm AtriClip, epiaortic ultrasound and intraoperative transesophageal echocardiogram Postoperative acute blood loss anemia and thrombocytopenia, expected given hemodilution The patient was seen and examined sitting up in recliner at this morning in no acute distress. Currently in sinus rhythm, hemodynamically stable on no inotropes or pressors. Does complain of expected postsurgical chest discomfort which she is tolerating on current medication regimen, denies shortness of breath, states she got good sleep last night and has been up to ambulate already. Right internal jugular cordis, right radial arterial line, mediastinal/right/left pleural chest tubes all remain. Chest x-ray, labs reviewed. No other new concerns. Objective - Vital Signs Vital signs: Vital Signs Temp 98.6 F 01/24/24 04:00 Pulse 85 01/24/24 07:00 Resp 12 01/24/24 07:00 BP 100/49 01/24/24 04:00 Pulse Ox 93 L 01/24/24 07:00 FiO2 40 01/22/24 16:00 Intake & Output 01/23/24 01/24/24 01/24/24 18:59 06:59 18:59 Intake Total 1590 338 Output Total 560 585 Balance 1030 -247 Weight 77.2 kg 81.1 kg Intake: IV 864 338 Albumin Human 5% 250 ml 250 In Empty Bag 1 bag @ 250 mls/hr IVPB Q1HR PRN Rx#: [id number] CO/CI 30 Lactated Ringers 1,000 ml 350 260 @ 20 mls/hr IV .Q24H [facility] Rx#:[id number] Sodium Ferric Gluconat- 100 Sucrose 125 mg In Sodium Chloride 0.9% 100 ml @ 100 mls/hr IVPB DAILY [facility] Rx#:[id number] ceFAZolin 2 gm In Sodium 50 Chloride 0.9% 50 ml @ 100 mls/hr IVPB Q8HR [facility] Rx# :[id number] pressure bags 84 78 Intake, IV Titration 0 Amount Insulin Regular 100 unit 0 In Sodium Chloride 0.9% 100 ml @ Per Protocol IV .Q0M [facility] Rx#:[id number] Oral 726 Output: Chest Tube Drainage 320 350 Left 80 90 Mediastinal 100 90 Right 140 170 Urine 240 235 Other: Voiding Method Indwelling Catheter Indwelling Catheter ABP, PAP, CO, CI - Last Documented Arterial Blood Pressure 148/52 Pulmonary Artery Pressure 16/4 Cardiac Output 5.2 Cardiac Index 2.8 - Exam CONSTITUTIONAL: Appears comfortable, cooperative, no acute distress RESPIRATORY: Lungs sounds diminished bilaterally. Respirations even, nonlabored. Currently on room air with oxygen saturation 93%. Able to achieve 750 mL on incentive spirometry. Strong nonproductive cough. CARDIOVASCULAR: S1, S2 present. Regular rate and rhythm, sinus rhythm on telemetry. Sternum stable. Palpable peripheral pulses bilaterally. No edema present. No calf pain or tenderness noted. Heart hugger in place with patient demonstrating appropriate use. Antiembolism stockings, SCDs present. GASTROINTESTINAL: Abdomen soft, nontender, nondistended. Hypoactive bowel sounds present 4 quadrants. Tolerating diet. Denies flatus GENITOURINARY: Cota present draining clear, yellow urine. Output overnight 15-20 mL per hour, 455 mL in the last 24 hours INTEGUMENTARY: Skin is warm and dry with evidence of good perfusion. Anterior chest incision well approximated and covered with dry intact dressing NEUROLOGIC: Cranial nerves II through XII intact MUSKULOSKELETAL: Able to move all extremities, strength equal bilaterally PSYCHIATRIC: Alert and oriented to person place and time, appropriate affect, intact judgment and insight INVASIVE LINES AND TUBES: Mediastinal/left/right pleural chest tubes present and connected to wall suction, no air leaks present. Mediastinal tube with 70 mL serosanguineous drainage overnight, 200 mL in the last 24 hours. Left pleural chest tube with 70 mL serosanguineous drainage overnight, 150 mL in the last 24 hours. Right pleural chest tube with 130 mL serosanguineous drainage overnight, 350 mL in the last 24 hours. A/V epicardial pacemaker wires present, grounded. Right internal jugular cordis, right radial arterial line present. Last CVP 4. - Allied health notes Allied health notes reviewed: nursing - Labs CBC & Chem 7: 01/24/24 04:27 01/24/24 04:27 Labs: Abnormal Lab Results - Last 24 Hours (Table) 01/11/24 01/22/24 01/22/24 Range/Units 13:01 08:45 09:20 WBC (3.8-10.6) k/uL RBC (3.80-5.40) m/uL Hgb (11.4-16.0) gm/dL Hct (34.0-46.0) % Plt Count (150-450) k/uL Neutrophils # (1.3-7.7) k/uL Lymphocytes # (1.0-4.8) k/uL ABG pH (7.35-7.45) ABG pCO2 (35-45) mmHg ABG pO2 252 H 259 H (83-108) mmHg ABG HCO3 26 H (21-25) mmol/L ABG O2 Saturation >99.4 H >99.4 H (94-97) % ABG Hematocrit 33 L 32 L (34.0-46.0) % ABG Potassium (3.4-4.5) mmol/L ABG Ionized Calcium (4.5-5.3) mg/dL ABG Glucose 118 H (75-99) mg/dL Hemoglobin 10.8 L 10.4 L (11.4-16.0) gm/dL Chloride (98-107) mmol/L BUN (7-17) mg/dL POC Glucose (mg/dL) (70-110) mg/dL AST (14-36) U/L Alkaline Phosphatase (38-126) U/L Total Protein (6.3-8.2) g/dL Albumin (3.5-5.0) g/dL Arterial Blood Potassium (3.4-4.5) mmol/L Arterial Blood Glucose 118 H (75-99) mg/dL Crossmatch See Detail 01/22/24 01/22/24 01/22/24 Range/Units 09:53 10:25 10:50 WBC (3.8-10.6) k/uL RBC (3.80-5.40) m/uL Hgb (11.4-16.0) gm/dL Hct (34.0-46.0) % Plt Count (150-450) k/uL Neutrophils # (1.3-7.7) k/uL Lymphocytes # (1.0-4.8) k/uL ABG pH 7.48 H 7.47 H (7.35-7.45) ABG pCO2 34 L (35-45) mmHg ABG pO2 >420 H >420 H 414 H (83-108) mmHg ABG HCO3 26 H 27 H (21-25) mmol/L ABG O2 Saturation >99.4 H >99.4 H >99.4 H (94-97) % ABG Hematocrit 26 L 27 L 29 L (34.0-46.0) % ABG Potassium 5.2 H (3.4-4.5) mmol/L ABG Ionized Calcium 3.9 L 4.2 L 4.2 L (4.5-5.3) mg/dL ABG Glucose 128 H 142 H 129 H (75-99) mg/dL Hemoglobin 8.4 L 8.7 L 9.4 L (11.4-16.0) gm/dL Chloride (98-107) mmol/L BUN (7-17) mg/dL POC Glucose (mg/dL) (70-110) mg/dL AST (14-36) U/L Alkaline Phosphatase (38-126) U/L Total Protein (6.3-8.2) g/dL Albumin (3.5-5.0) g/dL Arterial Blood Potassium 5.2 H (3.4-4.5) mmol/L Arterial Blood Glucose 128 H 142 H 129 H (75-99) mg/dL Crossmatch 01/23/24 01/23/24 01/23/24 Range/Units 08:24 10:00 11:16 WBC (3.8-10.6) k/uL RBC (3.80-5.40) m/uL Hgb (11.4-16.0) gm/dL Hct (34.0-46.0) % Plt Count (150-450) k/uL Neutrophils # (1.3-7.7) k/uL Lymphocytes # (1.0-4.8) k/uL ABG pH (7.35-7.45) ABG pCO2 (35-45) mmHg ABG pO2 (83-108) mmHg ABG HCO3 (21-25) mmol/L ABG O2 Saturation (94-97) % ABG Hematocrit (34.0-46.0) % ABG Potassium (3.4-4.5) mmol/L ABG Ionized Calcium (4.5-5.3) mg/dL ABG Glucose (75-99) mg/dL Hemoglobin (11.4-16.0) gm/dL Chloride (98-107) mmol/L BUN (7-17) mg/dL POC Glucose (mg/dL) 146 H 138 H 133 H (70-110) mg/dL AST (14-36) U/L Alkaline Phosphatase (38-126) U/L Total Protein (6.3-8.2) g/dL Albumin (3.5-5.0) g/dL Arterial Blood Potassium (3.4-4.5) mmol/L Arterial Blood Glucose (75-99) mg/dL Crossmatch 01/23/24 01/23/24 01/24/24 Range/Units 16:23 19:59 04:27 WBC 10.7 H (3.8-10.6) k/uL RBC 2.57 L (3.80-5.40) m/uL Hgb 7.6 L (11.4-16.0) gm/dL Hct 23.1 L (34.0-46.0) % Plt Count 89 L (150-450) k/uL Neutrophils # 9.1 H (1.3-7.7) k/uL Lymphocytes # 0.9 L (1.0-4.8) k/uL ABG pH (7.35-7.45) ABG pCO2 (35-45) mmHg ABG pO2 (83-108) mmHg ABG HCO3 (21-25) mmol/L ABG O2 Saturation (94-97) % ABG Hematocrit (34.0-46.0) % ABG Potassium (3.4-4.5) mmol/L ABG Ionized Calcium (4.5-5.3) mg/dL ABG Glucose (75-99) mg/dL Hemoglobin (11.4-16.0) gm/dL Chloride (98-107) mmol/L BUN (7-17) mg/dL POC Glucose (mg/dL) 174 H 161 H (70-110) mg/dL AST (14-36) U/L Alkaline Phosphatase (38-126) U/L Total Protein (6.3-8.2) g/dL Albumin (3.5-5.0) g/dL Arterial Blood Potassium (3.4-4.5) mmol/L Arterial Blood Glucose (75-99) mg/dL Crossmatch 01/24/24 01/24/24 Range/Units 04:27 06:04 WBC (3.8-10.6) k/uL RBC (3.80-5.40) m/uL Hgb (11.4-16.0) gm/dL Hct (34.0-46.0) % Plt Count (150-450) k/uL Neutrophils # (1.3-7.7) k/uL Lymphocytes # (1.0-4.8) k/uL ABG pH (7.35-7.45) ABG pCO2 (35-45) mmHg ABG pO2 (83-108) mmHg ABG HCO3 (21-25) mmol/L ABG O2 Saturation (94-97) % ABG Hematocrit (34.0-46.0) % ABG Potassium (3.4-4.5) mmol/L ABG Ionized Calcium (4.5-5.3) mg/dL ABG Glucose (75-99) mg/dL Hemoglobin (11.4-16.0) gm/dL Chloride 109 H (98-107) mmol/L BUN 18 H (7-17) mg/dL POC Glucose (mg/dL) 111 H (70-110) mg/dL AST 38 H (14-36) U/L Alkaline Phosphatase 37 L (38-126) U/L Total Protein 5.1 L (6.3-8.2) g/dL Albumin 3.2 L (3.5-5.0) g/dL Arterial Blood Potassium (3.4-4.5) mmol/L Arterial Blood Glucose (75-99) mg/dL Crossmatch - Imaging and Cardiology Chest x-ray: image reviewed Assessment and Plan Assessment: Severe aortic valve stenosis with bicuspid aortic valve, status post bioprosthetic aortic valve replacement History of hyperlipidemia Arthritis Lifelong non-smoker Family history of aortic valve replacement in both father and sister Postoperative acute blood loss anemia and thrombocytopenia, expected Plan: Continue to maximize medical therapy with low-dose aspirin, statin, beta- dora. Will increase beta-dora therapy as tolerated Encourage incentive spirometry use 10 times every hour while awake. Bronchodilators per pulmonology Increase activity, ambulate as tolerated. PT/OT/cardiac rehab consulted Will monitor daily labs and x-rays. Electrolyte replacement per protocol. HIT panel sent yesterday, pending. Continue Fe supplementation GI/DVT prophylaxis Insulin management per internal medicine, patient is not diabetic, preoperative hemoglobin A1c 5.1% Pain control with current medication regimen Discontinue cordis, arterial line May discontinue mediastinal chest tube, will continue pleural chest tubes for another 24 hours, monitor output Discontinue Cota catheter, may bladder scan and straight cath for >300 mL residual Continue to record strict accurate intake and output Daily weights More recommendations to follow based on patient's progress
[2024-01-24 11:20] LABS: Glucose,Whole Blood 187 mg/dL (70-110)
--- NOTE | 2024-01-24 11:21 | XR ---
EXAMINATION TYPE: XR chest 1V portable DATE OF EXAM: 01/24/2024 COMPARISON: 01/23/2024 INDICATION: Postop cardiac surgery TECHNIQUE: Single frontal view of the chest is obtained. FINDINGS: The heart size is normal. The pulmonary vasculature is normal. Right-sided chest tube is present. There may be a loculated left lateral lower pneumothorax. Overlyin g artifact may be present. This could be related to some atelectasis. Follow-up is recommended. Mediastinal tube is present. IMPRESSION: 1. Loculated left lower lateral pneumothorax is not excluded. Tiny may be related to atelectasis. Fol low-up is recommended.
--- NOTE | 2024-01-24 12:50 | P.PN ---
Subjective Progress Note Date: 01/24/24 Principal diagnosis: POD #2 aortic valve replacement using a 21 mm Lynch Inspiris bioprosthetic valve, This is a 73-year-old female patient with a known history of nephrolithiasis hyperlipidemia arthritis and bicuspid aortic valve stenosis. She was brought in electively today for an aortic valve replacement. She is seen today in consultation in the intensive care unit. She is currently intubated on the mechanical ventilator on assist-control mode at a rate of 20, tidal volume 400, FiO2 treated down to 40% and a PEEP of 5. Cardiac output 4.4. Cardiac index 2.4. PA pressures 20/12. CVP 7. X-ray reveals postoperative changes with some basilar atelectasis. Endotracheal and nasogastric tubes in good position. White count 13.8. Hemoglobin 10.5. Platelets 138. INR 1.3. Sodium 137. Potassium 4.1. Bicarb 23. BUN 12. Creatinine 0.51. Glucose 123. Right and left, mediastinal chest tubes in good position. Pacer wires in place with backup pacing at 80 bpm. Right IJ Ho[place]-Uzma catheter in place. Left brachial arterial line in place. Heart hugger in place. Patient was reevaluated today on 01/23/24, patient is now postoperative day #1, sitting at bedside recliner, not in any distress, patient is on room air, she was extubated uneventfully LAR yesterday around 1620 5 PM. Currently in sinus rhythm, hemodynamically stable, not requiring any inotropes or any pressors. Patient has some chest discomfort which is expected, continues to have mediastin al right and left pleural chest tubes in place, and continues to have right internal jugular with [place]-Uzma catheter in place/right IJ, chest x-ray showed mostly postoperative changes, no acute processes noted. Lines and catheters were all noted chest tubes were noted CBC is relatively unremarkable hemoglobin is 7.4 today. And as expected, Basic metabolic profile is normal and renal profile is normal Reevaluate today on 01/24/2024, patient is now postoperative day #2, doing extremely well, sitting at the bedside recliner, not in any distress, on room air, hemodynamically stable not requiring any pressors or any inotropes. Patient is participating in incentive spirometry, her chest x-ray is reassuring, continues to have right internal jugular Cordis, right radial arterial line, mediastinal and right left pleural chest tube remain in place. For now WBC count is 10.7 hemoglobin 7.6 basic metabolic profile is normal and renal profile is normal Objective - Vital Signs Vital signs: Vital Signs Temp 98.2 F 01/24/24 12:00 Pulse 75 01/24/24 12:00 Resp 0 L 01/24/24 12:00 BP 95/65 01/24/24 12:00 Pulse Ox 95 01/24/24 12:00 FiO2 40 01/22/24 16:00 Intake & Output 01/23/24 01/24/24 01/24/24 18:59 06:59 18:59 Intake Total 1590 338 152 Output Total 560 585 80 Balance 1030 -247 72 Weight 77.2 kg 81.1 kg Intake: IV 864 338 152 Albumin Human 5% 250 ml 250 In Empty Bag 1 bag @ 250 mls/hr IVPB Q1HR PRN Rx#: [id number] CO/CI 30 Lactated Ringers 1,000 ml 350 260 40 @ 20 mls/hr IV .Q24H [facility] Rx#:[id number] Sodium Ferric Gluconat- 100 100 Sucrose 125 mg In Sodium Chloride 0.9% 100 ml @ 100 mls/hr IVPB DAILY [facility] Rx#:[id number] ceFAZolin 2 gm In Sodium 50 Chloride 0.9% 50 ml @ 100 mls/hr IVPB Q8HR [facility] Rx# :[id number] pressure bags 84 78 12 Intake, IV Titration 0 Amount Insulin Regular 100 unit 0 In Sodium Chloride 0.9% 100 ml @ Per Protocol IV .Q0M [facility] Rx#:[id number] Oral 726 Output: Chest Tube Drainage 320 350 0 Left 80 90 0 Mediastinal 100 90 0 Right 140 170 0 Urine 240 235 80 Other: Voiding Method Indwelling Catheter Indwelling Catheter Indwelling Catheter ABP, PAP, CO, CI - Last Documented Arterial Blood Pressure 104/39 Pulmonary Artery Pressure 16/4 Cardiac Output 5.2 Cardiac Index 2.8 - Exam GENERAL EXAM: Reveals 74-year-old female on room air, in no distress HEAD: Normocephalic. Atraumatic EYES: Normal reaction of pupils, equal size. NOSE: Clear with pink turbinates. THROAT: No erythema or exudates. NECK: No masses, no JVD. Right IJ Ho[place]-Uzma catheter in place CHEST: General dressing dry and intact. Right, left, mediastinal chest tubes in place, pacer wires in place LUNGS: Clear bilaterally no rhonchi no wheezes CVS: S1 and S2 normal 6 systolic murmur throughout the precordium, regular rhythm. ABDOMEN: No hepatosplenomegaly, normal bowel sounds, no guarding or rigidity. SKIN: No rashes CENTRAL NERVOUS SYSTEM: Alert and oriented x 3 no gross focal deficit EXTREMITIES: No clubbing edema or cyanosis - Labs CBC & Chem 7: 01/24/24 04:27 01/24/24 04:27 Labs: Abnormal Lab Results - Last 24 Hours (Table) 01/11/24 01/22/24 01/22/24 Range/Units 13:01 08:45 09:20 WBC (3.8-10.6) k/uL RBC (3.80-5.40) m/uL Hgb (11.4-16.0) gm/dL Hct (34.0-46.0) % Plt Count (150-450) k/uL Neutrophils # (1.3-7.7) k/uL Lymphocytes # (1.0-4.8) k/uL ABG pH (7.35-7.45) ABG pCO2 (35-45) mmHg ABG pO2 252 H 259 H (83-108) mmHg ABG HCO3 26 H (21-25) mmol/L ABG O2 Saturation >99.4 H >99.4 H (94-97) % ABG Hematocrit 33 L 32 L (34.0-46.0) % ABG Potassium (3.4-4.5) mmol/L ABG Ionized Calcium (4.5-5.3) mg/dL ABG Glucose 118 H (75-99) mg/dL Hemoglobin 10.8 L 10.4 L (11.4-16.0) gm/dL Chloride (98-107) mmol/L BUN (7-17) mg/dL POC Glucose (mg/dL) (70-110) mg/dL AST (14-36) U/L Alkaline Phosphatase (38-126) U/L Total Protein (6.3-8.2) g/dL Albumin (3.5-5.0) g/dL Arterial Blood Potassium (3.4-4.5) mmol/L Arterial Blood Glucose 118 H (75-99) mg/dL Crossmatch See Detail 01/22/24 01/22/24 01/22/24 Range/Units 09:53 10:25 10:50 WBC (3.8-10.6) k/uL RBC (3.80-5.40) m/uL Hgb (11.4-16.0) gm/dL Hct (34.0-46.0) % Plt Count (150-450) k/uL Neutrophils # (1.3-7.7) k/uL Lymphocytes # (1.0-4.8) k/uL ABG pH 7.48 H 7.47 H (7.35-7.45) ABG pCO2 34 L (35-45) mmHg ABG pO2 >420 H >420 H 414 H (83-108) mmHg ABG HCO3 26 H 27 H (21-25) mmol/L ABG O2 Saturation >99.4 H >99.4 H >99.4 H (94-97) % ABG Hematocrit 26 L 27 L 29 L (34.0-46.0) % ABG Potassium 5.2 H (3.4-4.5) mmol/L ABG Ionized Calcium 3.9 L 4.2 L 4.2 L (4.5-5.3) mg/dL ABG Glucose 128 H 142 H 129 H (75-99) mg/dL Hemoglobin 8.4 L 8.7 L 9.4 L (11.4-16.0) gm/dL Chloride (98-107) mmol/L BUN (7-17) mg/dL POC Glucose (mg/dL) (70-110) mg/dL AST (14-36) U/L Alkaline Phosphatase (38-126) U/L Total Protein (6.3-8.2) g/dL Albumin (3.5-5.0) g/dL Arterial Blood Potassium 5.2 H (3.4-4.5) mmol/L Arterial Blood Glucose 128 H 142 H 129 H (75-99) mg/dL Crossmatch 01/23/24 01/23/24 01/24/24 Range/Units 16:23 19:59 04:27 WBC 10.7 H (3.8-10.6) k/uL RBC 2.57 L (3.80-5.40) m/uL Hgb 7.6 L (11.4-16.0) gm/dL Hct 23.1 L (34.0-46.0) % Plt Count 89 L (150-450) k/uL Neutrophils # 9.1 H (1.3-7.7) k/uL Lymphocytes # 0.9 L (1.0-4.8) k/uL ABG pH (7.35-7.45) ABG pCO2 (35-45) mmHg ABG pO2 (83-108) mmHg ABG HCO3 (21-25) mmol/L ABG O2 Saturation (94-97) % ABG Hematocrit (34.0-46.0) % ABG Potassium (3.4-4.5) mmol/L ABG Ionized Calcium (4.5-5.3) mg/dL ABG Glucose (75-99) mg/dL Hemoglobin (11.4-16.0) gm/dL Chloride (98-107) mmol/L BUN (7-17) mg/dL POC Glucose (mg/dL) 174 H 161 H (70-110) mg/dL AST (14-36) U/L Alkaline Phosphatase (38-126) U/L Total Protein (6.3-8.2) g/dL Albumin (3.5-5.0) g/dL Arterial Blood Potassium (3.4-4.5) mmol/L Arterial Blood Glucose (75-99) mg/dL Crossmatch 01/24/24 01/24/24 01/24/24 Range/Units 04:27 06:04 11:19 WBC (3.8-10.6) k/uL RBC (3.80-5.40) m/uL Hgb (11.4-16.0) gm/dL Hct (34.0-46.0) % Plt Count (150-450) k/uL Neutrophils # (1.3-7.7) k/uL Lymphocytes # (1.0-4.8) k/uL ABG pH (7.35-7.45) ABG pCO2 (35-45) mmHg ABG pO2 (83-108) mmHg ABG HCO3 (21-25) mmol/L ABG O2 Saturation (94-97) % ABG Hematocrit (34.0-46.0) % ABG Potassium (3.4-4.5) mmol/L ABG Ionized Calcium (4.5-5.3) mg/dL ABG Glucose (75-99) mg/dL Hemoglobin (11.4-16.0) gm/dL Chloride 109 H (98-107) mmol/L BUN 18 H (7-17) mg/dL POC Glucose (mg/dL) 111 H 187 H (70-110) mg/dL AST 38 H (14-36) U/L Alkaline Phosphatase 37 L (38-126) U/L Total Protein 5.1 L (6.3-8.2) g/dL Albumin 3.2 L (3.5-5.0) g/dL Arterial Blood Potassium (3.4-4.5) mmol/L Arterial Blood Glucose (75-99) mg/dL Crossmatch Assessment and Plan Assessment: Impression: Symptomatic bicuspid aortic valve stenosis. Status post aortic valve replacement. Postoperative day #2 History of nephrolithiasis Hyperlipidemia Arthritis Recommendation: Reviewed chest x-ray, no clinical significance to her loculated tiny pneumothorax in the left midlung area, patient has chest tube in place Continue maximal therapy including low-dose aspirin beta-blockers statin Ambulate as early as possible Continue incentive spirometry Pain control with current medications Discontinue unnecessary catheters and tubes as soon as possible if not felt to be necessary Continue C[place] catheter for the next 24 hours Will continue to follow Time with Patient: Less than 30
[2024-01-24] MEDS: ACETAMINOPHEN TAB 325 MG TAB PO PRN (16:10)
[2024-01-24 16:16] LABS: Glucose,Whole Blood 113 mg/dL (70-110)
--- NOTE | 2024-01-24 17:56 | P.PN ---
Progress Note - Text Progress Note Date: 01/24/24 - Chief Complaint Aortic valve surgery - History of Present Illness This is a 73-year-old patient, follows Dr. Calixto. Patient recently underwent a cardiac catheterization that showed normal coronaries. Patient has known severe arctic stenosis with a KAROL showing area of 0.6 cm. Bicuspid arctic valve. Patient today underwent aortic valve repair. Formal note is pending. Patient received albumin and Cell Saver during procedure. Postprocedure in the ICU. Intubated. On propofol and insulin. On the ventilator. Patient has 1 left 1 right pleural chest tube and 1 mediastinal chest tube. FiO2 60%. January 22: Patient extubated this morning. Up in a recliner. Chest tubes remain in place. On clear liquid diet. Patient received IV amiodarone yesterday. DC IV insulin drip. Levemir 10 units IV once. Follow Accu-Cheks. January 23: Sitting up in a recliner. 1 chest tube pulled out. Tolerating some diet. Passed flatus. Feeling better. Active Medications Acetaminophen (Acetaminophen Tab 325 Mg Tab) 650 mg PO Q4HR PRN PRN Reason: Fever and/ or Pain Last Admin: 01/24/24 16:10 Dose: 650 mg Albuterol/Ipratropium (Ipratropium-Albuterol 3 Ml Neb) 3 ml INHALATION RT-Q2H PRN PRN Reason: Shortness Of Breath Or Wheezing Albuterol/Ipratropium (Ipratropium-Albuterol 3 Ml Neb) 3 ml INHALATION RT-QID [facility] Last Admin: 01/24/24 15:09 Dose: Not Given Ascorbic Acid (Ascorbic Acid 500 Mg Tab) 1,500 mg PO DAILY [facility] Last Admin: 01/24/24 08:50 Dose: 1,500 mg Aspirin (Aspirin 81 Mg) 81 mg PO DAILY [facility] Last Admin: 01/24/24 08:50 Dose: 81 mg Atorvastatin Calcium (Atorvastatin 40 Mg Tab) 40 mg PO DAILY [facility] Last Admin: 01/24/24 08:50 Dose: 40 mg Benzocaine/Menthol (Benzocaine/Menthol Lozeng 1 Each Lozenge) 1 each MUCOUS MEM Q2H PRN PRN Reason: Sore Throat Bisacodyl (Bisacodyl 10 Mg Supp) 10 mg RECTAL DAILY PRN PRN Reason: Constipation Cholecalciferol (Cholecalciferol 25 Mcg (1000 Iu) Tablet) 25 mcg PO DAILY [facility] Last Admin: 01/24/24 08:50 Dose: 25 mcg Dextrose/Water (Dextrose 50% Syringe 50 Ml) 25 ml IVP PER PROTOCOL PRN; Protocol PRN Reason: Hypoglycemia Dextrose/Water (Dextrose 50% Syringe 50 Ml) 50 ml IVP PER PROTOCOL PRN; Protocol PRN Reason: Hypoglycemia Ferrous Sulfate (Ferrous Sulfate 325 Mg Tab) 325 mg PO BID-W/MEALS [facility] Last Admin: 01/24/24 16:11 Dose: 325 mg Fondaparinux (Fondaparinux 2.5 Mg/0.5 Ml Syringe) 2.5 mg SQ DAILY [facility] Last Admin: 01/24/24 09:29 Dose: 2.5 mg Amiodarone HCl 150 mg/ (Dextrose/Water) 103 mls @ 618 mls/hr IV .Q10M PRN; Protocol PRN Reason: A.FIB/FLUTTER Amiodarone HCl 360 mg/ (Dextrose/Water) 207.2 mls @ 34.533 mls/hr IV .Q6H PRN; Protocol PRN Reason: A.FIB/FLUTTER Amiodarone HCl 450 mg/ (Dextrose/Water) 250 mls @ 16.667 mls/hr IV .Q15H PRN; Protocol PRN Reason: A.FIB/FLUTTER Calcium Gluconate/Sodium (Chloride 2 gm/ IV Solution) 100 mls @ 100 mls/hr IVPB ONCE PRN PRN Reason: Ionized Calcium less than 4.4 Stop: 02/01/24 12:15 Ferric Sodium Gluconate 125 mg (/ Sodium Chloride) 110 mls @ 100 mls/hr IVPB DAILY [facility] Stop: 01/25/24 10:05 Last Admin: 01/24/24 09:29 Dose: 100 mls/hr Insulin Aspart (Insulin Aspart (Novolog) 100 Unit/Ml Vial) 0 unit SQ ACHS [facility]; Protocol Last Admin: 01/24/24 16:15 Dose: Not Given Insulin Detemir (Insulin Detemir (Levemir) 100 Unit/Ml Syr) 10 unit SQ DAILY@0700 [facility] Last Admin: 01/24/24 06:38 Dose: 10 unit Magnesium Hydroxide (Magnesium Hydroxide 2,400 Mg/30 Ml Cup) 2,400 mg PO BID PRN PRN Reason: Constipation Metoclopramide HCl (Metoclopramide 5 Mg/Ml 2 Ml Vial) 10 mg IVP Q4H PRN PRN Reason: Nausea And Vomiting Last Admin: 01/23/24 05:50 Dose: 10 mg Metoprolol Tartrate (Metoprolol Tartrate 12.5 Mg Tab) 12.5 mg PO BID [facility] Last Admin: 01/24/24 08:50 Dose: 12.5 mg Miscellaneous Information (Potassium Replacement Protocol 1 Each Misc) 1 each MISCELLANE DAILY PRN; Protocol PRN Reason: Per Protocol Miscellaneous Information (Magnesium Replacement Protocol 1 Each Misc) 1 each MISCELLANE DAILY PRN; Protocol PRN Reason: Per Protocol Ondansetron HCl (Ondansetron 4 Mg/2 Ml Vial) 4 mg IVP Q6HR PRN PRN Reason: Nausea And Vomiting Last Admin: 01/23/24 05:30 Dose: 4 mg Oxycodone HCl (Oxycodone Hcl 5 Mg Tab) 5 mg PO Q4HR PRN PRN Reason: Moderate Pain (Scale 4 to 6) Last Admin: 01/24/24 11:08 Dose: 5 mg Oxycodone HCl (Oxycodone Hcl 5 Mg Tab) 10 mg PO Q4HR PRN PRN Reason: Severe Pain (Scale 7 to 10) Last Admin: 01/24/24 06:38 Dose: 10 mg Pantoprazole Sodium (Pantoprazole 40 Mg Tablet) 40 mg PO AC-BRKFST [facility] Last Admin: 01/24/24 06:38 Dose: 40 mg Senna/Docusate Sodium (Sennosides-Docusate Sodium 1 Each Tab) 2 each PO HS [facility] Last Admin: 01/23/24 20:04 Dose: 2 each Sodium Chloride (Sodium Chloride 0.9% Flush 10 Ml Syringe) 10 ml IV BID [facility] Last Admin: 01/24/24 08:50 Dose: 10 ml Social history: No smoking no alcohol Physical examination: VITAL SIGNS: 98.2, 86, 12, 96.42, 95% room air GENERAL: In a recliner. Appears better. 2 chest tubes. EYES: Pupils equal. Conjunctiva marvin l. HEENT: [External appearance of nose and ears normal, oral cavity endotracheal tube NECK: JVD unable to assess; masses not palpable. HEART: First and second heart sounds are normal; no edema. LUNGS: Respiratory rate increased l; decreased breath sounds ABDOMEN: Soft, nontender, liver spleen not palpable, no masses palpable. PSYCH: Alert and oriented x3; mood and affect marvin l. INVESTIGATIONS, reviewed in the clinical context: January 23: White count 10.7 hemoglobin 7.6 platelets 89 potassium 4 creatinine 0.68 January 22: White count 6.4 hemoglobin 7.4 platelets 64 potassium 4.1 creatinine 0.59 January 22, 2024: White count 9.5 hemoglobin 10 platelets 119 sodium 137 potassium 4.1 creatinine 0.51 albumin 2.8 Previous labs: White count 4.8 hemoglobin 13.3 platelets 217 albumin 4.1 Cardiac catheterization: Normal coronaries KAROL: Bicuspid aortic valve. Area 0.6 cm Assessment plan: -Status post aortic valve repair for severe arctic stenosis -Acute ventilator support, postanesthesia for surgery-extubated January 22 -Sedation with IV propofol-discontinued -Acute postprocedure blood loss anemia expected from surgery: Follow H&H IV Ferrlecit -Acute hypoalbuminemia, reactive and from blood loss anemia -Acute dilutional postprocedure thrombocytopenia, follow -Primary osteoarthritis -Kidney stones, asymptomatic -History of gastric sleeve surgery Getting daily IV Ferrlecit. Tolerating diet better. Discussed Thank you Dr. Carlisle Past Medical History Past Medical History: Osteoarthritis (OA) Additional Past Medical History / Comment(s): heart murmur,Aortic stenosis, Covid Aug 2023,kidney stones History of Any Multi-Drug Resistant Organisms: None Reported Past Surgical History: Bariatric Surgery, Cholecystectomy, Hysterectomy, Joint Replacement Additional Past Surgical History / Comment(s): gastric sleeve surgery, rt knee replacement,keely cataracts,partial hyst Past Anesthesia/Blood Transfusion Reactions: No Reported Reaction Additional Past Anesthesia/Blood Transfusion Reaction / Comm: no hx blood transfusion Past Psychological History: No Psychological Hx Reported Smoking Status: Never smoker Past Alcohol Use History: None Reported Past Drug Use History: None Reported
[2024-01-24 20:00] LABS: Glucose,Whole Blood 141 mg/dL (70-110)
--- NOTE | 2024-01-24 20:22 | P.PN ---
Subjective Progress Note Date: 01/24/24 HISTORY OF PRESENTING ILLNESS 73-year-old with history of severe aortic stenosis with bicuspid aortic valve, hypertension, dyslipidemia, underwent surgical aortic valve replacement with 21 mm Lynch Inspira bioprosthetic aortic valve, ligation of left atrial appendage with 35mm atrial clip. Patient is currently monitored in ICU. She tolerated the procedure well. She has 3 chest tubes, temporary pacemaker, IJ catheter is in place. [place]-Uzma catheter was removed this morning. She is hemodynamically stable. No arrhythmias noted on telemetry so far. Progress note January 24, 2024 Patient seen and examined at bedside this a.m. She is coming along well. She still has chest tube in place, no evidence of atrial fibrillation on telemetry monitoring over last 24 hours. PHYSICAL EXAMINATION Lungs: Diminished breath sounds pulm slightly effort, [address], 1 mediastinal, 1 chest tube bilateral, Heart: Regular rate and rhythm, mild systolic murmur audible in aortic area. Abdomen: Soft nontender, Extremities: No edema, Neuro: Alert, oritented, no focal deficits. Detailed neuro exam was not performed. ASSESSMENT Severe bicuspid aortic stenosis s/p Lynch Inspira 21 mm surgical aortic valve replacement Atrial clip ligation Dyslipidemia PLAN Continue to monitor hemodynamics. Continue aspirin, statin, low-dose beta-dora. Cardiology team will continue to follow-up. At this time patient does not appear volume overloaded. Will evaluate the patient on day-to-day basis. Objective - Vital Signs Vital signs: Vital Signs Temp 98.7 F 01/24/24 20:00 Pulse 78 01/24/24 20:00 Resp 12 01/24/24 20:00 BP 103/59 01/24/24 20:00 Pulse Ox 97 01/24/24 20:00 FiO2 40 01/22/24 16:00 Intake & Output 01/24/24 01/24/24 01/25/24 06:59 18:59 06:59 Intake Total 338 152 Output Total 585 295 120 Balance -247 -143 -120 Weight 81.1 kg Intake: IV 338 152 Lactated Ringers 1,000 ml 260 40 @ 20 mls/hr IV .Q24H [facility] Rx#:[id number] Sodium Ferric Gluconat- 100 Sucrose 125 mg In Sodium Chloride 0.9% 100 ml @ 100 mls/hr IVPB DAILY [facility] Rx#:[id number] pressure bags 78 12 Output: Chest Tube Drainage 350 120 120 Left 90 60 60 Mediastinal 90 0 Right 170 60 60 Urine 235 175 Other: Voiding Method Indwelling Catheter Indwelling Catheter ABP, PAP, CO, CI - Last Documented Arterial Blood Pressure 104/39 Pulmonary Artery Pressure 16/4 Cardiac Output 5.2 Cardiac Index 2.8 - Labs CBC & Chem 7: 01/24/24 04:27 01/24/24 04:27 Labs: Abnormal Lab Results - Last 24 Hours (Table) 01/11/24 01/22/24 01/22/24 Range/Units 13:01 08:45 09:20 WBC (3.8-10.6) k/uL RBC (3.80-5.40) m/uL Hgb (11.4-16.0) gm/dL Hct (34.0-46.0) % Plt Count (150-450) k/uL Neutrophils # (1.3-7.7) k/uL Lymphocytes # (1.0-4.8) k/uL ABG pH (7.35-7.45) ABG pCO2 (35-45) mmHg ABG pO2 252 H 259 H (83-108) mmHg ABG HCO3 26 H (21-25) mmol/L ABG O2 Saturation >99.4 H >99.4 H (94-97) % ABG Hematocrit 33 L 32 L (34.0-46.0) % ABG Potassium (3.4-4.5) mmol/L ABG Ionized Calcium (4.5-5.3) mg/dL ABG Glucose 118 H (75-99) mg/dL Hemoglobin 10.8 L 10.4 L (11.4-16.0) gm/dL Chloride (98-107) mmol/L BUN (7-17) mg/dL POC Glucose (mg/dL) (70-110) mg/dL AST (14-36) U/L Alkaline Phosphatase (38-126) U/L Total Protein (6.3-8.2) g/dL Albumin (3.5-5.0) g/dL Arterial Blood Potassium (3.4-4.5) mmol/L Arterial Blood Glucose 118 H (75-99) mg/dL Crossmatch See Detail 03/29/24 03/29/24 03/29/24 Range/Units 09:53 10:25 10:50 WBC (3.8-10.6) k/uL RBC (3.80-5.40) m/uL Hgb (11.4-16.0) gm/dL Hct (34.0-46.0) % Plt Count (150-450) k/uL Neutrophils # (1.3-7.7) k/uL Lymphocytes # (1.0-4.8) k/uL ABG pH 7.48 H 7.47 H (7.35-7.45) ABG pCO2 34 L (35-45) mmHg ABG pO2 >420 H >420 H 414 H (83-108) mmHg ABG HCO3 26 H 27 H (21-25) mmol/L ABG O2 Saturation >99.4 H >99.4 H >99.4 H (94-97) % ABG Hematocrit 26 L 27 L 29 L (34.0-46.0) % ABG Potassium 5.2 H (3.4-4.5) mmol/L ABG Ionized Calcium 3.9 L 4.2 L 4.2 L (4.5-5.3) mg/dL ABG Glucose 128 H 142 H 129 H (75-99) mg/dL Hemoglobin 8.4 L 8.7 L 9.4 L (11.4-16.0) gm/dL Chloride (98-107) mmol/L BUN (7-17) mg/dL POC Glucose (mg/dL) (70-110) mg/dL AST (14-36) U/L Alkaline Phosphatase (38-126) U/L Total Protein (6.3-8.2) g/dL Albumin (3.5-5.0) g/dL Arterial Blood Potassium 5.2 H (3.4-4.5) mmol/L Arterial Blood Glucose 128 H 142 H 129 H (75-99) mg/dL Crossmatch 01/24/24 01/24/24 01/24/24 Range/Units 04:27 04:27 06:04 WBC 10.7 H (3.8-10.6) k/uL RBC 2.57 L (3.80-5.40) m/uL Hgb 7.6 L (11.4-16.0) gm/dL Hct 23.1 L (34.0-46.0) % Plt Count 89 L (150-450) k/uL Neutrophils # 9.1 H (1.3-7.7) k/uL Lymphocytes # 0.9 L (1.0-4.8) k/uL ABG pH (7.35-7.45) ABG pCO2 (35-45) mmHg ABG pO2 (83-108) mmHg ABG HCO3 (21-25) mmol/L ABG O2 Saturation (94-97) % ABG Hematocrit (34.0-46.0) % ABG Potassium (3.4-4.5) mmol/L ABG Ionized Calcium (4.5-5.3) mg/dL ABG Glucose (75-99) mg/dL Hemoglobin (11.4-16.0) gm/dL Chloride 109 H (98-107) mmol/L BUN 18 H (7-17) mg/dL POC Glucose (mg/dL) 111 H (70-110) mg/dL AST 38 H (14-36) U/L Alkaline Phosphatase 37 L (38-126) U/L Total Protein 5.1 L (6.3-8.2) g/dL Albumin 3.2 L (3.5-5.0) g/dL Arterial Blood Potassium (3.4-4.5) mmol/L Arterial Blood Glucose (75-99) mg/dL Crossmatch 01/24/24 01/24/24 01/24/24 Range/Units 11:19 16:14 19:58 WBC (3.8-10.6) k/uL RBC (3.80-5.40) m/uL Hgb (11.4-16.0) gm/dL Hct (34.0-46.0) % Plt Count (150-450) k/uL Neutrophils # (1.3-7.7) k/uL Lymphocytes # (1.0-4.8) k/uL ABG pH (7.35-7.45) ABG pCO2 (35-45) mmHg ABG pO2 (83-108) mmHg ABG HCO3 (21-25) mmol/L ABG O2 Saturation (94-97) % ABG Hematocrit (34.0-46.0) % ABG Potassium (3.4-4.5) mmol/L ABG Ionized Calcium (4.5-5.3) mg/dL ABG Glucose (75-99) mg/dL Hemoglobin (11.4-16.0) gm/dL Chloride (98-107) mmol/L BUN (7-17) mg/dL POC Glucose (mg/dL) 187 H 113 H 141 H (70-110) mg/dL AST (14-36) U/L Alkaline Phosphatase (38-126) U/L Total Protein (6.3-8.2) g/dL Albumin (3.5-5.0) g/dL Arterial Blood Potassium (3.4-4.5) mmol/L Arterial Blood Glucose (75-99) mg/dL Crossmatch
[2024-01-24 23:04] LABS: African American GFR (CKD) 85 (>60 ml/min/1.73 sqM); Anion Gap 2 mmol/L; Blood Urea Nitrogen 24 mg/dL (7-17); Calcium 8.7 mg/dL (8.4-10.2); Carbon Dioxide 28 mmol/L (22-30); Chloride 106 mmol/L (98-107); Glucose 99 mg/dL (74-99); Magnesium 2.3 mg/dL (1.6-2.3); Non-African American GFR(CKD) 74 (>60 ml/min/1.73 sqM); Potassium 4.4 mmol/L (3.5-5.1); Sodium 136 mmol/L (137-145)
[2024-01-25 03:59] LABS: Basophils % (A) 0 %; Eosinophils % (A) 0 %; HCT 23.8 % (34.0-46.0); HGB 7.9 gm/dL (11.4-16.0); Lymphocytes # (A) 1.3 k/uL (1.0-4.8); Lymphocytes % (A) 15 %; MCH 29.9 pg (25.0-35.0); MCV 90.3 fL (80.0-100.0); Mean Platelet Volume 11.8; Monocytes # (A) 0.5 k/uL (0-1.0); Monocytes % (A) 6 %; Neutrophils % (A) 78 %; RBC 2.63 m/uL (3.80-5.40); RDW 14.4 % (11.5-15.5)
[2024-01-25 04:03] LABS: Platelet Count 87 k/uL (150-450)
[2024-01-25 04:20] LABS: ALT 10 U/L (4-34); AST 30 U/L (14-36); African American GFR (CKD) >90 (>60 ml/min/1.73 sqM); Albumin 2.9 g/dL (3.5-5.0); Alkaline Phosphatase 41 U/L (38-126); Anion Gap 3 mmol/L; Blood Urea Nitrogen 25 mg/dL (7-17); Calcium 8.7 mg/dL (8.4-10.2); Carbon Dioxide 27 mmol/L (22-30); Chloride 107 mmol/L (98-107); Glucose 91 mg/dL (74-99); Non-African American GFR(CKD) 82 (>60 ml/min/1.73 sqM); Potassium 4.4 mmol/L (3.5-5.1); Sodium 137 mmol/L (137-145); Total Bilirubin 0.7 mg/dL (0.2-1.3)
[2024-01-25 06:12] LABS: Glucose,Whole Blood 112 mg/dL (70-110)
--- NOTE | 2024-01-25 08:07 | P.PN ---
Subjective Progress Note Date: 01/25/24 Principal diagnosis: Severe aortic valve stenosis with bicuspid aortic valve. History of hyperlipidemia, arthritis, lifelong non-smoker, and family history of aortic valve replacement in both father and sister POD #3 aortic valve replacement using a 21 mm Lynch Inspiris bioprosthetic valve, ligation of the left atrial appendage using a 35 mm AtriClip, epiaortic ultrasound and intraoperative transesophageal echocardiogram Postoperative acute blood loss anemia and thrombocytopenia, expected given hemodilution The patient was seen and examined sitting up in recliner at this morning in no acute distress. Currently in sinus rhythm although she is having some PACs, hemodynamically stable on no inotropes or pressors. Does complain of expected postsurgical chest discomfort which she is tolerating on current medication regimen, denies shortness of breath. Right/left pleural chest tubes remain. Chest x-ray, labs reviewed. Patient did ambulate in hallway yesterday multiple times. No other new concerns. Objective - Vital Signs Vital signs: Vital Signs Temp 98.6 F 01/25/24 04:00 Pulse 82 01/25/24 07:00 Resp 24 01/25/24 07:00 BP 103/55 01/25/24 07:00 Pulse Ox 97 01/25/24 07:00 FiO2 40 01/22/24 16:00 Intake & Output 01/24/24 01/25/24 01/25/24 18:59 06:59 18:59 Intake Total 152 Output Total 295 295 Balance -143 -295 Weight 80.7 kg Intake: IV 152 Lactated Ringers 1,000 ml 40 @ 20 mls/hr IV .Q24H KUN Rx#:[id number] Sodium Ferric Gluconat- 100 Sucrose 125 mg In Sodium Chloride 0.9% 100 ml @ 100 mls/hr IVPB DAILY KUN Rx#:[id number] pressure bags 12 Output: Chest Tube Drainage 120 200 Left 60 60 Mediastinal 0 Right 60 140 Urine 175 95 Other: Voiding Method Indwelling Catheter Indwelling Catheter ABP, PAP, CO, CI - Last Documented Arterial Blood Pressure 104/39 Pulmonary Artery Pressure 16/4 Cardiac Output 5.2 Cardiac Index 2.8 - Exam CONSTITUTIONAL: Appears comfortable, cooperative, no acute distress RESPIRATORY: Lungs sounds diminished bilaterally. Respirations even, nonlabored. Currently on room air with oxygen saturation 937%. Able to achieve 750-1000 mL on incentive spirometry. Strong nonproductive cough. CARDIOVASCULAR: S1, S2 present. Regular rate and rhythm, sinus rhythm with PACs on telemetry. Sternum stable. Palpable peripheral pulses bilaterally. No edema present. No calf pain or tenderness noted. Heart hugger in place with patient demonstrating appropriate use. Antiembolism stockings, SCDs present. GASTROINTESTINAL: Abdomen soft, nontender, nondistended. Hypoactive bowel sounds present 4 quadrants. Tolerating diet. Positive flatus GENITOURINARY: Cota discontinued at midnight, due to void INTEGUMENTARY: Skin is warm and dry with evidence of good perfusion. Anterior chest incision well approximated and covered with dry intact dressing NEUROLOGIC: Cranial nerves II through XII intact MUSKULOSKELETAL: Able to move all extremities, strength equal bilaterally PSYCHIATRIC: Alert and oriented to person place and time, appropriate affect, intact judgment and insight INVASIVE LINES AND TUBES: Left/right pleural chest tubes present and connected to wall suction, no air leaks present. Left pleural chest tube with 50 mL serosanguineous drainage overnight, 100 mL in the last 24 hours. Right pleural chest tube with 120 mL serosanguineous drainage overnight, 200 mL in the last 24 hours. A/V epicardial pacemaker wires present, grounded - Allied health notes Allied health notes reviewed: nursing - Labs CBC & Chem 7: 01/25/24 03:50 01/25/24 03:50 Labs: Abnormal Lab Results - Last 24 Hours (Table) 01/24/24 01/24/24 01/24/24 Range/Units 11:19 16:14 19:58 RBC (3.80-5.40) m/uL Hgb (11.4-16.0) gm/dL Hct (34.0-46.0) % Plt Count (150-450) k/uL Sodium (137-145) mmol/L BUN (7-17) mg/dL POC Glucose (mg/dL) 187 H 113 H 141 H (70-110) mg/dL Total Protein (6.3-8.2) g/dL Albumin (3.5-5.0) g/dL 01/24/24 01/25/24 01/25/24 Range/Units 22:13 03:50 03:50 RBC 2.63 L (3.80-5.40) m/uL Hgb 7.9 L (11.4-16.0) gm/dL Hct 23.8 L (34.0-46.0) % Plt Count 87 L (150-450) k/uL Sodium 136 L (137-145) mmol/L BUN 24 H 25 H (7-17) mg/dL POC Glucose (mg/dL) (70-110) mg/dL Total Protein 5.0 L (6.3-8.2) g/dL Albumin 2.9 L (3.5-5.0) g/dL 01/25/24 Range/Units 06:11 RBC (3.80-5.40) m/uL Hgb (11.4-16.0) gm/dL Hct (34.0-46.0) % Plt Count (150-450) k/uL Sodium (137-145) mmol/L BUN (7-17) mg/dL POC Glucose (mg/dL) 112 H (70-110) mg/dL Total Protein (6.3-8.2) g/dL Albumin (3.5-5.0) g/dL - Imaging and Cardiology Chest x-ray: image reviewed Assessment and Plan Assessment: Severe aortic valve stenosis with bicuspid aortic valve, status post bioprosthetic aortic valve replacement History of hyperlipidemia Arthritis Lifelong non-smoker Family history of aortic valve replacement in both father and sister Postoperative acute blood loss anemia and thrombocytopenia, expected Plan: Continue to maximize medical therapy with low-dose aspirin, statin, beta- dora. Will increase beta-dora therapy as tolerated Encourage incentive spirometry use 10 times every hour while awake. Bronchodilators per pulmonology Increase activity, ambulate as tolerated. PT/OT/cardiac rehab consulted Will monitor daily labs and x-rays. Electrolyte replacement per protocol. HIT panel sent, pending. Continue Fe supplementation GI/DVT prophylaxis Insulin management per internal medicine, patient is not diabetic, preoperative hemoglobin A1c 5.1% Pain control with current medication regimen Will discontinue left pleural chest tube, may discontinue right chest tube later today depending on drainage Cota catheter discontinued at midnight, may bladder scan and straight cath for >300 mL residual Continue to record strict accurate intake and output Daily weights Will place transfer orders for [address] [place] [id number] cardiac stepdown unit, may transfer when bed available More recommendations to follow based on patient's progress
--- NOTE | 2024-01-25 08:33 | XR ---
EXAMINATION TYPE: XR chest 1V portable DATE OF EXAM: 01/25/2024 5:50 AM CLINICAL INDICATION:Female, 73 years old with history of post cardiac surgery; [facility] COMPARISON: Chest radiographs from 01/24/2024 TECHNIQUE: XR chest 1V portable Frontal view of the chest. FINDINGS: Lungs/Pleura: Blunting of the left costophrenic angle. There is no evidence of right pleural effusion , focal consolidation, or pneumothorax. Pulmonary vascularity: Unremarkable. Heart/mediastinum: Cardiomediastinal silhouette is prominent in size. Left atrial appendage occlusion device is present. Musculoskeletal: No acute osseous pathology. Other findings: None Lines/Tubes: Bilateral thoracotomy tubes are present without evidence of pneumothorax. IMPRESSION: 1. Postsurgical changes with stable lines and tubes. 2. Trace left pleural effusion.
--- NOTE | 2024-01-25 11:11 | P.PN ---
Progress Note - Text Progress Note Date: 01/25/24 - Chief Complaint Aortic valve surgery - History of Present Illness This is a 73-year-old patient, follows Dr. Calixto. Patient recently underwent a cardiac catheterization that showed normal coronaries. Patient has known severe arctic stenosis with a KAROL showing area of 0.6 cm. Bicuspid arctic valve. Patient today underwent aortic valve repair. Formal note is pending. Patient received albumin and Cell Saver during procedure. Postprocedure in the ICU. Intubated. On propofol and insulin. On the ventilator. Patient has 1 left 1 right pleural chest tube and 1 mediastinal chest tube. FiO2 60%. January 22: Patient extubated this morning. Up in a recliner. Chest tubes remain in place. On clear liquid diet. Patient received IV amiodarone yesterday. DC IV insulin drip. Levemir 10 units IV once. Follow Accu-Cheks. January 23: Sitting up in a recliner. 1 chest tube pulled out. Tolerating some diet. Passed flatus. Feeling better. January 24: Patient did walk about 3040 steps. [address] Eating some. Passing flatus no BM. Breathing stable. Some discomfort of the operative site. Some PACs. Active Medications Acetaminophen (Acetaminophen Tab 325 Mg Tab) 650 mg PO Q4HR PRN PRN Reason: Fever and/ or Pain Last Admin: 01/25/24 06:01 Dose: 650 mg Albuterol/Ipratropium (Ipratropium-Albuterol 3 Ml Neb) 3 ml INHALATION RT-Q2H PRN PRN Reason: Shortness Of Breath Or Wheezing Albuterol/Ipratropium (Ipratropium-Albuterol 3 Ml Neb) 3 ml INHALATION RT-QID [facility] Last Admin: 01/25/24 09:25 Dose: Not Given Ascorbic Acid (Ascorbic Acid 500 Mg Tab) 1,500 mg PO DAILY [facility] Last Admin: 01/25/24 08:56 Dose: 1,500 mg Aspirin (Aspirin 81 Mg) 81 mg PO DAILY [facility] Last Admin: 01/25/24 08:56 Dose: 81 mg Atorvastatin Calcium (Atorvastatin 40 Mg Tab) 40 mg PO DAILY [facility] Last Admin: 01/25/24 08:56 Dose: 40 mg Benzocaine/Menthol (Benzocaine/Menthol Lozeng 1 Each Lozenge) 1 each MUCOUS MEM Q2H PRN PRN Reason: Sore Throat Bisacodyl (Bisacodyl 10 Mg Supp) 10 mg RECTAL DAILY PRN PRN Reason: Constipation Cholecalciferol (Cholecalciferol 25 Mcg (1000 Iu) Tablet) 25 mcg PO DAILY [facility] Last Admin: 01/25/24 08:56 Dose: 25 mcg Dextrose/Water (Dextrose 50% Syringe 50 Ml) 25 ml IVP PER PROTOCOL PRN; Protocol PRN Reason: Hypoglycemia Dextrose/Water (Dextrose 50% Syringe 50 Ml) 50 ml IVP PER PROTOCOL PRN; Protocol PRN Reason: Hypoglycemia Ferrous Sulfate (Ferrous Sulfate 325 Mg Tab) 325 mg PO BID-W/MEALS [facility] Last Admin: 01/25/24 06:01 Dose: 325 mg Fondaparinux (Fondaparinux 2.5 Mg/0.5 Ml Syringe) 2.5 mg SQ DAILY [facility] Last Admin: 01/25/24 08:56 Dose: 2.5 mg Amiodarone HCl 150 mg/ (Dextrose/Water) 103 mls @ 618 mls/hr IV .Q10M PRN; Protocol PRN Reason: A.FIB/FLUTTER Amiodarone HCl 360 mg/ (Dextrose/Water) 207.2 mls @ 34.533 mls/hr IV .Q6H PRN; Protocol PRN Reason: A.FIB/FLUTTER Amiodarone HCl 450 mg/ (Dextrose/Water) 250 mls @ 16.667 mls/hr IV .Q15H PRN; Protocol PRN Reason: A.FIB/FLUTTER Insulin Aspart (Insulin Aspart (Novolog) 100 Unit/Ml Vial) 0 unit SQ ACHS [facility]; Protocol Last Admin: 01/25/24 06:12 Dose: Not Given Insulin Detemir (Insulin Detemir (Levemir) 100 Unit/Ml Syr) 10 unit SQ DAILY@0700 [facility] Last Admin: 01/25/24 06:00 Dose: 10 unit Magnesium Hydroxide (Magnesium Hydroxide 2,400 Mg/30 Ml Cup) 2,400 mg PO BID PRN PRN Reason: Constipation Metoclopramide HCl (Metoclopramide 5 Mg/Ml 2 Ml Vial) 10 mg IVP Q4H PRN PRN Reason: Nausea And Vomiting Last Admin: 01/23/24 05:50 Dose: 10 mg Metoprolol Tartrate (Metoprolol Tartrate 12.5 Mg Tab) 12.5 mg PO BID [facility] Last Admin: 01/25/24 08:58 Dose: 12.5 mg Miscellaneous Information (Potassium Replacement Protocol 1 Each Misc) 1 each MISCELLANE DAILY PRN; Protocol PRN Reason: Per Protocol Miscellaneous Information (Magnesium Replacement Protocol 1 Each Misc) 1 each MISCELLANE DAILY PRN; Protocol PRN Reason: Per Protocol Ondansetron HCl (Ondansetron 4 Mg/2 Ml Vial) 4 mg IVP Q6HR PRN PRN Reason: Nausea And Vomiting Last Admin: 01/23/24 05:30 Dose: 4 mg Oxycodone HCl (Oxycodone Hcl 5 Mg Tab) 5 mg PO Q6HR PRN PRN Reason: Breakthrough Pain Pantoprazole Sodium (Pantoprazole 40 Mg Tablet) 40 mg PO AC-BRKFST [facility] Last Admin: 01/25/24 06:00 Dose: 40 mg Senna/Docusate Sodium (Sennosides-Docusate Sodium 1 Each Tab) 2 each PO HS [facility] Last Admin: 01/24/24 20:05 Dose: 2 each Sodium Chloride (Sodium Chloride 0.9% Flush 10 Ml Syringe) 10 ml IV BID [facility] Last Admin: 01/25/24 08:57 Dose: 10 ml Social history: No smoking no alcohol Physical examination: VITAL SIGNS: 98.6, 71, 16, 92 x 54, 98% room air GENERAL: In a recliner. 1 chest tube c EYES: Pupils equal. Conjunctiva marvin l. HEENT: [External appearance of nose and ears normal, oral cavity endotracheal tube NECK: JVD unable to assess; masses not palpable. HEART: First and second heart sounds are normal; no edema. LUNGS: Respiratory rate increased l; decreased breath sounds ABDOMEN: Soft, nontender, liver spleen not palpable, no masses palpable. PSYCH: Alert and oriented x3; mood and affect marvin l. INVESTIGATIONS, reviewed in the clinical context: January 24: White count 9 hemoglobin 7.9 potassium 4.4 creatinine 0.74 January 23: White count 10.7 hemoglobin 7.6 platelets 89 potassium 4 creatinine 0.68 January 22: White count 6.4 hemoglobin 7.4 platelets 64 potassium 4.1 creatinine 0.59 January 22, 2024: White count 9.5 hemoglobin 10 platelets 119 sodium 137 potassium 4.1 creatinine 0.51 albumin 2.8 Previous labs: White count 4.8 hemoglobin 13.3 platelets 217 albumin 4.1 Cardiac catheterization: Normal coronaries KAROL: Bicuspid aortic valve. Area 0.6 cm Assessment plan: -Status post aortic valve repair for severe arctic stenosis -Acute ventilator support, postanesthesia for surgery-extubated January 22 -Sedation with IV propofol-discontinued -PACs Lopressor -Acute postprocedure blood loss anemia expected from surgery: Follow H&H IV Ferrlecit -Acute hypoalbuminemia, reactive and from blood loss anemia -Acute dilutional postprocedure thrombocytopenia, follow -Primary osteoarthritis -Kidney stones, asymptomatic -History of gastric sleeve surgery Discussed. Using incentive spirometry. Ambulating. Thank you Dr. Carlisle Past Medical History Past Medical History: Osteoarthritis (OA) Additional Past Medical History / Comment(s): heart murmur,Aortic stenosis, Covid Aug 2023,kidney stones History of Any Multi-Drug Resistant Organisms: None Reported Past Surgical History: Bariatric Surgery, Cholecystectomy, Hysterectomy, Joint Replacement Additional Past Surgical History / Comment(s): gastric sleeve surgery, rt knee replacement,keely cataracts,partial hyst Past Anesthesia/Blood Transfusion Reactions: No Reported Reaction Additional Past Anesthesia/Blood Transfusion Reaction / Comm: no hx blood transfusion Past Psychological History: No Psychological Hx Reported Smoking Status: Never smoker Past Alcohol Use History: None Reported Past Drug Use History: None Reported
[2024-01-25 12:12] LABS: Glucose,Whole Blood 124 mg/dL (70-110)
--- NOTE | 2024-01-25 12:20 | P.PN ---
Subjective Progress Note Date: 01/25/24 This is a 73-year-old female patient with a known history of nephrolithiasis hyperlipidemia arthritis and bicuspid aortic valve stenosis. She was brought in electively today for an aortic valve replacement. She is seen today in consultation in the intensive care unit. She is currently intubated on the mechanical ventilator on assist-control mode at a rate of 20, tidal volume 400, FiO2 treated down to 40% and a PEEP of 5. Cardiac output 4.4. Cardiac index 2.4. PA pressures 20/12. CVP 7. X-ray reveals postoperative changes with some basilar atelectasis. Endotracheal and nasogastric tubes in good position. White count 13.8. Hemoglobin 10.5. Platelets 138. INR 1.3. Sodium 137. Potassium 4.1. Bicarb 23. BUN 12. Creatinine 0.51. Glucose 123. Right and left, mediastinal chest tubes in good position. Pacer wires in place with backup pacing at 80 bpm. Right IJ Shasta-Uzma catheter in place. Left brachial arterial line in place. Heart hugger in place. Patient was reevaluated today on 01/23/24, patient is now postoperative day #1, sitting at bedside recliner, not in any distress, patient is on room air, she was extubated uneventfully LAR yesterday around 1620 5 PM. Currently in sinus rhythm, hemodynamically stable, not requiring any inotropes or any pressors. Patient has some chest discomfort which is expected, continues to have mediastinal right and left pleural chest tubes in place, and continues to have right internal jugular with Shasta-Uzma catheter in place/right IJ, chest x-ray showed mostly postoperative changes, no acute processes noted. Lines and catheters were all noted chest tubes were noted CBC is relatively unremarkable hemoglobin is 7.4 today. And as expected, Basic metabolic profile is normal and renal profile is normal Reevaluate today on 01/24/2024, patient is now postoperative day #2, doing extremely well, sitting at the bedside recliner, not in any distress, on room air, hemodynamically stable not requiring any pressors or any inotropes. Patient is participating in incentive spirometry, her chest x-ray is reassuring, continues to have right internal jugular Cordis, right radial arterial line, mediastinal and right left pleural chest tube remain in place. For now WBC count is 10.7 hemoglobin 7.6 basic metabolic profile is normal and renal profile is normal The patient is seen today January 25, 2024 in follow-up in the intensive care unit. Postoperative day #3. Currently sitting up in a chair at the bedside. Awake and alert in no acute distress. She is maintaining good O2 saturations in the upper 90s on room air. She has been afebrile. Hemodynamically stable. Chest x-ray reveals trace left pleural effusion. Right left pleural chest tubes remain. No leaks. Pacer wires in place, grounded. White count 9.0. Hemoglobin 7.9. Platelets 87,000. Sodium 137. Potassium 4.4. Bicarb 27. BUN 25. Creatinine 0.74. Glucose 91. She is working well with the incentive spirometer. Continued on bronchodilators. She remains on Arixtra. Objective - Vital Signs Vital signs: Vital Signs Temp 98.6 F 01/25/24 08:00 Pulse 71 01/25/24 10:00 Resp 16 01/25/24 10:00 BP 92/54 01/25/24 10:00 Pulse Ox 98 01/25/24 10:00 FiO2 40 01/22/24 16:00 Intake & Output 01/24/24 01/25/24 01/25/24 18:59 06:59 18:59 Intake Total 152 340 Output Total 295 295 Balance -143 -295 340 Weight 80.7 kg Intake: IV 152 100 Lactated Ringers 1,000 ml 40 @ 20 mls/hr IV .Q24H KUN Rx#:[id number] Sodium Ferric Gluconat- 100 100 Sucrose 125 mg In Sodium Chloride 0.9% 100 ml @ 100 mls/hr IVPB DAILY KUN Rx#:[id number] pressure bags 12 Oral 240 Output: Chest Tube Drainage 120 200 Left 60 60 Mediastinal 0 Right 60 140 Urine 175 95 Other: Voiding Method Indwelling Catheter Indwelling Catheter # Voids 1 ABP, PAP, CO, CI - Last Documented Arterial Blood Pressure 104/39 Pulmonary Artery Pressure 16/4 Cardiac Output 5.2 Cardiac Index 2.8 - Exam GENERAL EXAM: Alert, pleasant, 73-year-old female, up in a chair, on room air, comfortable in no apparent distress. HEAD: Normocephalic. EYES: Normal reaction of pupils, equal size. NOSE: Clear with pink turbinates. THROAT: No erythema or exudates. NECK: No masses, no JVD. CHEST: Sternal dressing dry and intact. Heart hugger in place. Pacer wires in place, grounded. Right and left pleural chest tubes in place. LUNGS: Equal air entry with faint crackles in the posterior bases. CVS: S1 and S2 normal with no audible murmur, regular rhythm. ABDOMEN: No hepatosplenomegaly, normal bowel sounds, no guarding or rigidity. SPINE: No scoliosis or deformity SKIN: No rashes CENTRAL NERVOUS SYSTEM: No focal deficits, tone is normal in all 4 extremities. EXTREMITIES: SCDs in place. No clubbing, no cyanosis. Peripheral pulses are intact. - Labs CBC & Chem 7: 01/25/24 03:50 01/25/24 03:50 Labs: Abnormal Lab Results - Last 24 Hours (Table) 01/24/24 01/24/24 01/24/24 Range/Units 16:14 19:58 22:13 RBC (3.80-5.40) m/uL Hgb (11.4-16.0) gm/dL Hct (34.0-46.0) % Plt Count (150-450) k/uL Sodium 136 L (137-145) mmol/L BUN 24 H (7-17) mg/dL POC Glucose (mg/dL) 113 H 141 H (70-110) mg/dL Total Protein (6.3-8.2) g/dL Albumin (3.5-5.0) g/dL 01/25/24 01/25/24 01/25/24 Range/Units 03:50 03:50 06:11 RBC 2.63 L (3.80-5.40) m/uL Hgb 7.9 L (11.4-16.0) gm/dL Hct 23.8 L (34.0-46.0) % Plt Count 87 L (150-450) k/uL Sodium (137-145) mmol/L BUN 25 H (7-17) mg/dL POC Glucose (mg/dL) 112 H (70-110) mg/dL Total Protein 5.0 L (6.3-8.2) g/dL Albumin 2.9 L (3.5-5.0) g/dL Assessment and Plan Assessment: Symptomatic bicuspid aortic valve stenosis. Status post aortic valve replacement. Postoperative day # 3 History of nephrolithiasis Hyperlipidemia Arthritis Plan: The patient was seen and evaluated Chest x-ray, labs and medications reviewed Encourage increased use of the incentive spirometer Continue bronchodilators Increase her activity as tolerated Stable and on room air We will continue to follow I have personally seen and examined the patient, performed the documentation and the assessment and plan as written. Number of minutes spent on the visit: 10.
[2024-01-25 17:17] LABS: Glucose,Whole Blood 131 mg/dL (70-110)
[2024-01-25 19:58] LABS: Glucose,Whole Blood 110 mg/dL (70-110)
--- NOTE | 2024-01-25 22:02 | PN ---
PROGRESS NOTE SUBJECTIVE: Raina is a 73-year-old lady, who is admitted to hospital following aortic valve replacement for severe aortic stenosis secondary to bicuspid aortic valve. She also had left atrial appendage ligation. She is postop day #3. Remains in ICU. She has [address] Has been downgraded to selective care. OBJECTIVE: VITAL SIGNS: Heart rate is 70 beats per minute, blood pressure 92/54, respiratory rate 18, O2 saturation is 98% on room air. NECK: There is no jugular venous distention. CHEST: Reveals diminished air entry at the bases. HEART: Reveals first and second heart sounds. No gallop. Has a systolic murmur at the apex. ABDOMEN: Soft. EXTREMITIES: Did not reveal any edema. Peripheral pulses are felt. Patient is currently on aspirin, Lipitor, Lopressor 12.5 b.i.d. along with nebulizers. ASSESSMENT: Aortic stenosis, status post aortic valve replacement. PLAN: Continue with current medications. Incentive spirometry. Increase her activity. MMODL / IJN: [id number] /
[2024-01-26 04:31] LABS: African American GFR (CKD) >90 (>60 ml/min/1.73 sqM); Anion Gap 3 mmol/L; Blood Urea Nitrogen 24 mg/dL (7-17); Calcium 8.4 mg/dL (8.4-10.2); Carbon Dioxide 26 mmol/L (22-30); Chloride 108 mmol/L (98-107); Glucose 111 mg/dL (74-99); Non-African American GFR(CKD) 82 (>60 ml/min/1.73 sqM); Potassium 3.6 mmol/L (3.5-5.1); Sodium 137 mmol/L (137-145)
[2024-01-26 04:40] LABS: HCT 24.1 % (34.0-46.0); MCHC 33.2 g/dL (31.0-37.0); MCV 90.3 fL (80.0-100.0); Mean Platelet Volume 10.9; Platelet Count 126 k/uL (150-450); RBC 2.67 m/uL (3.80-5.40); RDW 14.8 % (11.5-15.5)
[2024-01-26] MEDS: POTASSIUM CHLORIDE ER 20 MEQ TAB.ER PO SCH (06:31)
[2024-01-26 06:32] LABS: Glucose,Whole Blood 101 mg/dL (70-110)
--- NOTE | 2024-01-26 08:33 | XR ---
EXAMINATION TYPE: XR chest 1V portable DATE OF EXAM: 01/26/2024 6:15 AM CLINICAL INDICATION:Female, 73 years old with history of post cardiac surgery; COMPARISON: Chest radiograph from one day prior. TECHNIQUE: XR chest 1V portable Frontal view of the chest. FINDINGS: Lungs/Pleura: There is no evidence of pleural effusion, focal consolidation, or pneumothorax. Pulmonary vascularity: Unremarkable. Heart/mediastinum: Cardiomediastinal silhouette is enlarged and stable. Atherosclerotic calcificatio ns are seen in the aorta. Left atrial appendage occlusion device is present. Post aortic valve repai r changes. Musculoskeletal: No acute osseous pathology. Other findings: None Lines/Tubes: Right thoracotomy tube is present without evidence of pneumothorax. IMPRESSION: Post surgical changes with stable exam.
--- NOTE | 2024-01-26 10:03 | P.PN ---
Subjective Progress Note Date: 01/26/24 Principal diagnosis: Severe aortic valve stenosis with bicuspid aortic valve. History of hyperlipidemia, arthritis, lifelong non-smoker, and family history of aortic valve replacement in both father and sister POD #4 aortic valve replacement using a 21 mm Lynch Inspiris bioprosthetic valve, ligation of the left atrial appendage using a 35 mm AtriClip, epiaortic ultrasound and intraoperative transesophageal echocardiogram Postoperative acute blood loss anemia and thrombocytopenia, expected given hemodilution The patient was seen and examined with Dr. March sitting up in recliner at this morning in no acute distress. Currently in sinus rhythm, hemodynamically stable. Does complain of expected postsurgical chest discomfort which she is tolerating on current medication regimen, denies shortness of breath. Right pleural chest tube remains. Chest x-ray, labs reviewed. Patient did ambulate in hallway yesterday multiple times. Transfer orders placed yesterday. No other new concerns. Objective - Vital Signs Vital signs: Vital Signs Temp 98.2 F 01/26/24 04:00 Pulse 80 01/26/24 04:00 Resp 17 01/26/24 04:00 BP 104/56 01/26/24 04:00 Pulse Ox 98 01/26/24 04:00 FiO2 40 01/22/24 16:00 Intake & Output 01/25/24 01/26/24 01/26/24 18:59 06:59 18:59 Intake Total 460 Output Total 230 470 Balance 230 -470 Weight 80.4 kg Intake: IV 100 Sodium Ferric Gluconat- 100 Sucrose 125 mg In Sodium Chloride 0.9% 100 ml @ 100 mls/hr IVPB DAILY [facility] Rx#:[id number] Oral 360 Output: Chest Tube Drainage 30 170 Right 30 170 Urine 200 300 Other: Voiding Method Toilet Toilet # Voids 1 1 # Bowel Movements 1 ABP, PAP, CO, CI - Last Documented Arterial Blood Pressure 104/39 Pulmonary Artery Pressure 16/4 Cardiac Output 5.2 Cardiac Index 2.8 - Exam CONSTITUTIONAL: Appears comfortable, cooperative, no acute distress RESPIRATORY: Lungs sounds diminished bilaterally. Respirations even, nonlabored. Currently on room air with oxygen saturation 98%. Able to achieve 1000 mL on incentive spirometry. Strong nonproductive cough. CARDIOVASCULAR: S1, S2 present. Regular rate and rhythm, sinus rhythm on te lemetry. Sternum stable. Palpable peripheral pulses bilaterally. No edema present. No calf pain or tenderness noted. Heart hugger in place with patient demonstrating appropriate use. Antiembolism stockings, SCDs present. GASTROINTESTINAL: Abdomen soft, nontender, nondistended. Active bowel sounds present 4 quadrants. Tolerating diet. Positive bowel movements 4/2 GENITOURINARY: Continues to void although not captured for accurate I/O INTEGUMENTARY: Skin is warm and dry with evidence of good perfusion. Anterior chest incision well approximated and covered with dry intact dressing NEUROLOGIC: Cranial nerves II through XII intact MUSKULOSKELETAL: Able to move all extremities, strength equal bilaterally PSYCHIATRIC: Alert and oriented to person place and time, appropriate affect, intact judgment and insight INVASIVE LINES AND TUBES: Right pleural chest tube present and connected to wall suction, no air leaks present, 50 mL serosanguineous drainage overnight, 150 mL in the last 24 hours. A/V epicardial pacemaker wires present, grounded - Allied health notes Allied health notes reviewed: nursing - Labs CBC & Chem 7: 01/26/24 03:55 01/26/24 03:55 Labs: Abnormal Lab Results - Last 24 Hours (Table) 01/25/24 01/25/24 01/26/24 Range/Units 12:11 17:16 03:55 RBC 2.67 L (3.80-5.40) m/uL Hgb 8.0 L (11.4-16.0) gm/dL Hct 24.1 L (34.0-46.0) % Plt Count 126 L (150-450) k/uL Chloride (98-107) mmol/L BUN (7-17) mg/dL Glucose (74-99) mg/dL POC Glucose (mg/dL) 124 H 131 H (70-110) mg/dL 01/26/24 Range/Units 03:55 RBC (3.80-5.40) m/uL Hgb (11.4-16.0) gm/dL Hct (34.0-46.0) % Plt Count (150-450) k/uL Chloride 108 H (98-107) mmol/L BUN 24 H (7-17) mg/dL Glucose 111 H (74-99) mg/dL POC Glucose (mg/dL) (70-110) mg/dL - Imaging and Cardiology Chest x-ray: report reviewed, image reviewed Assessment and Plan Assessment: Severe aortic valve stenosis with bicuspid aortic valve, status post bioprosthetic aortic valve replacement History of hyperlipidemia Arthritis Lifelong non-smoker Family history of aortic valve replacement in both father and sister Postoperative acute blood loss anemia and thrombocytopenia, expected Plan: Continue to maximize medical therapy with low-dose aspirin, statin, beta- dora. Will increase beta-dora therapy as tolerated Encourage incentive spirometry use 10 times every hour while awake. Bronchodilators per pulmonology Increase activity, ambulate as tolerated. PT/OT/cardiac rehab consulted Will monitor daily labs and x-rays. Electrolyte replacement per protocol. HIT panel sent, negative. Continue Fe supplementation GI/DVT prophylaxis Insulin management per internal medicine, patient is not diabetic, preoperative hemoglobin A1c 5.1% Pain control with current medication regimen Will discontinue right pleural chest tube Will discontinue epicardial pacer wires today, patient to remain on bedrest for 1 hour post wire removal Continue to record strict accurate intake and output Daily weights [facility], may transfer when bed available Discharge planning in progress, anticipate discharge to home with home care in the next 24-48 hours More recommendations to follow based on patient's progress
[2024-01-26 11:20] LABS: Glucose,Whole Blood 121 mg/dL (70-110)
--- NOTE | 2024-01-26 11:57 | P.PN ---
Subjective Progress Note Date: 01/26/24 This is a 73-year-old female patient with a known history of nephrolithiasis hyperlipidemia arthritis and bicuspid aortic valve stenosis. She was brought in electively today for an aortic valve replacement. She is seen today in consultation in the intensive care unit. She is currently intubated on the mechanical ventilator on assist-control mode at a rate of 20, tidal volume 400, FiO2 treated down to 40% and a PEEP of 5. Cardiac output 4.4. Cardiac index 2.4. PA pressures 20/12. CVP 7. X-ray reveals postoperative changes with some basilar atelectasis. Endotracheal and nasogastric tubes in good position. White count 13.8. Hemoglobin 10.5. Platelets 138. INR 1.3. Sodium 137. Potassium 4.1. Bicarb 23. BUN 12. Creatinine 0.51. Glucose 123. Right and left, mediastinal chest tubes in good position. Pacer wires in place with backup pacing at 80 bpm. Right IJ Ringoes-Uzma catheter in place. Left brachial arterial line in place. Heart hugger in place. Patient was reevaluated today on 01/23/24, patient is now postoperative day #1, sitting at bedside recliner, not in any distress, patient is on room air, she was extubated uneventfully LAR yesterday around 1620 5 PM. Currently in sinus rhythm, hemodynamically stable, not requiring any inotropes or any pressors. Patient has some chest discomfort which is expected, continues to have mediastinal right and left pleural chest tubes in place, and continues to have right internal jugular with Ringoes-Uzma catheter in place/right IJ, chest x-ray showed mostly postoperative changes, no acute processes noted. Lines and catheters were all noted chest tubes were noted CBC is relatively unremarkable hemoglobin is 7.4 today. And as expected, Basic metabolic profile is normal and renal profile is normal Reevaluate today on 01/24/2024, patient is now postoperative day #2, doing extremely well, sitting at the bedside recliner, not in any distress, on room air, hemodynamically stable not requiring any pressors or any inotropes. Patient is participating in incentive spirometry, her chest x-ray is reassuring, continues to have right internal jugular Cordis, right radial arterial line, mediastinal and right left pleural chest tube remain in place. For now WBC count is 10.7 hemoglobin 7.6 basic metabolic profile is normal and renal profile is normal The patient is seen today January 25, 2024 in follow-up in the intensive care unit. Postoperative day #3. Currently sitting up in a chair at the bedside. Awake and alert in no acute distress. She is maintaining good O2 saturations in the upper 90s on room air. She has been afebrile. Hemodynamically stable. Chest x-ray reveals trace left pleural effusion. Right left pleural chest tubes remain. No leaks. Pacer wires in place, grounded. White count 9.0. Hemoglobin 7.9. Platelets 87,000. Sodium 137. Potassium 4.4. Bicarb 27. BUN 25. Creatinine 0.74. Glucose 91. She is working well with the incentive spirometer. Continued on bronchodilators. She remains on Arixtra. The patient is seen today January 26, 2024 in follow-up in the intensive care unit. Postoperative day #4. She is awake and alert in no acute distress. Sitting up in chair at the bedside. She continues to maintain good O2 saturations in the 90s on room air. She is afebrile. Hemodynamically stable. Chest tubes have been removed. Chest x-ray reveals no evidence of pneumothorax. No pleural effusion. No focal consolidation. White count 8.0. Hemoglobin 8.0. Platelets 126. Sodium 137. Potassium 3.6. Bicarb 26. BUN 24. Creatinine 0.74. Glucose 111. Arixtra for DVT prophylaxis. Objective - Vital Signs Vital signs: Vital Signs Temp 98.3 F 01/26/24 08:00 Pulse 80 01/26/24 04:00 Resp 16 01/26/24 08:00 BP 108/59 01/26/24 09:00 Pulse Ox 97 01/26/24 08:00 FiO2 40 01/22/24 16:00 Intake & Output 01/25/24 01/26/24 01/26/24 18:59 06:59 18:59 Intake Total 460 Output Total 230 470 Balance 230 -470 Weight 80.4 kg Intake: IV 100 Sodium Ferric Gluconat- 100 Sucrose 125 mg In Sodium Chloride 0.9% 100 ml @ 100 mls/hr IVPB DAILY [facility] Rx#:[id number] Oral 360 Output: Chest Tube Drainage 30 170 Right 30 170 Urine 200 300 Other: Voiding Method Toilet Toilet Toilet # Voids 1 1 # Bowel Movements 1 ABP, PAP, CO, CI - Last Documented Arterial Blood Pressure 104/39 Pulmonary Artery Pressure 16/4 Cardiac Output 5.2 Cardiac Index 2.8 - Exam GENERAL EXAM: Alert, oriented 73-year-old female, up in a chair, on room air, in no apparent distress. HEAD: Normocephalic. EYES: Normal reaction of pupils, equal size. NOSE: Clear with pink turbinates. THROAT: No erythema or exudates. NECK: No masses, no JVD. CHEST: Sternal dressing dry and intact. Heart hugger in place. Pacer wires in place, grounded. LUNGS: Equal air entry with no crackles, rhonchi or wheeze. CVS: S1 and S2 normal with no audible murmur, regular rhythm. ABDOMEN: No hepatosplenomegaly, normal bowel sounds, no guarding or rigidity. SPINE: No scoliosis or deformity SKIN: No rashes CENTRAL NERVOUS SYSTEM: No focal deficits, tone is normal in all 4 extremities. EXTREMITIES: SCDs in place. No clubbing, no cyanosis. Peripheral pulses are int act. - Labs CBC & Chem 7: 01/26/24 03:55 01/26/24 03:55 Labs: Abnormal Lab Results - Last 24 Hours (Table) 01/25/24 01/25/24 01/26/24 Range/Units 12:11 17:16 03:55 RBC 2.67 L (3.80-5.40) m/uL Hgb 8.0 L (11.4-16.0) gm/dL Hct 24.1 L (34.0-46.0) % Plt Count 126 L (150-450) k/uL Chloride (98-107) mmol/L BUN (7-17) mg/dL Glucose (74-99) mg/dL POC Glucose (mg/dL) 124 H 131 H (70-110) mg/dL 01/26/24 01/26/24 Range/Units 03:55 11:18 RBC (3.80-5.40) m/uL Hgb (11.4-16.0) gm/dL Hct (34.0-46.0) % Plt Count (150-450) k/uL Chloride 108 H (98-107) mmol/L BUN 24 H (7-17) mg/dL Glucose 111 H (74-99) mg/dL POC Glucose (mg/dL) 121 H (70-110) mg/dL Assessment and Plan Assessment: Symptomatic bicuspid aortic valve stenosis. Status post aortic valve replacement. Postoperative day # 4 History of nephrolithiasis Hyperlipidemia Arthritis Plan: The patient was seen and evaluated Chest x-ray, labs and medications reviewed Stable and on room air Increase her activity as tolerated We will continue to follow I have personally seen and examined the patient, performed the documentation and the assessment and plan as written. Number of minutes spent on the visit: 10.
--- NOTE | 2024-01-26 12:01 | P.PN ---
Progress Note - Text Progress Note Date: 01/26/24 - Chief Complaint Aortic valve surgery - History of Present Illness This is a 73-year-old patient, follows Dr. Calixto. Patient recently underwent a cardiac catheterization that showed normal coronaries. Patient has known severe arctic stenosis with a KAROL showing area of 0.6 cm. Bicuspid arctic valve. Patient today underwent aortic valve repair. Formal note is pending. Patient received albumin and Cell Saver during procedure. Postprocedure in the ICU. Intubated. On propofol and insulin. On the ventilator. Patient has 1 left 1 right pleural chest tube and 1 mediastinal chest tube. FiO2 60%. January 22: Patient extubated this morning. Up in a recliner. Chest tubes remain in place. On clear liquid diet. Patient received IV amiodarone yesterday. DC IV insulin drip. Levemir 10 units IV once. Follow Accu-Cheks. January 23: Sitting up in a recliner. 1 chest tube pulled out. Tolerating some diet. Passed flatus. Feeling better. January 24: Patient did walk about 30-40 steps. [address] Eating some. Passing flatus no BM. Breathing stable. Some discomfort of the operative site. Some PACs. January 25: Patient doing better. Had a bowel movement. Chest tubes are out. Sinus rhythm. Did ambulate. Overall feeling much better. Active Medications Acetaminophen (Acetaminophen Tab 325 Mg Tab) 650 mg PO Q4HR PRN PRN Reason: Fever and/ or Pain Last Admin: 01/26/24 09:42 Dose: 650 mg Albuterol/Ipratropium (Ipratropium-Albuterol 3 Ml Neb) 3 ml INHALATION RT-Q2H PRN PRN Reason: Shortness Of Breath Or Wheezing Albuterol/Ipratropium (Ipratropium-Albuterol 3 Ml Neb) 3 ml INHALATION RT-QID [facility] Last Admin: 01/26/24 09:10 Dose: Not Given Ascorbic Acid (Ascorbic Acid 500 Mg Tab) 1,500 mg PO DAILY [facility] Last Admin: 01/26/24 09:25 Dose: 1,500 mg Aspirin (Aspirin 81 Mg) 81 mg PO DAILY [facility] Last Admin: 01/26/24 09:25 Dose: 81 mg Atorvastatin Calcium (Atorvastatin 40 Mg Tab) 40 mg PO DAILY [facility] Last Admin: 01/26/24 09:25 Dose: 40 mg Benzocaine/Menthol (Benzocaine/Menthol Lozeng 1 Each Lozenge) 1 each MUCOUS MEM Q2H PRN PRN Reason: Sore Throat Bisacodyl (Bisacodyl 10 Mg Supp) 10 mg RECTAL DAILY PRN PRN Reason: Constipation Cholecalciferol (Cholecalciferol 25 Mcg (1000 Iu) Tablet) 25 mcg PO DAILY [facility] Last Admin: 01/26/24 09:25 Dose: 25 mcg Dextrose/Water (Dextrose 50% Syringe 50 Ml) 25 ml IVP PER PROTOCOL PRN; Protocol PRN Reason: Hypoglycemia Dextrose/Water (Dextrose 50% Syringe 50 Ml) 50 ml IVP PER PROTOCOL PRN; Protocol PRN Reason: Hypoglycemia Ferrous Sulfate (Ferrous Sulfate 325 Mg Tab) 325 mg PO BID-W/MEALS [facility] Last Admin: 01/26/24 06:31 Dose: 325 mg Fondaparinux (Fondaparinux 2.5 Mg/0.5 Ml Syringe) 2.5 mg SQ DAILY [facility] Last Admin: 01/25/24 08:56 Dose: 2.5 mg Amiodarone HCl 150 mg/ (Dextrose/Water) 103 mls @ 618 mls/hr IV .Q10M PRN; Protocol PRN Reason: A.FIB/FLUTTER Amiodarone HCl 360 mg/ (Dextrose/Water) 207.2 mls @ 34.533 mls/hr IV .Q6H PRN; Protocol PRN Reason: A.FIB/FLUTTER Amiodarone HCl 450 mg/ (Dextrose/Water) 250 mls @ 16.667 mls/hr IV .Q15H PRN; Protocol PRN Reason: A.FIB/FLUTTER Insulin Aspart (Insulin Aspart (Novolog) 100 Unit/Ml Vial) 0 unit SQ ACHS [facility]; Protocol Last Admin: 01/26/24 06:32 Dose: Not Given Insulin Detemir (Insulin Detemir (Levemir) 100 Unit/Ml Syr) 10 unit SQ DAILY@0700 [facility] Last Admin: 01/26/24 06:33 Dose: 10 unit Magnesium Hydroxide (Magnesium Hydroxide 2,400 Mg/30 Ml Cup) 2,400 mg PO BID PRN PRN Reason: Constipation Metoclopramide HCl (Metoclopramide 5 Mg/Ml 2 Ml Vial) 10 mg IVP Q4H PRN PRN Reason: Nausea And Vomiting Last Admin: 01/23/24 05:50 Dose: 10 mg Metoprolol Tartrate (Metoprolol Tartrate 12.5 Mg Tab) 12.5 mg PO BID [facility] Last Admin: 01/26/24 09:25 Dose: 12.5 mg Miscellaneous Information (Potassium Replacement Protocol 1 Each Misc) 1 each MISCELLANE DAILY PRN; Protocol PRN Reason: Per Protocol Miscellaneous Information (Magnesium Replacement Protocol 1 Each Misc) 1 each MISCELLANE DAILY PRN; Protocol PRN Reason: Per Protocol Ondansetron HCl (Ondansetron 4 Mg/2 Ml Vial) 4 mg IVP Q6HR PRN PRN Reason: Nausea And Vomiting Last Admin: 01/23/24 05:30 Dose: 4 mg Oxycodone HCl (Oxycodone Hcl 5 Mg Tab) 5 mg PO Q6HR PRN PRN Reason: Breakthrough Pain Last Admin: 01/25/24 21:18 Dose: 5 mg Pantoprazole Sodium (Pantoprazole 40 Mg Tablet) 40 mg PO AC-BRKFST [facility] Last Admin: 01/26/24 06:31 Dose: 40 mg Senna/Docusate Sodium (Sennosides-Docusate Sodium 1 Each Tab) 2 each PO HS [facility] Last Admin: 01/25/24 20:15 Dose: 2 each Sodium Chloride (Sodium Chloride 0.9% Flush 10 Ml Syringe) 10 ml IV BID [facility] Last Admin: 01/25/24 20:15 Dose: 10 ml Social history: No smoking no alcohol Physical examination: VITAL SIGNS: 98.3, 16, 90/58, 97% room air GENERAL: In a recliner. All chest tubes removed EYES: Pupils equal. Conjunctiva marvin l. HEENT: [External appearance of nose and ears normal, oral cavity endotracheal tube NECK: JVD unable to assess; masses not palpable. HEART: First and second heart sounds are normal; no edema. LUNGS: Respiratory rate normal l; decreased breath sounds ABDOMEN: Soft, nontender, liver spleen not palpable, no masses palpable. PSYCH: Alert and oriented x3; mood and affect marvin l. INVESTIGATIONS, reviewed in the clinical context: January 25: White count 8 hemoglobin 8 platelets 126 potassium 3.6 creatinine 0 Mick 7.4 January 24: White count 9 hemoglobin 7.9 potassium 4.4 creatinine 0.74 January 23: White count 10.7 hemoglobin 7.6 platelets 89 potassium 4 creatinine 0.68 January 22: White count 6.4 hemoglobin 7.4 platelets 64 potassium 4.1 creatinine 0.59 January 22, 2024: White count 9.5 hemoglobin 10 platelets 119 sodium 137 potassium 4.1 creatinine 0.51 albumin 2.8 Previous labs: White count 4.8 hemoglobin 13.3 platelets 217 albumin 4.1 Cardiac catheterization: Normal coronaries KAROL: Bicuspid aortic valve. Area 0.6 cm Assessment plan: -Status post aortic valve repair for severe arctic stenosis Aspirin for thromboembolic prophylaxis -Acute ventilator support, postanesthesia for surgery-extubated January 22 -Sedation with IV propofol-discontinued -PACs Lopressor -Acute postprocedure blood loss anemia expected from surgery: Follow H&H IV Ferrlecit Oral ferrous sulfate -Acute hypoalbuminemia, reactive and from blood loss anemia -Acute dilutional postprocedure thrombocytopenia, : Improving Follow CBC -Primary osteoarthritis Tylenol as needed -Kidney stones, asymptomatic -History of gastric sleeve surgery Stop Levemir. Other medications to continue. Discussed with patient Thank you Dr. Carlisle Past Medical History Past Medical History: Osteoarthritis (OA) Additional Past Medical History / Comment(s): heart murmur,Aortic stenosis, Covid Aug 2023,kidney stones History of Any Multi-Drug Resistant Organisms: None Reported Past Surgical History: Bariatric Surgery, Cholecystectomy, Hysterectomy, Joint Replacement Additional Past Surgical History / Comment(s): gastric sleeve surgery, rt knee replacement,keely cataracts,partial hyst Past Anesthesia/Blood Transfusion Reactions: No Reported Reaction Additional Past Anesthesia/Blood Transfusion Reaction / Comm: no hx blood transfusion Past Psychological History: No Psychological Hx Reported Smoking Status: Never smoker Past Alcohol Use History: None Reported Past Drug Use History: None Reported
--- NOTE | 2024-01-26 15:29 | PN ---
PROGRESS NOTE SUBJECTIVE: This is a 73-year-old lady with history of aortic stenosis, secondary to bicuspid aortic valve, who underwent aortic valve replacement. The patient's chest tube was removed today. OBJECTIVE: GENERAL: She is feeling much better. VITAL SIGNS: On exam, afebrile, heart rate is 80 beats per minute, blood pressure is 108/59, respiratory rate is 18, and O2 saturation is 97% on room air. CHEST: Reveals diminished air entry bilaterally. HEART: Reveals first and second heart sounds. No gallop. She has a systolic murmur at the apex. ABDOMEN: Soft. EXTREMITIES: Reveal mild edema. Peripheral pulses are felt. MEDICATIONS: The patient is currently on: 1. Aspirin. 2. Lipitor. 3. Lopressor. ASSESSMENT AND PLAN: Aortic stenosis, secondary to bicuspid aortic valve, status post aortic valve replacement. Increase activity. Possible discharge home tomorrow. MMODL / IJN: [id number] /
[2024-01-26] MEDS: METOPROLOL TARTRATE 12.5 MG TAB PO SCH (16:12)
[2024-01-26 16:16] LABS: Glucose,Whole Blood 124 mg/dL (70-110)
[2024-01-26 16:44] LABS: African American GFR (CKD) >90 (>60 ml/min/1.73 sqM); Anion Gap 4 mmol/L; Blood Urea Nitrogen 25 mg/dL (7-17); Calcium 8.8 mg/dL (8.4-10.2); Carbon Dioxide 25 mmol/L (22-30); Chloride 108 mmol/L (98-107); Glucose 91 mg/dL (74-99); Non-African American GFR(CKD) 83 (>60 ml/min/1.73 sqM); Potassium 3.9 mmol/L (3.5-5.1); Sodium 137 mmol/L (137-145)
[2024-01-26 20:09] LABS: Glucose,Whole Blood 102 mg/dL (70-110)
[2024-01-27 04:17] LABS: MCH 29.1 pg (25.0-35.0); MCV 90.8 fL (80.0-100.0); Platelet Count 161 k/uL (150-450); RBC 2.75 m/uL (3.80-5.40); RDW 14.7 % (11.5-15.5); WBC 5.3 k/uL (3.8-10.6)
[2024-01-27 04:29] LABS: African American GFR (CKD) >90 (>60 ml/min/1.73 sqM); Anion Gap 4 mmol/L; Blood Urea Nitrogen 20 mg/dL (7-17); Calcium 8.4 mg/dL (8.4-10.2); Carbon Dioxide 24 mmol/L (22-30); Chloride 110 mmol/L (98-107); Glucose 87 mg/dL (74-99); Non-African American GFR(CKD) 87 (>60 ml/min/1.73 sqM); Potassium 3.7 mmol/L (3.5-5.1); Sodium 138 mmol/L (137-145)
[2024-01-27] MEDS ORDERED: Potassium Replacement Protocol 1 EACH MISC MISCELLANE PRN (05:14)
[2024-01-27] MEDS: POTASSIUM CHLORIDE ER 20 MEQ TAB.ER PO SCH (05:49)
[2024-01-27 06:33] LABS: Glucose,Whole Blood 101 mg/dL (70-110)
[2024-01-27 09:15] VITALS: PULSE 77; RESP 20; TEMP 98.2
--- NOTE | 2024-01-27 09:53 | XR ---
EXAMINATION TYPE: XR chest 2V DATE OF EXAM: 01/27/2024 6:28 AM CLINICAL INDICATION:Female, 73 years old with history of post cardiac surgery; [facility] COMPARISON: Chest radiographs from 01/26/2024. TECHNIQUE: XR chest 2V Frontal and lateral views of the chest. FINDINGS: Lungs/Pleura: There is no evidence of pleural effusion, focal consolidation, or pneumothorax. Pulmonary vascularity: Unremarkable. Heart/mediastinum: Cardiomediastinal silhouette is enlarged and stable. Post aortic valve repair werner nges. Left atrial appendage occlusion device is present. Musculoskeletal: No acute osseous pathology. Removal of thoracotomy tube on the right no significant pneumothorax. IMPRESSION: Post surgical changes, no significant change from prior, No acute cardiopulmonary disease/process.
[2024-01-27] MEDS: METOPROLOL TARTRATE 25 MG TAB PO SCH (09:58)
--- NOTE | 2024-01-27 10:15 | P.PN ---
Subjective Progress Note Date: 01/27/24 Principal diagnosis: Severe aortic valve stenosis with bicuspid aortic valve. History of hyperlipidemia, arthritis, lifelong non-smoker, and family history of aortic valve replacement in both father and sister POD #5 aortic valve replacement using a 21 mm Lynch Inspiris bioprosthetic valve, ligation of the left atrial appendage using a 35 mm AtriClip, epiaortic ultrasound and intraoperative transesophageal echocardiogram Postoperative acute blood loss anemia and thrombocytopenia, expected given hemodilution The patient was seen and examined with Dr. Trujillo sitting up in recliner at this morning in no acute distress. Currently in sinus rhythm, hemodynamically stable . Does complain of expected postsurgical chest discomfort which she is tolerating on current medication regimen, denies shortness of breath. Chest x- ray, labs reviewed. Patient did ambulate in hallway yesterday multiple times. Anticipates dc to home today. No other new concerns. Objective - Vital Signs Vital signs: Vital Signs Temp 98.2 F 01/27/24 08:00 Pulse 77 01/27/24 08:00 Resp 20 01/27/24 08:00 BP 112/60 01/27/24 09:57 Pulse Ox 93 L 01/27/24 08:00 FiO2 40 01/22/24 16:00 Intake & Output 01/26/24 01/27/24 01/27/24 18:59 06:59 18:59 Intake Total 600 420 Output Total 600 200 Balance 600 -180 -200 Weight 80.6 kg Intake: Oral 600 420 Output: Urine 600 200 Other: Voiding Method Toilet Toilet Toilet # Voids 3 # Bowel Movements 2 ABP, PAP, CO, CI - Last Documented Arterial Blood Pressure 104/39 Pulmonary Artery Pressure 16/4 Cardiac Output 5.2 Cardiac Index 2.8 - Exam CONSTITUTIONAL: Appears comfortable, cooperative, no acute distress RESPIRATORY: Lungs sounds diminished bilaterally. Respirations even, nonlabored. Currently on room air with oxygen saturation 98%. Able to achieve 1000 mL on incentive spirometry. Strong nonproductive cough. CARDIOVASCULAR: S1, S2 present. Regular rate and rhythm, sinus rhythm on telemetry. Sternum stable. Palpable peripheral pulses bilaterally. No edema present. No calf pain or tenderness noted. Heart hugger in place with patient demonstrating appropriate use. Antiembolism stockings, SCDs present. GASTROINTESTINAL: Abdomen soft, nontender, nondistended. Active bowel sounds present 4 quadrants. Tolerating diet. Positive bowel movements 4/2 GENITOURINARY: Continues to void INTEGUMENTARY: Skin is warm and dry with evidence of good perfusion. Anterior chest incision well approximated NEUROLOGIC: Cranial nerves II through XII intact MUSKULOSKELETAL: Able to move all extremities, strength equal bilaterally PSYCHIATRIC: Alert and oriented to person place and time, appropriate affect, intact judgment and insight - Allied health notes Allied health notes reviewed: nursing - Labs CBC & Chem 7: 01/27/24 03:57 01/27/24 03:57 Labs: Abnormal Lab Results - Last 24 Hours (Table) 01/26/24 01/26/24 01/26/24 Range/Units 11:18 16:14 16:15 RBC (3.80-5.40) m/uL Hgb (11.4-16.0) gm/dL Hct (34.0-46.0) % Chloride 108 H (98-107) mmol/L BUN 25 H (7-17) mg/dL POC Glucose (mg/dL) 121 H 124 H (70-110) mg/dL 01/27/24 01/27/24 Range/Units 03:57 03:57 RBC 2.75 L (3.80-5.40) m/uL Hgb 8.0 L (11.4-16.0) gm/dL Hct 25.0 L (34.0-46.0) % Chloride 110 H (98-107) mmol/L BUN 20 H (7-17) mg/dL POC Glucose (mg/dL) (70-110) mg/dL - Imaging and Cardiology Chest x-ray: report reviewed, image reviewed Assessment and Plan Assessment: Severe aortic valve stenosis with bicuspid aortic valve, status post bioprosthetic aortic valve replacement History of hyperlipidemia Arthritis Lifelong non-smoker Family history of aortic valve replacement in both father and sister Postoperative acute blood loss anemia and thrombocytopenia, expected Plan: Continue to maximize medical therapy with low-dose aspirin, statin, beta- dora. Will increase beta-dora therapy as tolerated, increased to 25 mg BID today Encourage incentive spirometry use 10 times every hour while awake. Bronchodilators per pulmonology Increase activity, ambulate as tolerated. PT/OT/cardiac rehab consulted Will monitor daily labs and x-rays. Electrolyte replacement per protocol. HIT panel sent, negative. Continue Fe supplementation GI/DVT prophylaxis Insulin management per internal medicine, patient is not diabetic, preoperative hemoglobin A1c 5.1% Pain control with current medication regimen Continue to record strict accurate intake and output Daily weights Shower today Discharge planning in progress, anticipate discharge to home with home care this afternoon More recommendations to follow based on patient's progress
--- NOTE | 2024-01-27 11:15 | P.PN ---
Subjective Progress Note Date: 01/27/24 This is a 73-year-old female patient with a known history of nephrolithiasis hyperlipidemia arthritis and bicuspid aortic valve stenosis. She was brought in electively today for an aortic valve replacement. She is seen today in consultation in the intensive care unit. She is currently intubated on the mechanical ventilator on assist-control mode at a rate of 20, tidal volume 400, FiO2 treated down to 40% and a PEEP of 5. Cardiac output 4.4. Cardiac index 2.4. PA pressures 20/12. CVP 7. X-ray reveals postoperative changes with some basilar atelectasis. Endotracheal and nasogastric tubes in good position. White count 13.8. Hemoglobin 10.5. Platelets 138. INR 1.3. Sodium 137. Potassium 4.1. Bicarb 23. BUN 12. Creatinine 0.51. Glucose 123. Right and left, mediastinal chest tubes in good position. Pacer wires in place with backup pacing at 80 bpm. Right IJ [place] catheter in place. Left brachial arterial line in place. Heart hugger in place. Patient was reevaluated today on 01/23/24, patient is now postoperative day #1, sitting at bedside recliner, not in any distress, patient is on room air, she was extubated uneventfully LAR yesterday around 1620 5 PM. Currently in sinus rhythm, hemodynamically stable, not requiring any inotropes or any pressors. Patient has some chest discomfort which is expected, continues to have mediastinal right and left pleural chest tubes in place, and continues to have right internal jugular with [place] catheter in place/right IJ, chest x-ray showed mostly postoperative changes, no acute processes noted. Lines and catheters were all noted chest tubes were noted CBC is relatively unremarkable hemoglobin is 7.4 today. And as expected, Basic metabolic profile is normal and renal profile is normal Reevaluate today on 01/24/2024, patient is now postoperative day #2, doing extremely well, sitting at the bedside recliner, not in any distress, on room air, hemodynamically stable not requiring any pressors or any inotropes. Patient is participating in incentive spirometry, her chest x-ray is reassuring, continues to have right internal jugular Cordis, right radial arterial line, mediastinal and right left pleural chest tube remain in place. For now WBC count is 10.7 hemoglobin 7.6 basic metabolic profile is normal and renal profile is normal The patient is seen today January 25, 2024 in follow-up in the intensive care unit. Postoperative day #3. Currently sitting up in a chair at the bedside. Awake and alert in no acute distress. She is maintaining good O2 saturations in the upper 90s on room air. She has been afebrile. Hemodynamically stable. Chest x-ray reveals trace left pleural effusion. Right left pleural chest tubes remain. No leaks. Pacer wires in place, grounded. White count 9.0. Hemoglobin 7.9. Platelets 87,000. Sodium 137. Potassium 4.4. Bicarb 27. BUN 25. Creatinine 0.74. Glucose 91. She is working well with the incentive spirometer. Continued on bronchodilators. She remains on Arixtra. The patient is seen today January 26, 2024 in follow-up in the intensive care unit. Postoperative day #4. She is awake and alert in no acute distress. Sitting up in chair at the bedside. She continues to maintain good O2 saturations in the 90s on room air. She is afebrile. Hemodynamically stable. Chest tubes have been removed. Chest x-ray reveals no evidence of pneumothorax. No pleural effusion. No focal consolidation. White count 8.0. Hemoglobin 8.0. Platelets 126. Sodium 137. Potassium 3.6. Bicarb 26. BUN 24. Creatinine 0.74. Glucose 111. Arixtra for DVT prophylaxis. The patient is seen today January 27, 2024 in follow-up in the intensive care unit. Postoperative day #5. She is awake and alert no acute distress. Sitting up in a chair at the bedside. Maintaining good O2 saturations in the 90s on room air. No IV fluids. Chest tubes, catheters and wires are removed. Chest x-ray reveals no acute cardiopulmonary process. White count 5.3. Hemoglobin 8.0. Platelets 161. Sodium 138. Potassium 3.7. Bicarb 24. BUN 20. Creatinine 0.69. She is working well with the incentive spirometer. Remains on bronchodilators. Remains on Arixtra. Objective - Vital Signs Vital signs: Vital Signs Temp 98.2 F 01/27/24 08:00 Pulse 77 01/27/24 08:00 Resp 20 01/27/24 08:00 BP 112/60 01/27/24 09:57 Pulse Ox 93 L 01/27/24 08:00 FiO2 40 01/22/24 16:00 Intake & Output 01/26/24 01/27/24 01/27/24 18:59 06:59 18:59 Intake Total 600 420 Output Total 600 200 Balance 600 -180 -200 Weight 80.6 kg Intake: Oral 600 420 Output: Urine 600 200 Other: Voiding Method Toilet Toilet Toilet # Voids 3 # Bowel Movements 2 ABP, PAP, CO, CI - Last Documented Arterial Blood Pressure 104/39 Pulmonary Artery Pressure 16/4 Cardiac Output 5.2 Cardiac Index 2.8 - Exam GENERAL EXAM: Alert, very pleasant 73-year-old female, up in a chair, on room air, in no distress. HEAD: Normocephalic. EYES: Normal reaction of pupils, equal size. NOSE: Clear with pink turbinates. THROAT: No erythema or exudates. NECK: No masses, no JVD. CHEST: Sternal dressing dry and intact. Heart hugger in place. Pacer wires in place, grounded. LUNGS: Equal air entry with no crackles, rhonchi or wheeze. CVS: S1 and S2 normal with no audible murmur, regular rhythm. ABDOMEN: No hepatosplenomegaly, normal bowel sounds, no guarding or rigidity. SPINE: No scoliosis or deformity SKIN: No rashes CENTRAL NERVOUS SYSTEM: No focal deficits, tone is normal in all 4 extremities. EXTREMITIES: SCDs in place. No clubbing, no cyanosis. Peripheral pulses are intact. - Labs CBC & Chem 7: 01/27/24 03:57 01/27/24 03:57 Labs: Abnormal Lab Results - Last 24 Hours (Table) 01/26/24 01/26/24 01/26/24 Range/Units 11:18 16:14 16:15 RBC (3.80-5.40) m/uL Hgb (11.4-16.0) gm/dL Hct (34.0-46.0) % Chloride 108 H (98-107) mmol/L BUN 25 H (7-17) mg/dL POC Glucose (mg/dL) 121 H 124 H (70-110) mg/dL 01/27/24 01/27/24 Range/Units 03:57 03:57 RBC 2.75 L (3.80-5.40) m/uL Hgb 8.0 L (11.4-16.0) gm/dL Hct 25.0 L (34.0-46.0) % Chloride 110 H (98-107) mmol/L BUN 20 H (7-17) mg/dL POC Glucose (mg/dL) (70-110) mg/dL Assessment and Plan Assessment: Symptomatic bicuspid aortic valve stenosis. Status post aortic valve replacement. Postoperative day # 5 History of nephrolithiasis Hyperlipidemia Arthritis Plan: The patient was seen and evaluated Chest x-ray, labs and medications reviewed Stable and on room air Ambulating in her room Plan is for home today with home care Follow-up in our office in 1 week I have personally seen and examined the patient, performed the documentation and the assessment and plan as written. Number of minutes spent on the visit: 10.
[2024-01-27 11:29] LABS: Glucose,Whole Blood 101 mg/dL (70-110)
[2024-01-27 11:56] VITALS: BP 104/59
--- NOTE | 2024-01-27 15:16 | P.DS ---
Providers Date of admission: 01/22/24 05:35 Expected date of discharge: 01/27/24 Attending physician: Nadeem Carlisle Consults: 01/22/24 12:14 Consult Physician Routine Consulting Provider: Kael Casillas Consult Reason/Comments: Waiter/Waitress Second Class Consult: post cardiac surgery Do you want consulting provider notified?: Yes Consult Physician Routine Consulting Provider: Richard Castillo Consult Reason/Comments: [facility], located within [facility] patient Do you want consulting provider notified?: Yes Consult Physician Routine Consulting Provider: Mitchell Vo Consult Reason/Comments: In Tube Conversion Technician Consult: post cardiac surgery Do you want consulting provider notified?: Yes Primary care physician: [facility] Course: FINAL DIAGNOSIS: Severe aortic valve stenosis with bicuspid aortic valve, status post bioprosthetic aortic valve replacement History of hyperlipidemia Arthritis Lifelong non-smoker Family history of aortic valve replacement in both father and sister Postoperative acute blood loss anemia and thrombocytopenia, expected PRINCIPAL PROCEDURE: Aortic valve replacement using a 21 mm Lynch Inspiris bioprosthetic valve Ligation of the left atrial appendage using a 35 mm AtriClip Epiaortic ultrasound Intraoperative transesophageal echocardiogram HISTORY OF PRESENT ILLNESS: This is a 73-year-old female who follows outpatient with Dr. Calixto for primary care and Dr. Keita for cardiology. She has had a known murmur since an early age, and aortic stenosis has run in her family. She had been experiencing shortness of breath with activity along with fatigue and dizziness. She underwent echocardiogram confirming severe aortic valve stenosis. The patient was referred to Dr. Carlisle from cardiothoracic surgery. She was recommended to undergo aortic valve replacement. The usual perioperative course was discussed in detail with the patient and her family, all risks and benefits were explained, all questions were answered, and consent was obtained to proceed with surgery. The patient was scheduled for elective surgery at the earliest possible date after obtaining dental clearance. HOSPITAL COURSE: The patient was brought to the hospital on 01/22/24, taken to the preoperative area, prepared in the usual fashion, and subsequently taken to the operating room where Dr. Carlisle performed aortic valve replacement. Upon completion of surgery the patient was transferred to the cardiovascular intensive care unit where she was recovered and monitored hemodynamically. She was extubated, all lines, tubes, and drips were discontinued when appropriate, a nd transfer orders were placed for 3 S. cardiac stepdown unit, however there was no bed availability and the patient remained on ICU as a stepdown patient until discharge. Her oxygen was titrated down, she continued to work with physical and occupational therapy, she was tolerating oral diet, her pain was controlled, and she was ready to be discharged to home with [facility] care on postoperative day #5. She received written and verbal instruction regarding her medications, activity restrictions, signs and symptoms requiring physician notification, and follow-up appointments. Patient Condition at Discharge: Stable Plan - Discharge Summary Discharge Rx Participant: No New Discharge Prescriptions: New Atorvastatin [Lipitor] 40 mg PO DAILY #30 tab Pantoprazole [Protonix] 40 mg PO AC-BRKFST #30 tab Sennosides-Docusate Sodium [Senokot-S] 2 each PO HS PRN tab PRN Reason: Constipation Metoprolol Tartrate [Lopressor] 25 mg PO BID #60 tab Continue Vitamin B Complex 1 cap PO DAILY Cholecalciferol [Vitamin D3 (25 Mcg = 1000 Iu)] 1,000 unit PO DAILY traMADol HCL [Ultram] 50 mg PO DAILY PRN PRN Reason: Pain Melatonin 3 mg PO HS PRN PRN Reason: sleep Aspirin 81 mg PO DAILY Acetaminophen [Tylenol Extra Strength] 500 mg PO Q8H PRN PRN Reason: Pain Ascorbic Acid [Vitamin C] 1,500 mg PO DAILY Discharge Medication List Cholecalciferol [Vitamin D3 (25 Mcg = 1000 Iu)] 1,000 unit PO DAILY 11/29/17 [ History] Vitamin B Complex 1 cap PO DAILY 11/29/17 [History] traMADol HCL [Ultram] 50 mg PO DAILY PRN 11/29/17 [History] Aspirin 81 mg PO DAILY 10/12/23 [History] Acetaminophen [Tylenol Extra Strength] 500 mg PO Q8H PRN 01/11/24 [History] Ascorbic Acid [Vitamin C] 1,500 mg PO DAILY 01/11/24 [History] Melatonin 3 mg PO HS PRN 01/21/24 [History] Atorvastatin [Lipitor] 40 mg PO DAILY #30 tab 01/27/24 [Rx] Metoprolol Tartrate [Lopressor] 25 mg PO BID #60 tab 01/27/24 [Rx] Pantoprazole [Protonix] 40 mg PO AC-BRKFST #30 tab 01/27/24 [Rx] Sennosides-Docusate Sodium [Senokot-S] 2 each PO HS PRN tab 01/27/24 [Rx] Follow up Appointment(s)/Referral(s): Kael Casillas MD [STAFF PHYSICIAN] - 02/19/24 2:30 pm [facility] [NON-STAFF] - 4 Weeks (You will receive a phone call in approximately 4-6 weeks for evaluation for cardiac rehab) Wilmar Calixto DO [Primary Care Provider] - 02/15/24 8:20 am Ranjit Keita DO [STAFF PHYSICIAN] - 02/09/24 9:00 am Henrique Mejía NPC [Nurse Practitioner] - 02/02/24 1:30 pm (You will be seen in the surgeon's office behind the hospital in [facility], [address]. Office phone number is ) [facility], [NON-STAFF] - 1-2 Days ([facility] will call you to arrange a visit; you should be seen the day after discharge then 2-3 times per week for 4 weeks) Nadeem Carlisle MD [STAFF PHYSICIAN] - 02/26/24 2:00 pm Ambulatory/Diagnostic Orders: Complete Blood Count w/diff [LAB.AMB] Time Frame: 3 Days, Location: None Selected Comprehensive Metabolic Panel [LAB.AMB] Time Frame: 3 Days, Location: None Selected Activity/Diet/Wound Care/Special Instructions: DISCHARGE INSTRUCTIONS: 1. No driving for 4 weeks, or until physician gives their ok. 2. The patient should sleep in their own bed, no medical bed needed. 3. Stairs are not an issue. If the bedroom is upstairs, it is advised that the patient go up at night and down in the morning for the first week. Go slowly, using handrail and take 1 step at a time. 4. BARNEY hose are to be worn for 30 days post surgery or until physician discontinues. 5. Heart hugger is to be worn 100% of the time until physician discontinues.(except when showering) 6. No lifting, pushing, or pulling more than 10 pounds for 12 weeks. The physician will advise of any restriction changes. 7. The patient is expected to continue the prescribed walking program. 8. Continue pain control per as needed orders. 9. Continue with incentive spirometry and splinting/heart hugger until otherwi se directed by the physician. 10. Must shower daily using liquid antibacterial soap 11. Routine sternal incision care. No powders, lotions, ointments on incisions. No dressings are necessary on incisions unless they are draining. Dermabond tape is to remain on sternal incision until surgeon follow-up. 12. Please call surgeon/EPIC DIRECTOR for temp greater than 101 F or purulent drainage from incisions. 13. You should weigh yourself daily, record and bring log with you to follow up appointments. 14. All prescriptions given by surgeon for 30 days. Refills need to be filled through sliding joint maker/primary care physician. 15. A Red armband has been placed on the patient. It should be worn for 30 days post discharge from surgery and will be removed by the cardiac surgeons. If an ER visit is necessary, please make sure the number on the Red armband is called before going to ER. 16. You have been referred to and are expected to begin Cardiac Rehab in approximately 4-6 weeks. 17. You must be diligent about continuing to see the dentist, however no cleanings for 3 months HOME HEALTH SERVICES TO PROVIDE: RN SKILLED HOME CARE SERVICES FOR POST-OP SURGICAL PATIENTS WITH THE FOLLOWING: Coronary Artery Bypass Surgery (CABG), Mitral Valve Replacement/Repair ( MVR), Aortic Valve Replacement/Repair (AVR) RN TO CONTINUE EDUCATION FROM ``ROAD TO A HEALTH HEART PATIENT EDUCATION MANUAL (GIVEN TO PATIENT IN THE HOSPITAL) MEDICATION RECONCILIATION WITH EDUCATION NEEDED ON FIRST HOME VISIT EMPHASIZE IMPORTANCE OF WEARING BREAST SUPPORT/HEART HUGGER ENCOURAGE USE OF INCENTIVE SPIROMETER 10 X EVERY HOUR WHILE AWAKE ENCOURAGE UTILIZATION OF LOWER EXTREMITY COMPRESSION STOCKINGS/BARNEY HOSE and ELEVATE LEGS ABOVE LEVEL OF HEART WHILE AT REST. ENCOURAGE AMBULATION 3-5x/day INCREASING TOLERATES, WHILE AVOIDING EXTREMES IN TEMPERATURE FREQUENCY: RN TO OPEN THE PATIENT WITHIN 24 HOURS OF DISCHARGE FROM THE HOSPITAL WITH [place]HE[place] [facility] [place] VISIT 2-3 X A WEEK FOR 4 WEEKS ESTABLISHED BY PATIENT NEEDS. LABORATORY: CBC, CMP TO BE DRAWN ON THE THIRD DAY HOME, (RAN STAT) FAX RESULTS TO [phone]. TELEHEALTH PARAMETERS: WEIGHT: NOTIFY MD OF WEIGHT GAIN OF 2 LBS IN 24 HOURS OR 5 LBS IN ONE WEEK HR: NOTIFY MD OF HR <55 BPM OR HR>100 BPM BP: NOTIFY MD IF BP <90/55 OR BP>140/100 O2 SAT: NOTIFY MD IF PO2<93% ON ROOM AIR SEND TELEHEALTH REPORT TO RETAIL COMMISSION SALES ASSOCIATE AND CARDIOVASCULAR SURGEON THE FIRST WEEK OF CARE AND THEN BI-WEEKLY. PLEASE ADDITIONALLY COMMUNICATE ANY ABNORMALS AND NEW FINDINGS TO THE SURGEONS OFFICE. Discharge Disposition: HOME SELF-CARE
--- NOTE | 2024-01-27 15:40 | P.PN ---
Progress Note - Text Progress Note Date: 01/27/24 - Chief Complaint Aortic valve surgery - History of Present Illness This is a 73-year-old patient, follows Dr. Calixto. Patient recently underwent a cardiac catheterization that showed normal coronaries. Patient has known severe arctic stenosis with a KAROL showing area of 0.6 cm. Bicuspid arctic valve. Patient today underwent aortic valve repair. Formal note is pending. Patient received albumin and Cell Saver during procedure. Postprocedure in the ICU. Intubated. On propofol and insulin. On the ventilator. Patient has 1 left 1 right pleural chest tube and 1 mediastinal chest tube. FiO2 60%. January 22: Patient extubated this morning. Up in a recliner. Chest tubes remain in place. On clear liquid diet. Patient received IV amiodarone yesterday. DC IV insulin drip. Levemir 10 units IV once. Follow Accu-Cheks. January 23: Sitting up in a recliner. 1 chest tube pulled out. Tolerating some diet. Passed flatus. Feeling better. January 24: Patient did walk about 30-40 steps. [address] Eating some. Passing flatus no BM. Breathing stable. Some discomfort of the operative site. Some PACs. January 25: Patient doing better. Had a bowel movement. Chest tubes are out. Sinus rhythm. Did ambulate. Overall feeling much better. January 26: Doing well. Patient excited about going home. Tolerating diet. Had a bowel movement. Breathing well. Ambulated. Social history: No smoking no alcohol Physical examination: VITAL SIGNS: 98.2, 77, 20, 112 x 60, 93% room air GENERAL: In a recliner. Comfortable EYES: Pupils equal. Conjunctiva marvin l. HEENT: [External appearance of nose and ears normal, oral cavity endotracheal tube NECK: JVD unable to assess; masses not palpable. HEART: First and second heart sounds are normal; no edema. LUNGS: Respiratory rate normal l; decreased breath sounds ABDOMEN: Soft, nontender, liver spleen not palpable, no masses palpable. PSYCH: Alert and oriented x3; mood and affect marvin l. INVESTIGATIONS, reviewed in the clinical context: January 26: White count 5.3 hemoglobin 8 platelets 161 potassium 3.7 creatinine 0.69 January 25: White count 8 hemoglobin 8 platelets 126 potassium 3.6 creatinine 0 Mick 7.4 January 24: White count 9 hemoglobin 7.9 potassium 4.4 creatinine 0.74 January 23: White count 10.7 hemoglobin 7.6 platelets 89 potassium 4 creatinine 0.68 January 22: White count 6.4 hemoglobin 7.4 platelets 64 potassium 4.1 creatinine 0.59 January 22, 2024: White count 9.5 hemoglobin 10 platelets 119 sodium 137 potassium 4.1 creatinine 0.51 albumin 2.8 Previous labs: White count 4.8 hemoglobin 13.3 platelets 217 albumin 4.1 Cardiac catheterization: Normal coronaries KAROL: Bicuspid aortic valve. Area 0.6 cm Assessment plan: -Status post aortic valve repair for severe arctic stenosis Aspirin for thromboembolic prophylaxis -Acute ventilator support, postanesthesia for surgery-extubated January 22 -Sedation with IV propofol-discontinued -PACs Lopressor -Acute postprocedure blood loss anemia expected from surgery: Follow H&H IV Ferrlecit Oral ferrous sulfate -Acute hypoalbuminemia, reactive and from blood loss anemia -Acute dilutional postprocedure thrombocytopenia, : I improved -Primary osteoarthritis Tylenol as needed -Kidney stones, asymptomatic -History of gastric sleeve surgery Discussed with patient. Follow-up with PCP. Questions answered. Thank you Dr. Carlisle Past Medical History Past Medical History: Osteoarthritis (OA) Additional Past Medical History / Comment(s): heart murmur,Aortic stenosis, Covid Aug 2023,kidney stones History of Any Multi-Drug Resistant Organisms: None Reported Past Surgical History: Bariatric Surgery, Cholecystectomy, Hysterectomy, Joint Replacement Additional Past Surgical History / Comment(s): gastric sleeve surgery, rt knee replacement,keely cataracts,partial hyst Past Anesthesia/Blood Transfusion Reactions: No Reported Reaction Additional Past Anesthesia/Blood Transfusion Reaction / Comm: no hx blood transfusion Past Psychological History: No Psychological Hx Reported Smoking Status: Never smoker Past Alcohol Use History: None Reported Past Drug Use History: None Reported
--- NOTE | 2024-01-27 21:06 | PN ---
PROGRESS NOTE SUBJECTIVE: Raina is a 73-year-old lady, who underwent aortic valve replacement for bicuspid aortic valve with aortic stenosis. She is doing well and is ready to be discharged home. OBJECTIVE: GENERAL: Comfortable at rest. VITAL SIGNS: Stable. CHEST: Reveals good air entry bilaterally. CARDIOVASCULAR: Reveals first and second heart sounds. An ejection systolic murmur in the aortic area. ABDOMEN: Soft. EXTREMITIES: Did not reveal any edema. Peripheral pulses are felt. LABORATORY DATA: Labs show hemoglobin of 8, platelet count is 160. Potassium is 3.7, creatinine is 0.6. ASSESSMENT AND PLAN: Bicuspid aortic valve with aortic stenosis, status post aortic valve replacement. The patient is doing well, stable for discharge. Followup with Dr. Keita in the office. MMODL / IJN: [id number] /
== END 2024-01-27 13:53 | disposition home or self-care (01) | DRG 220 ==
LOC: 2ORMAIN 05:35 → 2SICU 12:41
PROVIDERS: ADMIT Surgery; ATTEND Surgery
PROC: B24BZZ4 Ultrasonography of Heart with Aorta, Transesophageal (ICD-10-PCS; 2024-01-22)
PROC: B24BZZZ Ultrasonography of Heart with Aorta (ICD-10-PCS; 2024-01-22)
PROC: 5A1221Z Performance of Cardiac Output, Continuous (ICD-10-PCS; 2024-01-22)
PROC: 30233H0 Transfusion of Autologous Whole Blood into Peripheral Vein, Percutaneous Approach (ICD-10-PCS; 2024-01-22)
PROC: 30233J1 Transfusion of Nonautologous Serum Albumin into Peripheral Vein, Percutaneous Approach (ICD-10-PCS; 2024-01-22)
PROC: 02RF08Z Replacement of Aortic Valve with Zooplastic Tissue, Open Approach (ICD-10-PCS; principal; 2024-01-22 08:00)
PROC: 02L70CK Occlusion of Left Atrial Appendage with Extraluminal Device, Open Approach (ICD-10-PCS; 2024-01-22 08:00)
DX: Q23.1 Congenital insufficiency of aortic valve (principal); D62 Acute posthemorrhagic anemia; E88.09 Other disorders of plasma-protein metabolism, not elsewhere classified; D69.59 Other secondary thrombocytopenia; I10 Essential (primary) hypertension; I34.0 Nonrheumatic mitral (valve) insufficiency; M19.90 Unspecified osteoarthritis, unspecified site; E78.5 Hyperlipidemia, unspecified; M19.91 Primary osteoarthritis, unspecified site; I49.1 Atrial premature depolarization; N20.0 Calculus of kidney; Z96.651 Presence of right artificial knee joint; Z87.442 Personal history of urinary calculi; Z82.49 Family history of ischemic heart disease and other diseases of the circulatory system; Z98.84 Bariatric surgery status; Z86.16 Personal history of COVID-19; Z79.82 Long term (current) use of aspirin; Z79.899 Other long term (current) drug therapy
CPT/HCPCS: 71045; 71046; 80048; 80053; 81001; 82330; 82805; 83735; 85025; 85027; 85384; 85610; 85730; 86022; 86850; 86891; 86900; 86901; 86920; 87070; 87086; 88305; 88311; 93005; 94002; 94640

== ENCOUNTER 2024-06-11 08:44 | Emergency (ER) | payer MEDICARE, OTHER ==
[2024-06-11] MEDS ORDERED: HYDROmorphone 0.5 MG/0.5 ML SYRINGE ONE (09:13)
--- NOTE | 2024-07-04 17:06 | CT ---
Patient Raina Vieyra ID [id number] Order # [id number] CHEST EXAMINATION TYPE: CT chest angio for PE DATE OF EXAM: 06/11/2024 INDICATION: Elevated d-dimer, back and chest pain CT DLP: 330.3 mGycm, Automated exposure control for dose reduction was used. CONTRAST: Patient injected with 100 mL of Isovue 370. COMPARISON: No comparison available on downtime PACS. TECHNIQUE: CT of the chest is performed on a spiral scan at 2 mm thick sections. Study is performed with intravenous contrast timed for evaluation for pulmonary embolism. This will limit additional po rtions of the evaluation. 3-D MIP images reconstructed by the technologist are reviewed on the compu ter in the coronal and sagittal planes. FINDINGS: No persistent filling defects are evident to suggest an acute pulmonary embolism. No aortic dissectio n is identified. No mediastinal or hilar adenopathy enlarged by CT criteria is evident. The ascending aorta diameter at the level of the main pulmonary artery is 3.6 cm. The main pulmonary artery diameter at the bifurcation is 2.1 cm. Lung windows are clear. Small hypodensity may be within the left lobe thyroid. Limited CT sections were through the upper abdomen. There is a small hiatal hernia. Peripelvic cysts or hydronephrosis may be present on the left kidney. Common bile duct the head of the pancreas appea rs prominent. Correlate with early cystectomy surgical history. IMPRESSION: 1. No acute pulmonary embolism. 2. No acute pulmonary process. 3. Clinical consideration for left hydronephrosis. 4. Some prominence of the common bile duct. This may be within normal limits for postcholecystectomy patient. 5. Small hiatal hernia
--- NOTE | 2024-07-12 15:42 | XR ---
Patient Raina Vieyra ID [id number] Order # EXAMINATION TYPE: XR chest 2V DATE OF EXAM: 06/11/2024 COMPARISON: No comparison available on downtime PACS. INDICATION: Chest pain TECHNIQUE: Frontal and lateral views of the chest are obtained. FINDINGS: The heart size is normal. The pulmonary vasculature is normal. The lungs are clear. Sternotomy wires are present from prior cardiac surgery cardiac valve surgery i s evident. IMPRESSION: 1. No acute pulmonary process.
== END 2024-06-11 13:55 | disposition home or self-care (01) ==
LOC: EC 08:44
DX: M54.6 Pain in thoracic spine (principal)
CPT/HCPCS: 71046; 71275; 93005; 96374; 99284

== ENCOUNTER → 2024-09-07 | Outpatient (CLI) | payer MEDICARE, OTHER ==
--- NOTE | 2024-09-10 17:04 | MM ---
Reason for Exam: Screening (asymptomatic). Last mammogram was performed 1 year(s) and 1 month(s) ago. Patient History: Menarche at age 14. First Full-Term at age 26. Left ovary removed at age 29. Right ovary removed at age 29. Hysterectomy at age 29. Postmenopausal. Patient has history of breast feeding. Patient used Hormonal Contraceptives for 2 years. Sister had breast cancer, age 60. Sister had breast cancer, age 58. Sister had breast cancer, age 76. Sister had ovarian cancer, age 79. Risk Values: Kavitha 5 year model risk: 6.1%. NCI Lifetime model risk: 15.1%. Prior Study Comparison: 05/15/2020 Bilateral Screening Mammogram, [facility]. 07/01/2022 Bilateral MG 3D screening mammo w/cad, [facility]. 08/25/2023 Bilateral MG 3D screening mammo w/cad, [facility]. Tissue Density: There are scattered areas of fibroglandular density. Findings: Analyzed By CAD. The pattern is symmetrical. Multiple benign-appearing punctate calcifications are present. Focal asymmetry at the left nipple is stable. There are new grouped punctate calcifications within the inferior 6:00 posterior position left breast. Magnification views are recommended for additional workup. Right breast:No suspicious groups of microcalcifications, spiculated or lobular masses, architectural distortion or other secondary signs of malignancy are mammographically apparent. Overall Assessment: Incomplete: need additional imaging evaluation, BI-RAD 0 Management: Diagnostic Mammogram of the left breast. A negative mammogram report should not preclude additional follow up of suspicious palpable abnormalities. Patient should continue monthly self breast exam. A clinical breast exam by your physician is recommended on an annual basis and results should be correlated with mammographic findings. Note on Kavitha scores and lifetime risk: 1. A Kavitha score greater than 3% is considered moderate risk. If this is the case, consider specialist referral to assess eligibility for a risk reducing agent. 2. If overall lifetime risk for the development of breast cancer is 20% or higher, the patient may qualify for future screening with alternating mammogram and breast MRI. [facility], , 09/10/2024 5:01 PM. Electronically signed and approved by: Wilmar Gonzalez D.O. Radiologis
== END | disposition home or self-care (01) ==
LOC: RADMAMWWP 15:57
PROVIDERS: ATTEND Family Medicine
DX: Z12.31 Encounter for screening mammogram for malignant neoplasm of breast (principal); R92.323 Mammographic fibroglandular density, bilateral breasts; Z78.0 Asymptomatic menopausal state; Z80.3 Family history of malignant neoplasm of breast
CPT/HCPCS: 77063; 77067

== ENCOUNTER → 2024-09-14 | Outpatient (CLI) | payer MEDICARE, OTHER ==
--- NOTE | 2024-09-14 14:02 | MM ---
Reason for Exam: Additional evaluation requested from abnormal screening. Last screening mammogram was performed less than 1 month ago. Patient History: Menarche at age 14. First Full-Term at age 26. Left ovary removed at age 29. Right ovary removed at age 29. Hysterectomy at age 29. Postmenopausal. Patient has history of breast feeding. Patient used Hormonal Contraceptives for 2 years. Sister had breast cancer, age 60. Sister had breast cancer, age 58. Sister had breast cancer, age 76. Sister had ovarian cancer, age 79. Risk Values: Kavitha 5 year model risk: 6.1%. NCI Lifetime model risk: 15.1%. Prior Study Comparison: 07/01/2022 Bilateral MG 3D screening mammo w/cad, [facility]. 08/25/2023 Bilateral MG 3D screening mammo w/cad, [facility]. 09/07/2024 Bilateral MG 3D screening mammo w/cad, [facility]. Tissue Density: Left: The breasts are heterogeneously dense, which may obscure small masses. Findings: Analyzed By CAD. Dermal calcifications are noted. No suspicious clusters seen. Overall Assessment: Benign, BI-RAD 2 Management: Screening Mammogram of both breasts in 1 year. . Results were given to the patient verbally at the time of exam. Patient should continue monthly self-breast exams. A clinical breast exam by your physician is recommended on an annual basis. This exam should not preclude additional follow-up of suspicious palpable abnormalities. Note on Kavitha scores and lifetime risk: 1. A Kavitha score greater than 3% is considered moderate risk. If this is the case, consider specialist referral to assess eligibility for a risk reducing agent. 2. If overall lifetime risk for the development of breast cancer is 20% or higher, the patient may qualify for future screening with alternating mammogram and breast MRI. [facility], , 09/14/2024 1:58 PM. Electronically signed and approved by: Jam Martin M.D. Radiologis
== END | disposition home or self-care (01) ==
LOC: RADMAMWWP 13:30
PROVIDERS: ATTEND Family Medicine
DX: R92.8 Other abnormal and inconclusive findings on diagnostic imaging of breast (principal); Z78.0 Asymptomatic menopausal state; Z90.722 Acquired absence of ovaries, bilateral; Z80.3 Family history of malignant neoplasm of breast; R92.332 Mammographic heterogeneous density, left breast
CPT/HCPCS: 77065; G0279; 77061